=== PATIENT | female | born 1995 | race Caucasian/White ===

== ENCOUNTER 2020-05-29 22:26 | Emergency (ER) | payer MEDICAID, SELFPAY ==
[2020-05-29 22:36] VITALS: PULSE 108; RESP 18; TEMP 36.9; O2SAT 100; BMI 24.8
--- NOTE | 2020-05-29 23:02 | ED_ITS ---
HPI - Female Genitourinary General Chief complaint: Abdominal Pain Stated complaint: pelvic pain Time Seen by Provider: 05/29/20 22:55 Source: patient Mode of arrival: ambulatory Limitations: no limitations History of Present Illness HPI Narrative: Patient is 6.3 weeks 3 para 3 noticed pain left lower quadrant for last 3- 4 days getting worse radiating to the back. No urinary symptoms no vaginal discharge or bleeding has seen OBGYN in the past but no ultrasound has been done. No nausea/vomiting/fever/no urinary symptoms Related Data Allergies Allergy/AdvReac Type Severity Reaction Status Date / Time No Known Allergies Allergy Verified 05/29/20 22:55 Review of Systems Review of Systems: REVIEW OF SYSTEMS: Pertinent positives and negatives are stated above in the history. GEN: no fevers, chills, fatigue HEENT: no nasal congestion, sore throat, ear pain NEURO: no headache, dizziness, focal weakness PULM: no cough, shortness of breath CV: no chest pain, palpitations, LE edema ABD: no nausea, vomiting, diarrhea : no dysuria, urgency, frequency SKIN: no rash ROS otherwise negative x 10 [facility] Past Medical History Medical History No known health problems Social History Social History Alcohol intake: never Smoking Status: Never smoker Smoked in Last 30 Days: No Use of substances other than those prescribed or required for medical reasons: No Advance Directives: No Advance Directives Information Provided: No Physical Exam Vital Signs: Vital Signs: Last Vital Signs Temp 98.5 F 05/29/20 22:36 Pulse 108 H 05/29/20 22:36 Resp 18 05/29/20 22:36 Pulse Ox 100 05/29/20 22:36 Body Mass Index 24.8 Appearance: Alert. Oriented X3. No acute distress. Eyes: Pupils equal, round and reactive to light. ENT: Pharynx normal. Neck: Normal inspection. Neck supple. CVS: Normal heart rate and rhythm. Pulses normal. Respiratory: No respiratory distress. Breath sounds normal. Abdomen: Soft and mild tenderness left lower quadrant no rebound tenderness or guarding no CVA tenderness. Skin: Skin warm and dry. Normal skin color. Normal skin turgor. Extremities: No lower extremity edema. Good range of movement Neuro: Oriented X 3. No motor deficit. No sensory deficit. Course Course Course Narrative: Ultrasound showed IUP no signs of ectopic workup showed she has a UTI will discharge her home on Macrobid MDM - Female Genitourinary MDM Narrative Medical decision making narrative: Patient 6.3 weeks with left lower quadrant pain for last 3 days will do ultrasound to rule out ectopic Differential Diagnosis Differential diagnosis: Likely urinary tract infection and ovarian cyst Lab Data Attestation: I reviewed the patient's lab results. Result diagrams: 05/29/20 23:19 05/29/20 23:19 Labs: Lab Results 05/29/20 05/29/20 05/29/20 Range/Units 23:19 23:19 23:19 WBC 7.8 (4.8-10.8) X10*3/uL RBC 4.39 (4.20-5.50) X10*6/uL Hgb 12.2 (12.0-16.0) g/dl Hct 36.1 L (37-47) % MCV 82.2 (80-98) fL MCH 27.8 (27.0-33.0) pg MCHC 33.8 (31.0-35.0) g/dl RDW 12.6 (11.0-16.0) % Plt Count 211 (160-400) X10*3/uL MPV 10.5 (9.4-12.3) fL Immature Gran % (Auto) 0.3 (0.0-0.4) % Neut % (Auto) 69.5 (45-73) % Lymph % (Auto) 20.1 (20-40) % Crisp % (Auto) 8.1 (2-11) % Eos % (Auto) 1.7 (0-4) % Baso % (Auto) 0.3 (0-2) % Lymph # (Auto) 1.6 (1.2-4.9) X10*3/uL Crisp # (Auto) 0.6 (0.1-1.2) X10*3/uL Eos # (Auto) 0.1 (0.0-0.4) X10*3/uL Baso # (Auto) 0.0 (0.0-0.2) X10*3/uL Abs Immat Gran (auto) 0.02 (0.00-0.03) X10*3/uL Absolute Neuts (auto) 5.4 (2.0-8.3) X10*3/uL Absolute Nucleated RBC 0.000 (0.0-0.012) X10*3/uL Nucleated RBC % (auto) 0.0 (0.0-0.2) /100WBC Sodium 136 (135-145) mmol/L Potassium 3.6 (3.3-5.1) mmol/l Chloride 106 (96-108) mmol/L Carbon Dioxide 21 L (22-29) mmol/L Anion Gap 13 (12-20) BUN 8 L (9-16) mg/dL Creatinine 0.72 (0.5-1.4) mg/dL Estim Creat Clear Calc 105.0 Estimated GFR > 60 Random Glucose 96 (60-115) mg/dL Calcium 8.9 (8.4-10.2) mg/dL Beta HCG, Quant 41302 mIU/mL Urine Color Urine Appearance Urine pH (5.0-8.0) Ur Specific [place] (1.005-1.025) Urine Protein (NEG-TRACE) MG/DL Urine Glucose (UA) (NEG) MG/DL Urine Ketones (NEG) MG/DL Urine Blood (NEG) Urine Nitrite (NEG) Ur Leukocyte Esterase (NEG) Urine RBC (0) /HPF Urine WBC (0-4) /HPF Ur Squamous Epith Cells /LPF Urine Bacteria /LPF 05/29/20 Range/Units 23:19 WBC (4.8-10.8) X10*3/uL RBC (4.20-5.50) X10*6/uL Hgb (12.0-16.0) g/dl Hct (37-47) % MCV (80-98) fL MCH (27.0-33.0) pg MCHC (31.0-35.0) g/dl RDW (11.0-16.0) % Plt Count (160-400) X10*3/uL MPV (9.4-12.3) fL Immature Gran % (Auto) (0.0-0.4) % Neut % (Auto) (45-73) % Lymph % (Auto) (20-40) % Crisp % (Auto) (2-11) % Eos % (Auto) (0-4) % Baso % (Auto) (0-2) % Lymph # (Auto) (1.2-4.9) X10*3/uL Crisp # (Auto) (0.1-1.2) X10*3/uL Eos # (Auto) (0.0-0.4) X10*3/uL Baso # (Auto) (0.0-0.2) X10*3/uL Abs Immat Gran (auto) (0.00-0.03) X10*3/uL Absolute Neuts (auto) (2.0-8.3) X10*3/uL Absolute Nucleated RBC (0.0-0.012) X10*3/uL Nucleated RBC % (auto) (0.0-0.2) /100WBC Sodium (135-145) mmol/L Potassium (3.3-5.1) mmol/l Chloride (96-108) mmol/L Carbon Dioxide (22-29) mmol/L Anion Gap (12-20) BUN (9-16) mg/dL Creatinine (0.5-1.4) mg/dL Estim Creat Clear Calc Estimated GFR Random Glucose (60-115) mg/dL Calcium (8.4-10.2) mg/dL Beta HCG, Quant mIU/mL Urine Color YELLOW Urine Appearance HAZY Urine pH 6.5 (5.0-8.0) Ur Specific [place] 1.025 (1.005-1.025) Urine Protein NEG (NEG-TRACE) MG/DL Urine Glucose (UA) NEG (NEG) MG/DL Urine Ketones NEG (NEG) MG/DL Urine Blood TRACE (NEG) Urine Nitrite NEG (NEG) Ur Leukocyte Esterase 2+ H (NEG) Urine RBC 1-4 (0) /HPF Urine WBC 5-9 H (0-4) /HPF Ur Squamous Epith Cells 2+ /LPF Urine Bacteria 3+ /LPF
[2020-05-29 23:24] LABS: Basophils Percent Auto 0.3 % (0-2); Eosinophils Absolute Auto 0.1 X10*3/uL (0.0-0.4); Eosinophils Percent Auto 1.7 % (0-4); Hematocrit 36.1 % (37-47); Hemoglobin 12.2 g/dl (12.0-16.0); Imm Gran Abs Auto 0.02 X10*3/uL (0.00-0.03); Imm Gran Pct Auto 0.3 % (0.0-0.4); Lymphocytes Absolute Auto 1.6 X10*3/uL (1.2-4.9); Lymphocytes Percent Auto 20.1 % (20-40); MANUAL DIFF FLAG NO; Mean Corpuscular HGB Conc 33.8 g/dl (31.0-35.0); Mean Corpuscular Hemoglobin 27.8 pg (27.0-33.0); Mean Corpuscular Volume 82.2 fL (80-98); Mean Platelet Volume 10.5 fL (9.4-12.3); Monocytes Absolute Auto 0.6 X10*3/uL (0.1-1.2); Monocytes Percent Auto 8.1 % (2-11); Neutrophils Absolute Auto 5.4 X10*3/uL (2.0-8.3); Neutrophils Percent Auto 69.5 % (45-73); Platelet Count 211 X10*3/uL (160-400); Red Blood Count 4.39 X10*6/uL (4.20-5.50); Red Cell Distribution Width 12.6 % (11.0-16.0); White Blood Count 7.8 X10*3/uL (4.8-10.8)
[2020-05-29 23:25] LABS: Glucose Urine UA NEG (NEG); Leukocyte Esterase Urine 2+ (NEG); Nitrite Urine NEG (NEG); PH 6.5 (5.0-8.0); Specific Gravity - Urine 1.025 (1.005-1.025); Urine Blood TRACE (NEG); Urine Ketones NEG (NEG); Urine Protein NEG (NEG-TRACE)
[2020-05-29 23:30] LABS: Appearance Urine HAZY; Color Urine YELLOW
[2020-05-29 23:35] LABS: Bacteria Urine 3+ /LPF; Squamous Epithelial Cell Urine 2+ /LPF
--- NOTE | 2020-05-29 23:44 | PC.NURSE ---
PT A&Ox4 SKIN PWD RESPIRATIONS EVEN UNLABORED, AMB TO BATHROOM STEADY GAIT. AWAITING LAB RESULTS AND US. AWARE OF PLAN OF CARE.
[2020-05-29 23:51] LABS: Anion Gap 13 (12-20); Blood Urea Nitrogen 8 mg/dL (9-16); Calcium 8.9 mg/dL (8.4-10.2); Carbon Dioxide 21 mmol/L (22-29); Chloride 106 mmol/L (96-108); Estimated Glomerular Filt Rate > 60; Glucose Random 96 mg/dL (60-115); Potassium 3.6 mmol/l (3.3-5.1); Sodium 136 mmol/L (135-145)
--- NOTE | 2020-05-30 | US_ITS ---
EXAMINATION: OBSTETRIC ULTRASOUND - FIRST TRIMESTER CLINICAL INFORMATION: Left lower quadrant pain. Evaluate for ectopic . COMPARISON: None TECHNIQUE: Transabdominal and transvaginal imaging of the uterus was performed utilizing rolon scale and color doppler technique, with m-mode imaging. FINDINGS: Well-formed intrauterine gestational sac with pole measuring 0.2 cm corresponding to a gestational age of 5 weeks, 6 days. This coincides with the size of the gestational sac with a mean sac diameter of 1.23 cm corresponding to a gestational age of 6 weeks, 0 days. A normal yolk sac is present. cardiac activity detected at 96 bpm, which is normal this early in the gestation. There is a small subchorionic hemorrhage measuring 0.7 x 0.4 cm near the uterine fundus There is a 2.3 x 1.3 x 2.0 cm corpus luteum within the right ovary. Right ovary measures 4.1 x 2.0 x 2.4 cm. Left ovary measures 3.5 x 1.7 x 2.2 cm. No evidence of ectopic . US/US OB <= 14 weeks fetus IMPRESSION: * Single live intrauterine with estimated gestational age by ultrasound of 5 weeks, 6 days, for an estimated date of delivery 01/23/2021. * Tiny subchorionic hemorrhage at the uterine fundus.
[2020-05-30] MEDS: Nitrofurantoin Monohyd/M-Cryst 100 MG CAPSULE PO (00:56)
--- NOTE | 2020-05-30 01:06 | PC.NURSE ---
PT MEDICATED PER MAR, CONTINUES TO AWAIT US. NO CHANGE IN PHYSICAL ASSESSMENT.
--- NOTE | 2020-05-30 01:35 | US_ITS ---
EXAMINATION: OBSTETRIC ULTRASOUND - FIRST TRIMESTER CLINICAL INFORMATION: Left lower quadrant pain. Evaluate for ectopic . COMPARISON: None TECHNIQUE: Transabdominal and transvaginal imaging of the uterus was performed utilizing rolon scale and color doppler technique, with m-mode imaging. FINDINGS: Well-formed intrauterine gestational sac with pole measuring 0.2 cm corresponding to a gestational age of 5 weeks, 6 days. This coincides with the size of the gestational sac with a mean sac diameter of 1.23 cm corresponding to a gestational age of 6 weeks, 0 days. A normal yolk sac is present. cardiac activity detected at 96 bpm, which is normal this early in the gestation. There is a small subchorionic hemorrhage measuring 0.7 x 0.4 cm near the uterine fundus There is a 2.3 x 1.3 x 2.0 cm corpus luteum within the right ovary. Right ovary measures 4.1 x 2.0 x 2.4 cm. Left ovary measures 3.5 x 1.7 x 2.2 cm. No evidence of ectopic . US/US OB transvaginal IMPRESSION: * Single live intrauterine with estimated gestational age by ultrasound of 5 weeks, 6 days, for an estimated date of delivery 01/23/2021. * Tiny subchorionic hemorrhage at the uterine fundus.
== END 2020-05-30 02:29 | disposition home or self-care (01) ==
PROVIDERS: Emergency Provider Internal Medicine
DX: O23.11 Infections of bladder in pregnancy, first trimester (principal); N39.0 Urinary tract infection, site not specified; Z3A.01 Less than 8 weeks gestation of pregnancy
CPT/HCPCS: 36415; 76801; 76817; 80048; 81001; 84702; 85025; 87086; 87088; 87186; 99284

== ENCOUNTER 2020-06-19 23:22 | Emergency (ER) | payer MEDICAID, SELFPAY ==
[2020-06-19 23:44] VITALS: BP 107/70; PULSE 80; RESP 16; TEMP 37.7; O2SAT 100; BMI 24.7
--- NOTE | 2020-06-20 00:01 | ED.GENADULT ---
HPI - General Adult General Chief complaint: General Medical Stated complaint: INFECTED PIERCING Time Seen by Provider: 06/19/20 23:57 Source: patient Mode of arrival: ambulatory Limitations: no limitations History of Present Illness HPI narrative: 25 yo female with a couple of days of dermal implant infection and loosening of hardware hx of same in past, she is Onset (ago): day(s) (2) Location: face Radiation: non-radiation Severity: mild Quality: aching Pain Consistency: constant Relieving factors: none Exacerbating factors: none Associated symptoms: denies other symptoms Treatments prior to arrival: none Related Data Previous Rx's Medication Instructions Recorded nitrofurantoin monohyd/m-cryst 100 mg PO BID #20 cap 05/30/20 [Macrobid] mupirocin 1 appl TOPICAL BID 7 Days #15 g 06/20/20 Allergies Allergy/AdvReac Type Severity Reaction Status Date / Time No Known Allergies Allergy Verified 05/29/20 22:55 Review of Systems Review of Systems: Constitutional : No Fever, No Chills, Cardiovascular : No Chest Pain, No SOB Respiratory : No Dyspnea Gastrointestinal : No abdominal pain Musculoskeletal : No Joint Swelling Skin : No rash, positive skin lesion Neuro : No Weakness, No Numbness Psych : No SI/HI PMFSH Past Medical History Attestation statement: The following information was validated with the patient. Medical History No known health problems Social History Social History Alcohol intake: never Smoking Status: Never smoker Smoked in Last 30 Days: No Use of substances other than those prescribed or required for medical reasons: No Advance Directives: No Advance Directives Information Provided: No Physical Exam Vital Signs: Vital Signs: Last Vital Signs Temp 99.8 F 06/19/20 23:44 Pulse 80 06/19/20 23:44 Resp 16 06/19/20 23:44 BP 107/70 06/19/20 23:44 Pulse Ox 100 06/19/20 23:44 Body Mass Index 24.7 Appearance: Alert. Oriented X3. No acute distress. Eyes: Pupils equal, round and reactive to light. ENT: Pharynx normal. the patient's left cheek has no overt cellulitis but the first dermal implant on her zygomatic arch (she has 3) is slightly swollen and red, no exudate the outside part of the jewelry is hanging on by a small area and fractured from the underlying base no overt abscess or cellulitis Neck: Normal inspection. Neck supple. CVS: Normal heart rate and rhythm. Pulses normal. Respiratory: No respiratory distress. Breath sounds normal. Abdomen: Soft and nontender. Skin: Skin warm and dry. Normal skin color. Normal skin turgor. Extremities: No lower extremity edema. No calf ttp Neuro: Oriented X 3. No motor deficit. No sensory deficit. Procedures Foreign Body Removal Time Out Performed: yes Site: left Description of foreign body: other (dermal implant) Sedation/Analgesia: none Technique: removal with forceps and irrigation Confirmed by:: direct visualization Complications: none Medical Decision Making Medical Records Medical records narrative: 25 yo female here with isolated inflammation of her L cheek dermal implant will inject lidocaine and attempt to remove pending the removal will irrigate and apply mupirocin dispo per results and findings. Discharge Plan Discharge Clinical Impression: Foreign body (FB) in soft tissue Patient Disposition: Home, Self-Care Instructions: Soft Tissue Foreign Body (ED) Additional Instructions: return to ED for any worsening symptoms or concerns monitor for erythema, purulent exudate, fevers, increased swelling and redness Prescriptions: New mupirocin 2 % ointment 1 appl topical BID 7 Days Qty: 15 RF: 0 No Action nitrofurantoin monohyd/m-cryst [Macrobid] 100 mg capsule 100 mg PO BID Qty: 20 RF: 0
[2020-06-20] MEDS: Lidocaine HCl 2 % MPF 5 ML VIAL SUBCUT (00:11)
--- NOTE | 2020-06-20 01:03 | PC.NURSE ---
DR CARTER REMOVED PIERCING FROM SIDE OF FACE DERM PIERCING.
== END 2020-06-20 01:05 | disposition home or self-care (01) ==
PROVIDERS: Emergency Provider Emergency Medicine
DX: O26.891 Other specified pregnancy related conditions, first trimester (principal); S01.142A Puncture wound with foreign body of left eyelid and periocular area, initial encounter; W45.8XXA Other foreign body or object entering through skin, initial encounter; Z3A.01 Less than 8 weeks gestation of pregnancy; Y93.89 Activity, other specified; Y92.9 Unspecified place or not applicable; Y99.9 Unspecified external cause status
CPT/HCPCS: 99284

== ENCOUNTER 2020-10-28 18:36 | Emergency (ER) | payer OTHER, MEDICAID, SELFPAY ==
[2020-10-28 19:08] VITALS: BP 106/70; PULSE 111; RESP 16; TEMP 36.7; O2SAT 98; BMI 27.4
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
[2020-10-28] MEDS: Acetaminophen 325 MG TABLET 975 MG PO (19:39)
--- NOTE | 2020-10-28 20:24 | PC.NURSE ---
DR STEVEN AWARE OF HEART TONES 155. PT WILL GO HOME AND F/U WITH OBGYN.
== END 2020-10-28 19:42 | disposition home or self-care (01) ==
PROVIDERS: Emergency Provider Emergency Medicine
DX: O9A.213 Injury, poisoning and certain other consequences of external causes complicating pregnancy, third trimester (principal); S16.1XXA Strain of muscle, fascia and tendon at neck level, initial encounter; V43.52XA Car driver injured in collision with other type car in traffic accident, initial encounter; Z3A.28 28 weeks gestation of pregnancy; Y93.89 Activity, other specified; Y92.414 Local residential or business street as the place of occurrence of the external cause; Y99.8 Other external cause status
CPT/HCPCS: 99283; 99284

== ENCOUNTER 2020-11-20 13:36 | Emergency (ER) | payer MEDICAID, SELFPAY ==
[2020-11-20 13:39] VITALS: BP 108/82; PULSE 131; RESP 22; TEMP 36.6; O2SAT 98; BMI 30.2
--- NOTE | 2020-11-20 13:54 | ED.PREGNANCY ---
HPI - General Chief complaint: OB Stated complaint: ?labor Time Seen by Provider: 11/20/20 13:54 History of Present Illness HPI Narrative: Patient is a 25-year-old female distal 3rd . First to the delivered as vaginal . Patient complaining having constant contraction since approximately 11:00. Presented to the emergency department for further evaluation. This has been uneventful. She is approximately 31 weeks . She has been getting care over at [facility]. Patient feels contraction every 5 minutes. There is no fever no chills. Patient denies any vaginal bleeding. Denies any gush of fluid being lied to the vaginal area. Patient is from home. No allergies no medications. Related Data : 3 Para: 2 Allergies Allergy/AdvReac Type Severity Reaction Status Date / Time No Known Allergies Allergy Verified 10/28/20 19:14 [No Known Allergies*] Review of Systems Review of Systems: Constitutional: No Weight loss, No Fever, No Chills, No Night Sweats, No Fatigue, No Malaise ENT/Mouth: No Hearing loss, No Ear Pain, No Nasal Congestion, No Sinus Pain, No Hoarseness, No sore throat, No Rhinorrhea, No Swallowing Difficulty Eyes: No Eye Pain, No Swelling, No Redness, No Foreign Body, No Discharge, No Vision Changes Cardiovascular: No Chest Pain, No SOB, No Dyspnea on Exertion, No Orthopnea, No Edema, No Palpitations Respiratory: No Cough, No Sputum, No Wheezing, No Smoke Exposure, No Dyspnea Gastrointestinal: No Nausea, No Vomiting, No Diarrhea, No Constipation, positive abdominal Pain, No Hematochezia, No Melena Genitourinary: no irregular bleeding, No Dysuria, No Urinary Frequency, No Hematuria, No Urinary Incontinence, No Urgency, No Flank Pain, No Urinary Flow Changes, No Hesitancy Musculoskeletal: No joint pain, No Myalgias, No Joint Swelling Skin: No Skin Lesions, No rash Neuro: No Weakness, No Numbness, No Paresthesias, No Loss of Consciousness, No Dizziness, No Headache Psych: No Anxiety/Panic, No Depression, No SI/HI/AH/VH, No Social Issues, Heme/Lymph: No Bruising, No Bleeding,No Lymphadenopathy Endocrine: No Polyuria, No Polydipsia, No Temperature Intolerance [facility] Past Medical History Attestation statement: The following information was validated with the patient. Medical History No known health problems : 3 Para: 2 Social History Social History Alcohol intake: never Advance Directives: Yes Advance Directives Information Provided: Yes Advance Directives on File: No Patient : Yes Physical Exam Vital Signs: Vital Signs: Last Vital Signs Temp 97.9 F 11/20/20 13:39 Pulse 131 H 11/20/20 13:39 Resp 22 H 11/20/20 13:39 BP 108/82 11/20/20 13:39 Pulse Ox 98 11/20/20 13:39 Body Mass Index 30.2 Appearance: Alert. Oriented X3. No acute distress. Eyes: Pupils equal, round and reactive to light. ENT: Pharynx normal. Neck: Normal inspection. Neck supple. No lymph nodes noted. No crepitus CVS: Normal heart rate and rhythm. Pulses normal. Normal S1 and S2 Respiratory: No respiratory distress. Breath sounds normal. No Wheezing. No rales Abdomen: Gravid uterus above the umbilicus. heart tone 154. good BS x4 Pelvic exam done with nurse Christen and Alvina present. There is no lesion noted in the vulva. The vaginal vault is empty. Patient's cervix is closed. Skin: Skin warm and dry. Normal skin color. Normal skin turgor. Extremities: No lower extremity edema. Neurovascular intact to all extremities. No Lacerations. No Rash Neuro: Oriented X 3. No motor deficit. No sensory deficit. Moving all extermities. No slurred speech MDM - OB/Uterine Contractions MDM Narrative Medical decision making narrative: Patient's case discussed with Dr. Ivan Mcdonough [facility], accepted patient's transfer. Patient normally gets OBGYN care at [facility]. EMS contacted. Will take patient straight to labor and delivery. Critical Care Time Critical Care Time Total Critical Care Time: 40 Attestation: I have personally provided 40 minutes of critical care time exclusive of time spent on separately billable procedures. Time includes review of lab data, radiology results, discussion with consultants, and monitoring for potential decompensation. Interventions were performed as documented above Discharge Plan Discharge Clinical Impression: Premature labor, Abdominal pain Patient Disposition: [facility]
[2020-11-20 14:00] VITALS: BP 115/78; RESP 20
--- NOTE | 2020-11-20 14:02 | PC.NURSE ---
HEART TONES 155
== END 2020-11-20 14:24 | disposition short-term general hospital (02) ==
PROVIDERS: Emergency Provider Emergency Medicine Emergency Medical Services
DX: O60.03 Preterm labor without delivery, third trimester (principal)
CPT/HCPCS: 99285

== ENCOUNTER 2020-12-12 22:39 | Emergency (ER) | payer MEDICAID, SELFPAY ==
[2020-12-12 22:43] VITALS: BP 120/70; PULSE 124; RESP 20; TEMP 36.6; O2SAT 99; BMI 29.2
--- NOTE | 2020-12-12 23:00 | ED.URI ---
HPI - URI/Sore Throat General Chief Complaint: Upper Respiratory Symptoms Stated Complaint: diff breathing Time Seen by Provider: 12/12/20 22:59 History of Present Illness HPI Narrative: 25 years old presented today she is approximately 35 weeks . Complaining of coughing congestion upper respiratory symptoms. No abdominal pain. Having contraction from time to time. no regular contractions. No vaginal bleeding. No discharge. Patient from home. Symptoms been ongoing for approximately 2 days. She wanted a COVID test. No change in smell and taste. Related Data Allergies Allergy/AdvReac Type Severity Reaction Status Date / Time No Known Allergies Allergy Verified 10/28/20 19:14 [No Known Allergies*] Review of Systems Review of Systems: Positive coughing upper respiratory symptom no fever no travel all systems reviewed otherwise negative PMFSH Past Medical History Attestation statement: The following information was validated with the patient. Medical History No known health problems Social History Social History Alcohol intake: never Advance Directives: No Patient : Yes Physical Exam Vital Signs: Vital Signs: Last Vital Signs Temp 97.8 F 12/12/20 22:43 Pulse 124 H 12/12/20 22:43 Resp 20 12/12/20 22:43 BP 120/70 12/12/20 22:43 Pulse Ox 99 12/12/20 22:43 Body Mass Index 29.2 Appearance: Alert. Oriented X3. No acute distress. Eyes: Pupils equal, round and reactive to light. ENT: Pharynx normal. Neck: Normal inspection. Neck supple. No lymph nodes noted. No crepitus CVS: Normal heart rate and rhythm. Pulses normal. Normal S1 and S2 Respiratory: No respiratory distress. Breath sounds normal. No Wheezing. No rales Abdomen: gravid abdomen Skin: Skin warm and dry. Normal skin color. Normal skin turgor. Extremities: No lower extremity edema. Neurovascular intact to all extremities. No Lacerations. No Rash Neuro: Oriented X 3. No motor deficit. No sensory deficit. Moving all extermities. No slurred speech MDM - URI/Sore Throat MDM Narrative Medical decision making narrative: well-appearing no acute distress. Lungs are clear. O2 sats 99% on room air. Will get a coronavirus test. Will have patient follow strict home quarantine. Close follow-up outpatient basis. In stable condition. Will obtain heart tone. Differential Diagnosis Differential diagnosis: Likely upper respiratory infection Discharge Plan Discharge Clinical Impression: Upper respiratory infection Patient Disposition: Home, Self-Care Instructions: Upper Respiratory Infection (ED) Additional Instructions: Please follow strict home quarantine. Risks of Coronavirus 19 still exist. Referrals: Randa Charles MD [Primary Care Provider] - 2 days
[2020-12-12 23:16] LABS: COVID-19 Test Negative (Negative)
== END 2020-12-12 23:20 | disposition home or self-care (01) ==
PROVIDERS: Emergency Provider Emergency Medicine Emergency Medical Services; PCP Internal Medicine
DX: O99.513 Diseases of the respiratory system complicating pregnancy, third trimester (principal); J06.9 Acute upper respiratory infection, unspecified; Z3A.25 25 weeks gestation of pregnancy; Z20.822 Contact with and (suspected) exposure to COVID-19
CPT/HCPCS: 36415; 87635; 99283

== ENCOUNTER 2021-01-16 07:06 | Emergency (ER) | payer MEDICAID, SELFPAY ==
[2021-01-16] VITALS (7 sets, daily range): BP systolic 135–158; BP diastolic 82–103; PULSE 56–77; RESP 20–22; TEMP 36.9–37.1; O2SAT 98–100; BMI 30.3
--- NOTE | 2021-01-16 | ECG_ITS ---
Test Reason : CHEST PAIN Blood Pressure : / mmHG Vent. Rate : 074 BPM Atrial Rate : 074 BPM P-R Int : 196 ms QRS Dur : 072 ms QT Int : 380 ms P-R-T Axes : 058 043 027 degrees QTc Int : 421 ms Normal sinus rhythm with sinus arrhythmia Possible Left atrial enlargement Borderline ECG No previous ECGs available Referred By: Valeriano Brice Electronically Signed By:RENETTA MAYA
--- NOTE | ~2021-01-16 | XR_ITS ---
EXAMINATION: XR CHEST CLINICAL INFORMATION: Chest pain COMPARISON: None TECHNIQUE: 2 views of the chest were obtained. FINDINGS: Lungs are hypoinflated and, as a result, the lower lobes are suboptimally evaluated. The left lateral costophrenic sulcus is slightly blunted. A trace left pleural effusion is suspected. There is a small right pleural effusion. No overt consolidation. No pulmonary edema or pneumothorax. Cardiomediastinal silhouette has normal size and contour. The bones are normal. Cholecystectomy clips in the right upper quadrant. XR/XR chest 2V IMPRESSION: * Lungs are hypoinflated. * Trace left pleural effusion and small right pleural effusion.
--- NOTE | ~2021-01-16 | CT_ITS ---
EXAMINATION: CT ANGIOGRAM OF THE CHEST WITH AND WITHOUT CONTRAST (CT PULMONARY ANGIOGRAM FOR PE) CLINICAL INFORMATION: PE elevated D-dimer. COMPARISON: None. TECHNIQUE: Prior to contrast administration, noncontrast localization images were obtained. Subsequently, multidetector volumetric imaging was performed from the thoracic inlet to below the diaphragms following the administration of 80 mL Omnipaque 350 intravenous contrast. No contrast reaction reported. Sagittal, coronal, and MIP oblique sagittal reformatted images were obtained on the CT workstation, uploaded to PACS, and reviewed. This CT examination was performed using dose optimization techniques as appropriate, variously including the following: *Automated exposure control. *Adjustment of mA and/or kV according to patient size (this includes techniques or standardized protocols for targeted exams where dose is matched to indication/reason for exam; i.e. extremities or head). *Use of iterative reconstruction technique. Total exam dose-length product 246 mGy-cm. FINDINGS: QUALITY OF STUDY/CONTRAST BOLUS: Satisfactory. PULMONARY ARTERIES: No central or segmental pulmonary emboli. THORACIC AORTA: No aneurysm or dissection. LUNG: There is a bibasilar dependent atelectasis or scarring. PLEURA: There are bilateral small pleural effusions, the right minimally larger than the left. MEDIASTINUM: The heart size is normal. The central trachea and the bronchi are widely patent. Thyroid lobes are symmetric and normal. No abnormally sized mediastinal or hilar lymph nodes seen. There is no pericardial effusion. No evidence of septal bowing or right heart strain. CHEST WALL/AXILLA: No axillary or internal mammary lymphadenopathy. OSSEOUS STRUCTURES: No acute or suspicious osseous abnormality. UPPER ABDOMEN: Visualized liver, spleen, pancreas, bilateral adrenal glands and visualized kidneys are unremarkable. The gallbladder has been surgically removed. No reflux of contrast into the hepatic veins to suggest elevated right heart pressures. CT/CT angio chest PE protocol IMPRESSION: No evidence of PE. No evidence of aortic dissection or aneurysm. There is bibasilar dependent atelectasis. VTE: negative.
--- NOTE | 2021-01-16 07:33 | ED_ITS ---
HPI - Chest Pain General Chief Complaint: Chest Pain Stated Complaint: Chest pain Time Seen by Provider: 01/16/21 08:58 Source: patient and family Mode of arrival: ambulatory Limitations: no limitations History of Present Illness HPI narrative: 25-year-old female 4 days presents emergency department complaining of chest pain. Patient states she woke up child is feeding her and made her pain worse to center of her chest. Patient denies fevers cough but states she has associated shortness of breath denies any falls or injuries or lifting. Patient states she has had this problem multiple times in the past. Related Data Home Medications Medication Instructions Recorded Confirmed No Known Home Meds 07/23/20 07/23/20 Allergies Allergy/AdvReac Type Severity Reaction Status Date / Time No Known Allergies Allergy Verified 05/29/20 22:55 Review of Systems Review of Systems: Review of systems: General: Patient denies any fever chills recent illness or falls Musculoskeletal: Denies back pain or body aches or other injuries HEENT: denies headache, runny nose, ear pain Respiratory: denies shortness of breath, cough Cardiovascular: chest pain no palpitations : denies dysuria, frequency Abdomen: no nausea vomiting denies abdominal pain Extremities: no swelling, no pain Skin: no diaphoresis Yes all other systems are reviewed and are negative [facility] Past Medical History Medical History Generalized anxiety disorder with panic attacks History of trauma No known health problems Surgical History History of cholecystectomy Family History Family History Mother No problems noted. Sister No problems noted. Brother No problems noted. Father Unknown family medical history Social History Social History Alcohol intake: never Physical Exam Vital Signs: Vital Signs: Last Vital Signs Temp 98.8 F 01/16/21 08:26 Pulse 70 01/16/21 09:32 Resp 22 H 01/16/21 08:26 BP 158/98 H 01/16/21 10:37 Pulse Ox 99 01/16/21 08:26 Body Mass Index 30.3 Neurological exam: CN II- XII tested. Patient is alert and oriented to person place and time. Patient has no dysphagia or dysarthia, denies good vision in all four vision tanner no nystagmus on exam, good strength to upper and lower extremities with normal reflexes to brachioradialis, wrist, patella and achilles. Negative romberg, good finger to nose and heel to parker. General: Well-appearing well-nourished in no signs of distress HEENT: Normocephalic atraumatic Neck: No signs of JVD, no masses no tenderness or lymphadenopathy Cardiovascular: Regular rate and rhythm Respiratory: Clear to auscultation bilaterally Abdomen: Soft nontender no masses Extremities: Normal pedal pulses no signs of edema Skin: Dry warm no rashes Back: No tenderness full ROM MDM - Chest Pain MDM Narrative Medical decision making narrative: Concern for preeclampsia ID or a PE. She also could have atypical chest pain and anxiety. I gave the patient Ativan and fluids. Labs show a minor elevation in ALT and alk-phos as well as a very elevated D- dimer. Her blood pressure initially was 156/96 I will consult OB. [address] Hernandez who agrees the patient would need to be transferred to [facility]. I will give the patient labetalol and magnesium. 0917 I spoke with [facility] 4 days post with chest pain no cough XR is clear. Concern that the patient needs transfer. They will speak with OB. 1015 I spoke with [facility] resident who agreed with plan to transfer. Accepted by [facility] OB Lab Data Result diagrams: 01/16/21 07:39 01/16/21 07:38 Labs: Lab Results 01/16/21 01/16/21 01/16/21 Range/Units 07:38 07:38 07:38 WBC (4.8-10.8) X10*3/uL RBC (4.20-5.50) X10*6/uL Hgb (12.0-16.0) g/dl Hct (37-47) % MCV (80-98) fL MCH (27.0-33.0) pg MCHC (31.0-35.0) g/dl RDW (11.0-16.0) % Plt Count (160-400) X10*3/uL MPV (9.4-12.3) fL Immature Gran % (Auto) Neut % (Auto) Lymph % (Auto) [place] % (Auto) Eos % (Auto) Baso % (Auto) Lymph # (Auto) [place] # (Auto) Eos # (Auto) Baso # (Auto) Abs Immat Gran (auto) Absolute Neuts (auto) Absolute Nucleated RBC (0.0-0.012) X10*3/uL Nucleated RBC % (auto) (0.0-0.2) /100WBC Neutrophils % (Manual) (45-73) % Band Neutrophils % (3-5) % Lymphocytes % (Manual) (20-40) % Eosinophils % (Manual) (0-4) % Basophils % (Manual) (0-1) % Metamyelocytes % % Abs Neuts (Manual) (2.2-7.9) X10*3/uL Lymphocytes # (Manual) (0.6-4.8) X10*3/uL Eosinophils # (Manual) (0.0-0.8) X10*3/UL Basophils # (Manual) (0.0-0.3) X10*3/uL Metamyelocytes # X10*3/uL Platelet Estimate (NORMAL) Plt Morphology Comment RBC Morphology Hypochromasia /OIF Microcytosis /OIF PT (9.9-13.0) SEC INR (0.9-1.1) D-Dimer 1790 NG/ML Sodium 144 (135-145) mmol/L Potassium 3.9 (3.3-5.1) mmol/L Chloride 108 (96-108) mmol/L Carbon Dioxide 25 (22-29) mmol/L Anion Gap 15 (12-20) BUN 9 (9-16) mg/dL Creatinine 0.65 (0.5-1.4) mg/dL Estim Creat Clear Calc 127.8 Estimated GFR > 60 Random Glucose 78 (60-115) mg/dL Calcium 9.0 (8.4-10.2) mg/dL Total Bilirubin 0.3 (0.0-1.0) mg/dL Direct Bilirubin 0.2 (0.0-0.5) mg/dL AST 26 (5-31) U/L ALT 36 H (0-31) U/L Alkaline Phosphatase 248 H (39-117) U/L Troponin I High Sens < 3.5 (<3.5-17.0) ng/L Total Protein 6.3 L (6.5-8.0) g/dL Albumin 3.4 L (3.5-5.0) g/dL Lipase 24 (8-78) U/L Urine Color Urine Appearance Urine pH (5.0-8.0) Ur Specific [place] (1.005-1.025) Urine Protein (NEG-TRACE) MG/DL Urine Glucose (UA) (NEG) MG/DL Urine Ketones (NEG) MG/DL Urine Blood (NEG) Urine Nitrite (NEG) Ur Leukocyte Esterase (NEG) Urine RBC (0) /HPF Urine WBC (0-4) /HPF Ur Squamous Epith Cells /LPF Urine Bacteria /LPF 01/16/21 01/16/21 01/16/21 Range/Units 07:39 07:39 09:25 WBC 9.0 (4.8-10.8) X10*3/uL RBC 3.85 L (4.20-5.50) X10*6/uL Hgb 9.1 L D (12.0-16.0) g/dl Hct 29.2 L (37-47) % MCV 75.8 L (80-98) fL MCH 23.6 L (27.0-33.0) pg MCHC 31.2 (31.0-35.0) g/dl RDW 15.6 (11.0-16.0) % Plt Count 360 D (160-400) X10*3/uL MPV 11.2 (9.4-12.3) fL Immature Gran % (Auto) Cancelled Neut % (Auto) Cancelled Lymph % (Auto) Cancelled [place] % (Auto) Cancelled Eos % (Auto) Cancelled Baso % (Auto) Cancelled Lymph # (Auto) Cancelled [place] # (Auto) Cancelled Eos # (Auto) Cancelled Baso # (Auto) Cancelled Abs Immat Gran (auto) Cancelled Absolute Neuts (auto) Cancelled Absolute Nucleated RBC 0.000 (0.0-0.012) X10*3/uL Nucleated RBC % (auto) 0.0 (0.0-0.2) /100WBC Neutrophils % (Manual) 68 (45-73) % Band Neutrophils % 10 H (3-5) % Lymphocytes % (Manual) 18 L (20-40) % Eosinophils % (Manual) 2 (0-4) % Basophils % (Manual) 1 (0-1) % Metamyelocytes % 1 % Abs Neuts (Manual) 7.0 (2.2-7.9) X10*3/uL Lymphocytes # (Manual) 1.6 (0.6-4.8) X10*3/uL Eosinophils # (Manual) 0.2 (0.0-0.8) X10*3/UL Basophils # (Manual) 0.1 (0.0-0.3) X10*3/uL Metamyelocytes # 0.1 X10*3/uL Platelet Estimate NORMAL (NORMAL) Plt Morphology Comment NORMAL RBC Morphology NOTED Hypochromasia 1+ (5-14) /OIF Microcytosis 2+ (15-30) /OIF PT 11.4 (9.9-13.0) SEC INR 1.0 (0.9-1.1) D-Dimer NG/ML Sodium (135-145) mmol/L Potassium (3.3-5.1) mmol/L Chloride (96-108) mmol/L Carbon Dioxide (22-29) mmol/L Anion Gap (12-20) BUN (9-16) mg/dL Creatinine (0.5-1.4) mg/dL Estim Creat Clear Calc Estimated GFR Random Glucose (60-115) mg/dL Calcium (8.4-10.2) mg/dL Total Bilirubin (0.0-1.0) mg/dL Direct Bilirubin (0.0-0.5) mg/dL AST (5-31) U/L ALT (0-31) U/L Alkaline Phosphatase (39-117) U/L Troponin I High Sens (<3.5-17.0) ng/L Total Protein (6.5-8.0) g/dL Albumin (3.5-5.0) g/dL Lipase (8-78) U/L Urine Color COLORLESS Urine Appearance CLEAR Urine pH 6.5 (5.0-8.0) Ur Specific [place] <= 1.005 (1.005-1.025) Urine Protein NEG (NEG-TRACE) MG/DL Urine Glucose (UA) NEG (NEG) MG/DL Urine Ketones NEG (NEG) MG/DL Urine Blood 3+ H (NEG) Urine Nitrite NEG (NEG) Ur Leukocyte Esterase NEG (NEG) Urine RBC 0-2 (0) /HPF Urine WBC 0 (0-4) /HPF Ur Squamous Epith Cells NONE /LPF Urine Bacteria NONE /LPF ECG Data Rte 74 nsr normal intervals no signs of ischemia: Attestation: I personally reviewed and interpreted this ECG as follows: Critical Care Time Critical Care Time Critical Care Time: Yes Total Critical Care Time: 45 Attestation: Patient with preeclampsia I did speak with the protection consultant Dr. Mary Ndiaye as well as the patient and re-evaluated the patient I also consulted with [facility] about transfer. Discharge Plan Discharge Clinical Impression: Generalized anxiety disorder with panic attacks, Preeclampsia in period, Chest pain Patient Disposition: Xfer Acute Care Hospital Transfer Details: Ambulance xfer to [facility] Prescriptions: No Action No Known Home Meds RF: 0 Interventions: Acute Care Transfer Worksheet (ED) Last Done: 01/16/21 11:30 Discharge Date/Time: 01/16/21 11:32
[2021-01-16 07:45] LABS: Mean Corpuscular HGB Conc 31.2 g/dl (31.0-35.0); Red Blood Count 3.85 X10*6/uL (4.20-5.50)
[2021-01-16] MEDS: 0.9 % Sodium Chloride 500 ML 999 ML IV (07:46)
[2021-01-16] MEDS: LORazepam 2 MG/ML VIAL 0.5 MG IVPUSH (07:46)
[2021-01-16 07:50] LABS: Hematocrit 29.2 % (37-47); Hemoglobin 9.1 g/dl (12.0-16.0); Mean Corpuscular Hemoglobin 23.6 pg (27.0-33.0); Mean Corpuscular Volume 75.8 fL (80-98); Mean Platelet Volume 11.2 fL (9.4-12.3); Platelet Count 360 X10*3/uL (160-400); Red Cell Distribution Width 15.6 % (11.0-16.0)
--- NOTE | 2021-01-16 07:56 | PC.NURSE ---
Pt placed on tele, NSR. Skin wd, surgical wound to lower abd. Pt denies complications with surgery or . Pt tearful at this time. Iv placed to left ac, labs drawn and sent results pending. EKG obtained. VSS. FLuids hung and running wo, ativan admin per aug.
[2021-01-16 07:58] LABS: Prothrombin Time 11.4 SEC (9.9-13.0)
[2021-01-16 08:02] LABS: WBC ABN SCTR FOR CBC 1
[2021-01-16 08:10] LABS: Alanine Aminotransferase 36 U/L (0-31); Albumin Level 3.4 g/dL (3.5-5.0); Alkaline Phosphatase 248 U/L (39-117); Anion Gap 15 (12-20); Aspartate Amino Transferase 26 U/L (5-31); Bilirubin Direct 0.2 mg/dL (0.0-0.5); Bilirubin Total 0.3 mg/dL (0.0-1.0); Blood Urea Nitrogen 9 mg/dL (9-16); Carbon Dioxide 25 mmol/L (22-29); Chloride 108 mmol/L (96-108); Creatinine Clr Calc Pharmacy 127.8; Estimated Glomerular Filt Rate > 60; Glucose Random 78 mg/dL (60-115); Potassium 3.9 mmol/L (3.3-5.1); Sodium 144 mmol/L (135-145); Total Protein 6.3 g/dL (6.5-8.0)
[2021-01-16 08:13] LABS: Troponin-I High Sensitivity < 3.5 ng/L (<3.5-17.0)
[2021-01-16 08:14] LABS: D Dimer 1790 NG/ML
[2021-01-16 08:21] LABS: Band Neutrophils Percent 10 % (3-5); Basophils Abs Manual 0.1 X10*3/uL (0.0-0.3); Basophils Percent Manual 1 % (0-1); Eosinophils Absolute Manual 0.2 X10*3/UL (0.0-0.8); Eosinophils Percent Manual 2 % (0-4); Lymphocytes Absolute Manual 1.6 X10*3/uL (0.6-4.8); Lymphocytes Percent Manual 18 % (20-40); Metamyelocytes Absolute 0.1 X10*3/uL; Metamyelocytes Percent 1 %; Neutrophils Percent Manual 68 % (45-73)
[2021-01-16 08:25] LABS: Hypochromasia 1+ (5-14) /OIF; Microcytosis 2+ (15-30) /OIF; Platelet Estimate NORMAL (NORMAL); Platelet Morphology Comment NORMAL; RBC Morphology NOTED
[2021-01-16] MEDS: Ketorolac Tromethamine 15 MG/ML VIAL IV (08:29)
--- NOTE | 2021-01-16 08:55 | PC.NURSE ---
Pt sleeping at this time post admin of toradol for pain. Resp reg and even, NSR on monitor.
--- NOTE | 2021-01-16 09:07 | P.CONOB_ITS ---
REFRESH TECHNICIAN - CN: HPI Data of Consult Consult date: 01/16/21 Primary Care Provider: Randa Charles MD Consult Narrative Narrative: I was consulted by Dr. Valdes regarding Denilson Crisostomo who is a 25 year old female 3 days presenting with chest pain, elevated blood pressure the 150s over 90s, with elevated AST at 36, normal platelet cc:: CC: CAREER TECHNOLOGY TEACHER - Review of Systems Review of Systems ROS Unobtainable: All systems reviewed & are unremarkable except as noted in HPI and below Cardiovascular: Denies Palpatations, Loss of consciousness or Chest pain Respiratory: Denies Cough, Wheezing or Shortness of breath Musculoskeletal: Denies Low back pain Gastrointestinal: Denies Heartburn, Constipation, Diarrhea, Nausea or Vomiting Genitourinary: Denies Pain with urination, Burning with urination or Urinary frequency Neurological: Denies Migranes Psychological: Denies Depression OB PMFSH Past Medical History Medical History Generalized anxiety disorder with panic attacks History of trauma No known health problems Family History Family History Mother No problems noted. Sister No problems noted. Brother No problems noted. Father Unknown family medical history Surgical History Surgical History History of cholecystectomy Social History Social History Alcohol intake: never Advance Directives: No Advance Directives Information Provided: No Patient : No Meds Allergies Allergy/AdvReac Type Severity Reaction Status Date / Time No Known Allergies Allergy Verified 05/29/20 22:55 Active Medications: Current Medications Generic Name Dose Route Start Last Admin Trade Name Freq PRN Reason Stop Dose Admin Ketorolac Tromethamine 15 mg 01/16/21 08:00 01/16/21 08:29 Ketorolac Tromethamine 15 Mg/Ml Vial IV 15 mg Q6H JAKI Administration Home Medications Medication Instructions Recorded Confirmed Last Taken Type No Known Home Meds 07/23/20 07/23/20 Unknown History REFRESH TECHNICIAN Physical Exam Vitals Vital signs: Temp Pulse Resp BP Pulse Ox 98.8 F 56 22 H 151/94 H 99 01/16/21 08:26 01/16/21 08:26 08/01/21 08:26 01/16/21 08:47 01/16/21 08:26 Body Mass Index 30.3 Constitutional General Appearance: Healthy appearing, Well-nourished and Well-developed Psychiatric Mood and Affect: active and alert, normal mood and normal affect Skin Appearance: No rashes and No lesions Lungs Respiratory Effort: No intercostal retractions Auscultation: Clear to auscultation Cardiovascular Auscultation: RRR Abdomen Auscultation/Inspection/Palpation: Normal bowel sounds, Soft, Non-distended and No tenderness Female Genitalia (Pelvic) Exam: Deferred REFRESH TECHNICIAN - Results Labs CBC & Chem 7: 01/16/21 07:39 01/16/21 07:38 Labs: Short CBC 01/16/21 Range/Units 07:39 WBC 9.0 (4.8-10.8) X10*3/uL Hgb 9.1 L D (12.0-16.0) g/dl Hct 29.2 L (37-47) % Plt Count 360 D (160-400) X10*3/uL BMP 01/16/21 07:38 Sodium 144 Potassium 3.9 Chloride 108 Carbon Dioxide 25 BUN 9 Creatinine 0.65 Calcium 9.0 Liver Function 01/16/21 Range/Units 07:38 Total Bilirubin 0.3 (0.0-1.0) mg/dL Direct Bilirubin 0.2 (0.0-0.5) mg/dL AST 26 (5-31) U/L ALT 36 H (0-31) U/L Alkaline Phosphatase 248 H (39-117) U/L Albumin 3.4 L (3.5-5.0) g/dL Assessment and Plan (1) Preeclampsia in period: Status: Acute Although AST is not double the normal range but given her elevated blood pressure, clinical picture is consistent with preeclampsia with severe features. Recommended to start the patient on magnesium sulfate 4 g loading dose with 2 g an hour and transfer patient to [place]. If the blood pressure is in the severe range equal above 160 and/or above 110, initiate emergent hypertension treatment protocol Regarding chest pain, recommended CT to rule out PE. Discussed the case with Dr. Valdes on the phone. I did not see or exam the patient
[2021-01-16] MEDS: Labetalol HCL 100 MG/20 ML VIAL 10 MG IVPUSH (09:13)
--- NOTE | 2021-01-16 09:13 | PC.NURSE ---
@0912 DR LUU REQUEST CALL OUT TO [facility] PT TX LINE REGAN ANSWERS, TAKES PT INFO AND ASKS TO SPEAK WITH DR JUS LUU TAKES OVER CALL RIGHT AWAY AND IS SPEAKING WITH REGAN @ THIS TIME
--- NOTE | 2021-01-16 10:06 | PC.NURSE ---
@ 10:06 CALL PLACED TO [facility] ABOUT A CALL BACK FOR DR LUU. REGAN ANSWERS AND STATES SHE WILL PUT ANOTHER CALL OUT WE HAVE NOT HEARD FROM ANY ONE YET
[2021-01-16] MEDS: iohexoL 350 MG/ML 100 ML INFUS..BTL IV (10:10)
--- NOTE | 2021-01-16 10:26 | PC.NURSE ---
CALL RECEIVED FROM ELVIA OF [facility] PT TX LINE @ THIS TIME, DR LUU TAKES OVER CALL AND SPEAKS WITH [facility] @ THIS TIME
--- NOTE | 2021-01-16 10:40 | PC.NURSE ---
@10:39AM RETURN CALL FROM CHARLY OF [facility] PT PLACEMENT WITH TRANSFER INFO ACCEPTING MD IS DR MELGAR ROOM ASSIGNMENT IS [place] [address], ROOM 1735 RN TO RN SHOULD BE CALL ED TO [phone] WITH A REQUEST TO FAX DEMOGRAPHICS TO [phone]
[2021-01-16 10:46] LABS: Glucose Urine UA NEG (NEG); Leukocyte Esterase Urine NEG (NEG); Nitrite Urine NEG (NEG); PH 6.5 (5.0-8.0); Specific Gravity - Urine <= 1.005 (1.005-1.025); UACC Culture Trigger NO; Urine Blood 3+ (NEG); Urine Ketones NEG (NEG); Urine Protein NEG (NEG-TRACE)
--- NOTE | 2021-01-16 10:55 | PC.NURSE ---
Report to Catherine HEARN at [facility].
[2021-01-16 10:56] LABS: Lipase 24 U/L (8-78)
--- NOTE | 2021-01-16 11:05 | PC.NURSE ---
@10:52AM [facility] CALLED FOR ALS TRANSPORT FOR THIS PT TO [facility] [address]
[2021-01-16 11:09] LABS: Appearance Urine CLEAR; Color Urine COLORLESS; RBC Urine 0-2 /HPF (0); WBC Urine 0 /HPF (0-4)
== END 2021-01-16 11:32 | disposition short-term general hospital (02) ==
PROVIDERS: Emergency Provider Student in an Organized Health Care Education/Training Program; PCP Internal Medicine
DX: O14.95 Unspecified pre-eclampsia, complicating the puerperium (principal); F41.1 Generalized anxiety disorder; F43.0 Acute stress reaction; F41.0 Panic disorder [episodic paroxysmal anxiety]; R07.9 Chest pain, unspecified
CPT/HCPCS: 36415; 71046; 71275; 80048; 80076; 81001; 81003; 83690; 84484; 85007; 85025; 85027; 85379; 85610; 93005; 96361; 96365; 96375; 99285; 99291; J1885; J2060; J3475; Q9967

== ENCOUNTER 2021-04-04 08:35 | Emergency (ER) | payer MEDICAID, SELFPAY ==
[2021-04-04 09:04] VITALS: BP 120/74; PULSE 100; RESP 16; TEMP 37.3; O2SAT 99; BMI 24.5
[2021-04-04] MEDS: Acetaminophen 325 MG TABLET 650 MG PO (09:09)
--- NOTE | 2021-04-04 10:33 | ED.GENADULT ---
HPI - General Adult General Chief complaint: General Medical Stated complaint: sore throat, cough, ?fever Time Seen by Provider: 04/04/21 10:22 Source: patient Mode of arrival: ambulatory Limitations: no limitations History of Present Illness HPI narrative: 25-year-old female with a past medical history of anxiety here with complaints of sore throat, nasal congestion, subjective fevers, cough for 2-3 days. Patient tells me she had a COVID test yesterday which was negative. Her daughter is home at sick with the same symptoms. She is currently . No shortness of breath, chest pain, leg swelling, leg pain. She did have 2 episodes of vomiting this morning. No abdominal pain or diarrhea Related Data Previous Rx's Medication Instructions Recorded ondansetron 4 mg disintegrating 4 mg PO Q6H PRN #10 tab 04/04/21 tablet Allergies Allergy/AdvReac Type Severity Reaction Status Date / Time No Known Allergies Allergy Verified 05/29/20 22:55 Review of Systems Review of Systems: Yes all other systems are reviewed and are negative Constitutional: Constitutional: Reports no additional constitutional complaints, Denies body ache(s), Denies chills, Reports fever(s) (Subjective), Denies headache(s) and Denies weakness Eyes: Eyes: Reports no additional eye complaints and Denies change in vision ENT: Reports system reviewed and no additional complaints, except as documented, Denies dizziness, Denies headache(s), Reports nasal congestion, Denies nasal discharge, Denies neck pain and Reports sore throat Cardiovascular: Cardiovascular: Reports no additional cardiovascular complaints, Denies chest pain, Denies leg edema and Denies dyspnea Respiratory: Respiratory: Reports no additional respiratory complaints, Reports cough and Denies dyspnea Gastrointestinal: Gastrointestinal: Reports no additional gastrointestinal complaints, Denies abdominal pain, Denies diarrhea, Reports nausea and Reports vomiting Genitourinary: Genitourinary: Reports no additional female genitourinary complaints and Denies urinary incontinence Musculoskeletal: Musculoskeletal: Reports no additional musculoskeletal complaints, Denies back pain, Denies arthralgias, Denies joint swelling, Denies neck pain, Denies numbness and Denies tingling Integumentary/Breasts: Skin/Breast: Reports system reviewed and no additional complaints, except as docu and Denies rash Neurologic: Reports system reviewed and no additional complaints, except as documented, Denies Abnormal speech present, Denies dizziness, Denies headache(s), Denies numbness, Denies tingling and Denies weakness PMFSH Past Medical History Attestation statement: The following information was validated with the patient. Source: old records reviewed and nursing notes reviewed Medical History Generalized anxiety disorder with panic attacks History of trauma No known health problems Surgical History History of cholecystectomy Family History Family History Mother No problems noted. Sister No problems noted. Brother No problems noted. Father Unknown family medical history Social History Social History Alcohol intake: never Advance Directives: No Patient : No Physical Exam Vital Signs: Vital Signs: Last Vital Signs Temp 99.2 F 04/04/21 09:04 Pulse 100 04/04/21 09:04 Resp 16 04/04/21 09:04 BP 120/74 04/04/21 09:04 Pulse Ox 99 04/04/21 09:04 Body Mass Index 24.5 Const: General: cooperative, healthy appearing, comfortable and no acute distress Orientation/consciousness: patient oriented x3 Limitations: no limitations HENMT: Head: Yes normal to inspection Ears: hearing grossly normal bilaterally and TM's normal bilaterally General nose exam: Normal external nose present Face and sinus: Yes normal facial exam Mouth: Normal oral and palatal mucosa present Throat: Yes posterior oropharynx normal, Yes tonsils normal and Yes uvula midline Eyes: General: appearance normal, both eyes and all related structures Pupils: Equal, round and reactive pupils present Neck: Neck: Yes normal visual inspection, Yes full ROM, Yes no lymphadenopathy and Yes no meningeal signs Chest: Chest palpation & inspection: normal inspection of the chest Resp: Effort & Inspection: normal respiratory effort Auscultation: clear to auscultation bilaterally Cardio: Rate: regular rate Rhythm: regular rhythm Peripheral pulses: Peripheral pulses 2+ throughout GI: Inspection: Yes normal to inspection Palpation (GI): Soft to palpation and nontender Auscultation: normal bowel sounds Back/Spine/Pelvis: Thoracic/Lumbar Spine: thoracic and lumbar spine normal to inspection Skin: General skin exam: no rashes or lesions noted Neuro: General: patient oriented x3, no meningeal signs, no focal motor deficits and normal sensation to monofilament Cranial nerves: Yes Equal, round and reactive pupils present Cognition (Neuro): normal cognition Speech: No Abnormal speech present Gait exam (Neuro): Normal gait present Motor exam (neuro): 5/5 motor strength present throughout Extrem: General: Yes normal to inspection, Yes no pedal edema and Yes no calf tenderness Course Course Course Narrative: 25-year-old female here with viral symptoms for 2-3 days. Tested negative for COVID yesterday. Exam is benign. She did vomit twice this morning but has no focal abdominal pain. Will give sublingual Zofran. Check rapid strep and RSV/COVID/flu swab. 1215-COVID/FLU/RSV swab negative. Rapid strep negative. Exam not c/w with strep pharyngitis. Patient tolerating PO. Likely viral syndrome . Reviewed worrisome signs/symptoms with patient and when to return to ED. Comfortable with discharge home. Medical Decision Making Medical Records Medical records reviewed: Yes I reviewed the patient's medical records. Lab Data Lab results reviewed: Yes I reviewed the patient's lab results. Labs: Lab Results 04/04/21 04/04/21 Range/Units 10:47 10:47 Coronavirus (PCR) NEGATIVE (Negative) Influenza Type A (PCR) NEGATIVE (Negative) Influenza Type B (PCR) NEGATIVE (Negative) RSV RNA Qual (PCR) NEGATIVE (Negative) S. pyogenes GrpA PATO Negative (Negative) Discharge Plan Discharge Clinical Impression: Acute viral syndrome Patient Disposition: Home, Self-Care Instructions: Viral Syndrome (ED) Additional Instructions: COVID and strep tests are negative Alternate Motrin and Tylenol Increase fluids, rest Prescriptions: New ondansetron 4 mg tablet,disintegrating 4 mg PO Q6H PRN (Reason: nausea and vomiting) Qty: 10 RF: 0 Referrals: Randa Charles MD [Primary Care Provider] - 2 days Stand Alone Forms: Work/School Release
[2021-04-04 11:01] LABS: IDNOW Serial# 08D9AD1C; Strep A Nucleic Acid Negative (Negative)
[2021-04-04] MEDS: Ondansetron ODT 4 MG TAB.RAPDIS TRANSLINGU (11:10)
[2021-04-04 11:57] LABS: Influenza A PCR NEGATIVE (Negative); Influenza B PCR NEGATIVE (Negative); Resp Syncy Virus RNA Qual PCR NEGATIVE (Negative); SARS COV2 PCR INHOUSE NEGATIVE (Negative)
== END 2021-04-04 12:20 | disposition home or self-care (01) ==
PROVIDERS: Nurse Practitioner Family; Emergency Provider Student in an Organized Health Care Education/Training Program; PCP Internal Medicine
DX: B34.9 Viral infection, unspecified (principal); R05.9 Cough, unspecified; R50.9 Fever, unspecified; Z20.822 Contact with and (suspected) exposure to COVID-19; Z79.899 Other long term (current) drug therapy
CPT/HCPCS: 0241U; 36415; 87651; 99283; 99284

== ENCOUNTER 2021-04-17 06:09 | Emergency (ER) | payer MEDICAID, SELFPAY ==
[2021-04-17 06:27] VITALS: BP 118/90; PULSE 102; RESP 18; TEMP 36.4; O2SAT 98; BMI 21.9
--- NOTE | 2021-04-17 06:47 | ED.FEMALEGU ---
HPI - Female Genitourinary General Chief complaint: Urogenital-Female Stated complaint: Uro-genital female Time Seen by Provider: 04/17/21 06:47 Source: patient Mode of arrival: ambulatory Limitations: no limitations History of Present Illness HPI Narrative: Vaginal pain, dysuria. Patient denies current . No vaginal discharge. Patient has a history of herpes. No current outbreak. No other STIs MD elicited complaint: dysuria Pertinent past history: other (herpes) Onset (ago): day(s) (2) Location of symptoms: vaginal Severity: mild Quality of pain: burning Consistency: constant Urinary symptoms: Dysuria Related Data Previous Rx's Medication Instructions Recorded ondansetron 4 mg disintegrating 4 mg PO Q6H PRN #10 tab 04/04/21 tablet nitrofurantoin 100 mg PO BID #10 cap 04/17/21 monohydrate/macrocrystals 100 mg capsule (Macrobid) phenazopyridine 100 mg tablet 100 mg PO TID PRN #6 tab 04/17/21 (Pyridium) Allergies Allergy/AdvReac Type Severity Reaction Status Date / Time No Known Allergies Allergy Verified 05/29/20 22:55 Review of Systems Neurologic: Denies Sensory deficit (Neuro) [facility] Past Medical History Medical History Generalized anxiety disorder with panic attacks History of trauma No known health problems Surgical History History of cholecystectomy Family History Family History Mother No problems noted. Sister No problems noted. Brother No problems noted. Father Unknown family medical history Social History Social History Alcohol intake: never Patient Tobacco Use Status: Tobacco use Unknown Use of substances other than those prescribed or required for medical reasons: No Advance Directives: No Advance Directives Information Provided: Yes Patient : No Physical Exam Vital Signs: Vital Signs: Last Vital Signs Temp 97.6 F 04/17/21 06:27 Pulse 102 H 04/17/21 06:27 Resp 18 04/17/21 06:27 BP 118/90 H 04/17/21 06:27 Pulse Ox 98 10/31/21 06:27 Body Mass Index 21.9 Const: General: healthy appearing Nutritional Appearance: average body habitus Orientation/consciousness: oriented to person and patient oriented x3 Limitations: no limitations HENMT: Head: Yes normal to inspection Ears: external ears normal General nose exam: Normal external nose present Mouth: Normal oral and palatal mucosa present and oropharynx normal Throat: Yes posterior oropharynx normal Eyes: General: appearance normal, both eyes and all related structures Neck: Other: supple Neck: Yes normal visual inspection Chest: Chest palpation & inspection: normal inspection of the chest Resp: Auscultation: clear to auscultation bilaterally Cardio: Jugular venous distension: no JVD Rate: regular rate Rhythm: regular rhythm Heart sounds: S1 normal heart sound present and S2 normal heart sound present GI: Inspection: Yes normal to inspection Palpation (GI): Soft to palpation, nontender and No hepatosplenomegaly present Auscultation: normal bowel sounds : General: Yes no CVA tenderness Back/Spine/Pelvis: Back: no CVA tenderness Skin: General skin exam: no rashes or lesions noted Neuro: General: oriented to person and patient oriented x3 Cranial nerves: Yes CN's II-XII intact bilaterally Motor exam (neuro): 5/5 motor strength present throughout Sensory Exam: No Sensory deficit (Neuro) Extrem: General: Yes normal to inspection Psych: Appearance: grossly normal Course Reevaluation(s) Reevaluation #1: patient with soft abdomen, no CVAT, will dc on macrobid Time: 08:12 MDM - Female Genitourinary Lab Data Labs: Lab Results 04/17/21 04/17/21 Range/Units 07:02 07:02 Urine Color YELLOW Urine Appearance HAZY Urine pH 6.0 (5.0-8.0) Ur Specific [place] 1.025 (1.005-1.025) Urine Protein 2+ H (NEG-TRACE) MG/DL Urine Glucose (UA) NEG (NEG) MG/DL Urine Ketones NEG (NEG) MG/DL Urine Blood 1+ H (NEG) Urine Nitrite NEG (NEG) Ur Leukocyte Esterase 1+ H (NEG) Urine RBC 0-2 (0) /HPF Urine WBC 76-150 H (0-4) /HPF Ur Squamous Epith Cells 2+ /LPF Amorphous Sediment TRACE /LPF Urine Bacteria 1+ /LPF Urine Mucus 1+ /LPF Urine Test NEGATIVE (NEGATIVE) Discharge Plan Discharge Clinical Impression: Urinary tract infection Qualifiers: Urinary tract infection type: acute cystitis Hematuria presence: without hematuria Qualified Code(s): N30.00 - Acute cystitis without hematuria Patient Disposition: Home, Self-Care Instructions: Urinary Tract Infection in Women (ED) Prescriptions: New nitrofurantoin monohyd/m-cryst [Macrobid] 100 mg capsule 100 mg PO BID Qty: 10 RF: 0 phenazopyridine [Pyridium] 100 mg tablet 100 mg PO TID PRN (Reason: dysuria) Qty: 6 RF: 0 No Action ondansetron 4 mg tablet,disintegrating 4 mg PO Q6H PRN (Reason: nausea and vomiting) Qty: 10 RF: 0 Referrals: [facility] [Primary Care Provider] - 1 week
[2021-04-17] MEDS: Ketorolac Tromethamine 60 MG/2 ML VIAL IM (07:06)
[2021-04-17 07:10] LABS: Appearance Urine HAZY; Color Urine YELLOW; Glucose Urine UA NEG (NEG); Leukocyte Esterase Urine 1+ (NEG); Nitrite Urine NEG (NEG); Specific Gravity - Urine 1.025 (1.005-1.025); UACC Culture Trigger YES; Urine Blood 1+ (NEG); Urine Ketones NEG (NEG); Urine Protein 2+ MG/DL (NEG-TRACE)
[2021-04-17 07:19] LABS: UPreg QC Valid YES; Urine Pregnancy NEGATIVE (NEGATIVE)
[2021-04-17 07:27] LABS: Amorphous Sediment Urine TRACE /LPF; Bacteria Urine 1+ /LPF; Mucus Urine 1+ /LPF; RBC Urine 0-2 /HPF (0); Squamous Epithelial Cell Urine 2+ /LPF
[2021-04-17 08:30] VITALS: BP 101/63; PULSE 77; RESP 13; TEMP 36.6; O2SAT 98
[2021-04-17] MEDS: Phenazopyridine HCL 100 MG TABLET PO (08:55)
[2021-04-17] MEDS: Nitrofurantoin Monohyd/M-Cryst 100 MG CAPSULE PO (08:56)
[2021-04-17 16:54] LABS: CT PCR NOT DETECTED (Not Detect.); NG PCR NOT DETECTED (Not Detect.)
== END 2021-04-17 08:59 | disposition home or self-care (01) ==
PROVIDERS: Emergency Provider Emergency Medicine
DX: N30.00 Acute cystitis without hematuria (principal)
CPT/HCPCS: 81001; 81025; 87086; 87088; 87186; 87491; 87591; 96372; 99284; J1885

== ENCOUNTER 2021-11-27 18:47 | Emergency (ER) | payer MEDICAID, SELFPAY ==
[2021-11-27 19:21] VITALS: BP 131/73; PULSE 75; RESP 22; TEMP 36.8; O2SAT 100; BMI 22.6
[2021-11-27 19:33] LABS: MANUAL DIFF FLAG NO
[2021-11-27 19:37] LABS: Basophils Percent Auto 0.4 % (0-2); Eosinophils Absolute Auto 0.3 X10*3/uL (0.0-0.4); Eosinophils Percent Auto 4.5 % (0-4); Hematocrit 38.1 % (37.0-47.0); Hemoglobin 12.5 g/dl (12.0-16.0); Imm Gran Abs Auto 0.01 X10*3/uL (0.00-0.03); Imm Gran Pct Auto 0.1 % (0.0-0.4); Lymphocytes Absolute Auto 1.7 X10*3/uL (1.2-4.9); Lymphocytes Percent Auto 22.7 % (20-40); Mean Corpuscular HGB Conc 32.8 g/dl (31.0-35.0); Mean Corpuscular Volume 82.3 fL (80.0-98.0); Mean Platelet Volume 11.3 fL (9.4-12.3); Monocytes Absolute Auto 0.7 X10*3/uL (0.1-1.2); Monocytes Percent Auto 9.3 % (2-11); Neutrophils Absolute Auto 4.7 x10*3/uL (2.0-8.3); Platelet Count 219 X10*3/uL (160-400); Red Blood Count 4.63 X10*6/uL (4.20-5.50); Red Cell Distribution Width 13.9 % (11.0-16.0); White Blood Count 7.4 X10*3/uL (4.8-10.8)
[2021-11-27 19:51] LABS: Alanine Aminotransferase 31 U/L (0-31); Albumin Level 4.7 g/dL (3.5-5.0); Alkaline Phosphatase 59 U/L (39-117); Anion Gap 12 (12-20); Aspartate Amino Transferase 23 U/L (5-31); Bilirubin Total 0.5 mg/dL (0.0-1.0); Blood Urea Nitrogen 14 mg/dL (9-16); Carbon Dioxide 27 mmol/L (22-29); Chloride 105 mmol/L (96-108); Creatinine Clr Calc Pharmacy 85.7; Estimated Glomerular Filt Rate > 60; Glucose Random 74 mg/dL (60-115); Potassium 4.1 mmol/L (3.3-5.1); Sodium 140 mmol/L (135-145)
--- NOTE | 2021-11-27 22:07 | ED.FEMALEGU ---
HPI - Female Genitourinary General Chief complaint: Urogenital-Female Stated complaint: lower back pain Time Seen by Provider: 11/27/21 21:58 Source: patient Limitations: no limitations History of Present Illness HPI Narrative: This is a 26-year-old female who complains of pain in her mid lower back came on suddenly today when she was braiding her daughter's hair. Patient notes a history of kidney problems, notably lesions on her kidneys. She denies kidney stones per se, told that she had some imaging which showed some spots on her kidneys which her doctor had told her were due to prior bacterial infection. Patient denies any dysuria or urinary frequency. Pain is in the midline. She denies any hematuria. Pain is worse with walking or movement. She does have history of scoliosis. She denies any abdominal pain, nausea vomiting, sweats, fever Related Data Previous Rx's Medication Instructions Recorded ondansetron 4 mg disintegrating 4 mg PO Q6H PRN nausea and 04/04/21 tablet vomiting #10 tabs nitrofurantoin 100 mg PO BID #10 caps 04/17/21 monohydrate/macrocrystals 100 mg capsule (Macrobid) phenazopyridine 100 mg tablet 100 mg PO TID PRN dysuria 6 doses 04/17/21 (Pyridium) #6 tabs cyclobenzaprine 10 mg tablet 10 mg PO TID PRN muscle spasm #20 11/27/21 tabs ibuprofen 600 mg tablet 600 mg PO Q6H PRN pain #30 tabs 11/27/21 Allergies Allergy/AdvReac Type Severity Reaction Status Date / Time No Known Allergies Allergy Verified 05/29/20 22:55 Review of Systems Review of Systems: Yes all other systems are reviewed and are negative Constitutional: Constitutional: Reports as per HPI and Denies fever(s) Eyes: Eyes: Reports as per HPI and Reports no additional eye complaints ENT: Reports system reviewed and no additional complaints, except as documented, Reports as per HPI, Denies nasal congestion, Denies nasal discharge and Denies sore throat Cardiovascular: Cardiovascular: Reports as per HPI, Denies chest pain and Denies dyspnea Respiratory: Respiratory: Reports as per HPI, Denies cough and Denies dyspnea Gastrointestinal: Gastrointestinal: Reports as per HPI, Denies abdominal pain, Denies diarrhea and Denies vomiting Genitourinary: Genitourinary: Reports as per HPI, Denies hematuria, Denies urinary frequency and Denies dysuria Musculoskeletal: Musculoskeletal: Reports no additional musculoskeletal complaints, Reports back pain and Denies numbness Integumentary/Breasts: Skin/Breast: Reports as per HPI and Denies rash Neurologic: Reports as per HPI, Denies focal weakness and Denies numbness Psychiatric: Psychiatric: Reports no additional psychiatric complaints and Reports as per HPI Endocrine: Endocrine: Reports no additional endocrine complaints and Reports as per HPI Hematologic/Lymphatic: Hematologic/Lymphatic: Reports no additional hematologic/lymphatic complaints, Reports as per HPI and Reports other (No peripheral edema) [facility] Past Medical History Medical History Generalized anxiety disorder with panic attacks History of trauma No known health problems Surgical History History of cholecystectomy Family History Family History Mother No problems noted. Sister No problems noted. Brother No problems noted. Father Unknown family medical history Social History Social History Alcohol intake: never Patient Tobacco Use Status: Tobacco use Unknown Advance Directives: No Advance Directives Information Provided: No Physical Exam Vital Signs: Vital Signs: Last Vital Signs Temp 98.1 F 11/27/21 23:19 Pulse 70 11/27/21 23:19 Resp 16 11/27/21 23:19 BP 129/87 11/27/21 23:19 Pulse Ox 100 11/27/21 23:19 O2 Del Method 11/27/21 23:19 BMI result Body Mass Index 22.6 Const: Other: PERRLA Conj [place] Mucous membranes moist Throat clear Neck supple Lungs CTA Heart RRR no murmurs rubs or gallops Lumbar spine tender midline, no CVA tenderness. Straight leg test elicits minor back pain, neurovascular exam of legs normal Abd soft, non tender, non distended Extremities no pitting edema Neuro alert and oriented x 3, non focal MDM - Female Genitourinary MDM Narrative Medical decision making narrative: Patient with acute onset low back pain, does have a history of scoliosis. Patient had some tenderness over her spine. No UTI symptoms and urinalysis is negative. Pain pattern more consistent with musculoskeletal pain than renal colic. Patient improvement with Toradol and Valium. Lab Data Result diagrams: 11/27/21 19:27 11/27/21 19:27 Labs: Lab Results 11/27/21 11/27/21 11/27/21 Range/Units 19:27 19:27 23:23 WBC 7.4 (4.8-10.8) X10*3/uL RBC 4.63 (4.20-5.50) X10*6/uL Hgb 12.5 (12.0-16.0) g/dl Hct 38.1 (37.0-47.0) % MCV 82.3 (80.0-98.0) fL MCH 27.0 (27.0-33.0) pg MCHC 32.8 (31.0-35.0) g/dl RDW 13.9 (11.0-16.0) % Plt Count 219 (160-400) X10*3/uL MPV 11.3 (9.4-12.3) fL Immature Gran % (Auto) 0.1 (0.0-0.4) % Neut % (Auto) 63.0 (45-73) % Lymph % (Auto) 22.7 (20-40) % [place] % (Auto) 9.3 (2-11) % Eos % (Auto) 4.5 H (0-4) % Baso % (Auto) 0.4 (0-2) % Lymph # (Auto) 1.7 (1.2-4.9) X10*3/uL [place] # (Auto) 0.7 (0.1-1.2) X10*3/uL Eos # (Auto) 0.3 (0.0-0.4) X10*3/uL Baso # (Auto) 0.0 (0.0-0.2) X10*3/uL Abs Immat Gran (auto) 0.01 (0.00-0.03) X10*3/uL Absolute Neuts (auto) 4.7 (2.0-8.3) x10*3/uL Absolute Nucleated RBC 0.000 (0.0-0.012) X10*3/uL Nucleated RBC % (auto) 0.0 (0.0-0.2) /100WBC Sodium 140 (135-145) mmol/L Potassium 4.1 (3.3-5.1) mmol/L Chloride 105 (96-108) mmol/L Carbon Dioxide 27 (22-29) mmol/L Anion Gap 12 (12-20) BUN 14 (9-16) mg/dL Creatinine 0.80 (0.5-1.4) mg/dL Estim Creat Clear Calc 85.7 Estimated GFR > 60 Random Glucose 74 (60-115) mg/dL Calcium 10.0 D (8.4-10.2) mg/dL Total Bilirubin 0.5 (0.0-1.0) mg/dL AST 23 (5-31) U/L ALT 31 (0-31) U/L Alkaline Phosphatase 59 D (39-117) U/L Total Protein 8.0 D (6.5-8.0) g/dL Albumin 4.7 D (3.5-5.0) g/dL Urine Color YELLOW Urine Appearance CLEAR Urine pH 6.0 (5.0-8.0) Ur Specific [place] 1.025 (1.005-1.025) Urine Protein NEG (NEG-TRACE) MG/DL Urine Glucose (UA) NEG (NEG) MG/DL Urine Ketones NEG (NEG) MG/DL Urine Blood NEG (NEG) Urine Nitrite NEG (NEG) Ur Leukocyte Esterase NEG (NEG) Urine Test (NEGATIVE) 11/27/21 Range/Units 23:23 WBC (4.8-10.8) X10*3/uL RBC (4.20-5.50) X10*6/uL Hgb (12.0-16.0) g/dl Hct (37.0-47.0) % MCV (80.0-98.0) fL MCH (27.0-33.0) pg MCHC (31.0-35.0) g/dl RDW (11.0-16.0) % Plt Count (160-400) X10*3/uL MPV (9.4-12.3) fL Immature Gran % (Auto) (0.0-0.4) % Neut % (Auto) (45-73) % Lymph % (Auto) (20-40) % [place] % (Auto) (2-11) % Eos % (Auto) (0-4) % Baso % (Auto) (0-2) % Lymph # (Auto) (1.2-4.9) X10*3/uL [place] # (Auto) (0.1-1.2) X10*3/uL Eos # (Auto) (0.0-0.4) X10*3/uL Baso # (Auto) (0.0-0.2) X10*3/uL Abs Immat Gran (auto) (0.00-0.03) X10*3/uL Absolute Neuts (auto) (2.0-8.3) x10*3/uL Absolute Nucleated RBC (0.0-0.012) X10*3/uL Nucleated RBC % (auto) (0.0-0.2) /100WBC Sodium (135-145) mmol/L Potassium (3.3-5.1) mmol/L Chloride (96-108) mmol/L Carbon Dioxide (22-29) mmol/L Anion Gap (12-20) BUN (9-16) mg/dL Creatinine (0.5-1.4) mg/dL Estim Creat Clear Calc Estimated GFR Random Glucose (60-115) mg/dL Calcium (8.4-10.2) mg/dL Total Bilirubin (0.0-1.0) mg/dL AST (5-31) U/L ALT (0-31) U/L Alkaline Phosphatase (39-117) U/L Total Protein (6.5-8.0) g/dL Albumin (3.5-5.0) g/dL Urine Color Urine Appearance Urine pH (5.0-8.0) Ur Specific [place] (1.005-1.025) Urine Protein (NEG-TRACE) MG/DL Urine Glucose (UA) (NEG) MG/DL Urine Ketones (NEG) MG/DL Urine Blood (NEG) Urine Nitrite (NEG) Ur Leukocyte Esterase (NEG) Urine Test NEGATIVE (NEGATIVE) Discharge Plan Discharge Clinical Impression: Low back pain Patient Disposition: Home, Self-Care Instructions: Acute Low Back Pain (ED) Additional Instructions: Take the medicines as prescribed. You may also benefit from lidocaine patches, available at the pharmacy. Follow up with primary care physician-if you have ongoing back pain you may need referral for physical therapy. Prescriptions: New ibuprofen 600 mg tablet 600 mg PO Q6H PRN (Reason: pain) Qty: 30 0RF cyclobenzaprine 10 mg tablet 10 mg PO TID PRN (Reason: muscle spasm) Qty: 20 0RF No Action nitrofurantoin monohyd/m-cryst [Macrobid] 100 mg capsule 100 mg PO BID Qty: 10 0RF Rx Instructions: must administer with a meal/food phenazopyridine [Pyridium] 100 mg tablet 100 mg PO TID PRN (Reason: dysuria) Qty: 6 0RF ondansetron 4 mg tablet,disintegrating 4 mg PO Q6H PRN (Reason: nausea and vomiting) Qty: 10 0RF Interventions: ED Discharge Assessment Last Done: 11/28/21 00:15 Discharge Date/Time: 11/28/21 00:16
[2021-11-27] MEDS: diazePAM 2 MG TABLET 4 MG PO (23:03)
[2021-11-27] MEDS: Ketorolac Tromethamine 30 MG/ML VIAL IM (23:03)
[2021-11-27 23:19] VITALS: BP 129/87; PULSE 70; RESP 16; TEMP 36.7; O2SAT 100
--- NOTE | 2021-11-27 23:20 | PC.NURSE ---
report received from NADIYA Ghotra. pt is alert and oriented. resting in bed. report that the pain is much better
[2021-11-27 23:37] LABS: Appearance Urine CLEAR; Color Urine YELLOW; Glucose Urine UA NEG (NEG); Leukocyte Esterase Urine NEG (NEG); Nitrite Urine NEG (NEG); Specific Gravity - Urine 1.025 (1.005-1.025); Urine Blood NEG (NEG); Urine Ketones NEG (NEG); Urine Protein NEG (NEG-TRACE)
[2021-11-27 23:40] LABS: UPreg QC Valid YES; Urine Pregnancy NEGATIVE (NEGATIVE)
== END 2021-11-28 00:16 | disposition home or self-care (01) ==
PROVIDERS: Emergency Provider Emergency Medicine
DX: M54.50 Low back pain, unspecified (principal); M41.9 Scoliosis, unspecified
CPT/HCPCS: 36415; 80053; 81003; 81025; 85025; 96372; 99284; J1885

== ENCOUNTER 2023-01-25 14:28 | Outpatient (REF) | payer MEDICAID, SELFPAY ==
[2023-01-28 04:49] LABS: TS Negative Control Passed; TS Panel A 0; TS Panel B 1; TS Positive Control Passed; TSpotTB Negative (Negative)
== END 2023-01-25 14:29 | disposition home or self-care (01) ==
LOC: HO.HHCL 14:28
PROVIDERS: Visit Provider Registered Nurse
DX: Z11.1 Encounter for screening for respiratory tuberculosis (principal)
CPT/HCPCS: 36415; 86481

== ENCOUNTER 2023-02-02 19:52 | Outpatient (REF) | payer MEDICAID, SELFPAY ==
[2023-02-03 04:03] LABS: CT PCR NOT DETECTED (Not Detect.); NG PCR NOT DETECTED (Not Detect.)
[2023-02-03 11:48] LABS: BV Int Neg Control Negative (Negative); BV Int Pos Control Positive (Positive)
== END 2023-02-02 19:53 | disposition home or self-care (01) ==
LOC: HO.HHCLNP 19:52
PROVIDERS: Visit Provider Student in an Organized Health Care Education/Training Program
DX: N89.8 Other specified noninflammatory disorders of vagina (principal)
CPT/HCPCS: 0353U; 87480; 87510; 87660

== ENCOUNTER 2023-02-09 14:36 | Emergency (ER) | payer MEDICAID, SELFPAY ==
--- NOTE | ~2023-02-09 | CT_ITS ---
EXAMINATION: CT ABDOMEN AND PELVIS WITH CONTRAST CLINICAL INFORMATION: Back pain. Fever. COMPARISON: MR abdomen 11/01/2015 right upper quadrant ultrasound abdomen 10/30/2015 TECHNIQUE: Multidetector volumetric images were obtained from the superior aspect of the liver through the pubic symphysis following administration 85 mL of Omnipaque 350 intravenous contrast. Sagittal and coronal reformatted images were obtained on the technologist's workstation. Oral contrast: No This CT examination was performed using dose optimization techniques as appropriate, variously including the following: *Automated exposure control *Adjustment of mA and/or kV according to patient size (this includes techniques or standardized protocols for targeted exams where dose is matched to indication/reason for exam; i.e. extremities or head) *Use of iterative reconstruction technique DLP: 447 mGy-cm FINDINGS: LUNG BASES: The visualized lung bases are unremarkable. LIVER, GALLBLADDER, AND BILIARY TREE: The liver is normal in size, shape, and attenuation. No focal hepatic lesion or biliary ductal dilatation is present. Status post cholecystectomy PANCREAS: Unremarkable. SPLEEN: Unremarkable. ADRENAL GLANDS: Unremarkable. KIDNEYS AND URETERS: The kidneys are normal in size, shape, and attenuation. No hydronephrosis, hydroureter, or calculi seen. No perinephric stranding. BLADDER: Unremarkable. GASTROINTESTINAL TRACT: The small and large bowel are unremarkable. The appendix is unremarkable. ABDOMINAL WALL: No significant hernia is appreciated. LYMPH NODES: Normal. VASCULAR: Unremarkable. PELVIC VISCERA: Uterus is anteverted. No adnexal abnormality. OSSEOUS STRUCTURES: Unremarkable. CT/CT abdomen pelvis w IV con IMPRESSION: No significant abnormality. Fleischner guidelines were followed.
--- NOTE | ~2023-02-09 | US_ITS ---
EXAMINATION: US PELVIS CLINICAL INFORMATION: Pelvic and back pain, fever. Currently on menstrual period. COMPARISON: CT abdomen/pelvis performed earlier today. TECHNIQUE: Ultrasound of the pelvis is performed using both transabdominal and transvaginal transducers along with Doppler. Transvaginal imaging is performed due to inadequate visualization transabdominally. FINDINGS: The uterus is anteverted measuring 9.9 x 2.9 x 3.9 cm. No uterine lesion. The endometrium measures 0.5 cm without discrete focal abnormality. Ovaries are normal in size and morphology with preserved flow on color and spectral Doppler at the moment of this examination. The right ovary measures 3.6 x 1.6 x 2.2 cm, 6.6 mL. The left ovary measures 3 x 1.6 x 2.4 cm, 6 mL. No adnexal mass. No free fluid. US/US pelvic and transvaginal IMPRESSION: No acute sonographic abnormalities to explain the patient's symptoms.
[2023-02-09 14:53] VITALS: BP 125/84; PULSE 125; RESP 18; TEMP 38.4; O2SAT 100; BMI 26.7
--- NOTE | 2023-02-09 14:57 | ED_ITS ---
HPI - General Adult General Chief complaint: Abdominal Pain Stated complaint: Kidney Pain Time Seen by Provider: 02/09/23 16:10 Source: patient Mode of arrival: ambulatory Limitations: no limitations History of Present Illness HPI narrative: This is a 27-year-old female with a history of kidney infections who presents to the ER with 3 days home bilateral flank pain with radiation to the lower pelvic area with nausea and vomiting and chills. Patient denies any urinary symptoms, constipation, diarrhea, vaginal discharge. She is currently on her menstrual cycle She is not sexually active She has low concern for STI No history of IV drug abuse. No reports of back pain, incontinence of urine or stool, saddle anesthesia. Related Data Previous Rx's Medication Instructions Recorded ondansetron 4 mg disintegrating 4 mg PO Q6H PRN nausea and 04/04/21 tablet vomiting #10 tabs nitrofurantoin 100 mg PO BID #10 caps 04/17/21 monohydrate/macrocrystals 100 mg capsule (Macrobid) phenazopyridine 100 mg tablet 100 mg PO TID PRN dysuria 6 doses 04/17/21 (Pyridium) #6 tabs cyclobenzaprine 10 mg tablet 10 mg PO TID PRN muscle spasm #20 11/27/21 tabs ibuprofen 600 mg tablet 600 mg PO Q6H PRN pain #30 tabs 11/27/21 cyclobenzaprine 10 mg tablet 10 mg PO TID PRN muscle spasm #10 02/09/23 tabs ibuprofen 600 mg tablet 600 mg PO Q8H PRN fever or pain 02/09/23 #30 tabs ondansetron 4 mg disintegrating 4 mg PO Q6H PRN nausea and 02/09/23 tablet vomiting #10 tabs Allergies Allergy/AdvReac Type Severity Reaction Status Date / Time No Known Allergies Allergy Verified 12/05/21 12:44 [No Known Allergies*] Review of Systems Review of Systems: Yes all other systems are reviewed and are negative Constitutional: Constitutional: Reports no additional constitutional complaints, Denies body ache(s), Reports chills, Denies fever(s), Denies headache(s) and Denies weakness Eyes: Eyes: Reports no additional eye complaints and Denies change in vision ENT: Reports system reviewed and no additional complaints, except as documented, Denies dizziness, Denies headache(s), Denies nasal congestion, Denies nasal discharge and Denies neck pain Cardiovascular: Cardiovascular: Reports no additional cardiovascular complaint s, Denies chest pain, Denies leg edema and Denies dyspnea Respiratory: Respiratory: Reports no additional respiratory complaints, Denies cough and Denies dyspnea Gastrointestinal: Gastrointestinal: Reports no additional gastrointestinal complaints, Denies abdominal pain, Denies diarrhea, Reports nausea and Reports vomiting Genitourinary: Genitourinary: Reports no additional female genitourinary complaints and Denies urinary incontinence Musculoskeletal: Musculoskeletal: Reports no additional musculoskeletal complaints, Reports back pain, Denies arthralgias, Denies joint swelling, Denies neck pain, Denies numbness and Denies tingling Integumentary/Breasts: Skin/Breast: Reports system reviewed and no additional complaints, except as docu and Denies rash Neurologic: Reports system reviewed and no additional complaints, except as documented, Denies dizziness, Denies headache(s), Denies numbness, Denies tingling and Denies weakness PMFSH Past Medical History Attestation statement: The following information was validated with the patient. Source: old records reviewed and nursing notes reviewed Medical History Generalized anxiety disorder with panic attacks History of trauma No known health problems No known health problems Surgical History History of cholecystectomy Family History Family History Mother No problems noted. Sister No problems noted. Brother No problems noted. Father Unknown family medical history Social History Social History Alcohol intake: never Patient Tobacco Use Status: Tobacco use Unknown Advance Directives: No Advance Directives Information Provided: No Physical Exam ED Vital Signs: Vital Signs - 24 hr 02/09/23 14:53 02/09/23 16:53 02/09/23 17:11 Temperature 101.2 F H 98.7 F 98.5 F Pulse Rate 125 H 96 83 Respiratory Rate 18 16 18 Blood Pressure 125/84 123/77 110/65 Pulse Oximetry 100 98 100 Oxygen Delivery Method Room Air Room Air Room Air 02/09/23 19:13 Temperature 97.9 F Pulse Rate 97 Respiratory Rate 16 Blood Pressure 104/71 Pulse Oximetry 99 Oxygen Delivery Method Room Air BMI result Body Mass Index 26.7 Const General: cooperative, healthy appearing, comfortable and no acute distress Orientation/consciousness: patient oriented x3 Limitations: no limitations HENMT Head: Yes normal to inspection Ears: hearing grossly normal bilaterally Eyes General: appearance normal, both eyes and all related structures Pupils: Equal, round and reactive pupils present Neck Neck: Yes normal visual inspection, Yes full ROM, Yes no lymphadenopathy and Yes no meningeal signs Chest Chest palpation & inspection: normal inspection of the chest Resp Effort & Inspection: normal respiratory effort Auscultation: clear to auscultation bilaterally Cardio Rate: regular rate Rhythm: regular rhythm Peripheral pulses: Peripheral pulses 2+ throughout GI Inspection: Yes normal to inspection Palpation (GI): Soft to palpation and nontender 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: 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 CVA tenderness bilateral Speculum Exam - Vagina: normal appearance of the vagina Speculum Exam - Cervix: normal appearance of the cervix Bimanual exam- vagina & uterus: no cervical motion tenderness Bimanual Exam- Adnexa, other: normal adnexae and no tenderness Back/Spine/Pelvis Back: CVA tenderness Thoracic/Lumbar Spine: thoracic and lumbar spine normal to inspection Skin General skin exam: no rashes or lesions noted Neuro General: patient oriented x3, moves all extremities and no meningeal signs Cranial nerves: Yes Equal, round and reactive pupils present Cognition (Neuro): normal cognition Gait exam (Neuro): Normal gait present Motor exam (neuro): 5/5 motor strength present throughout Sensory Exam: Normal double simultaneous stimulation for sensation Course Course Course Narrative: This is a rapid medical exam: Additional HPI, ROS, PE not included below will be deferred to primary provider. Patient is a 27-year-old female presenting to the emergency department with complaint of back pain radiating around to abdomen bilaterally for 2 days as well as dysuria. Reports nausea and vomiting since yesterday. Plan: labs, UA Reevaluation(s) Reevaluation #1: 1820-CT A/P unremarkable. UA negative for infection. Labs unremarkable. WIll perform pelvic exam, send testing for BV panel, CT NG and obtain pelvic US Reevaluation #2: 1940-pelvic exam normal. Swabs were sent but patient has low concern as she is not sexually active. She is currently being treated for BV with Metrogel. Patient has exam is not concerning for PID. She does have a sore throat and congestion now. She may have a viral URI. 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 Comfortable plan for discharge home. Medications Administered Discontinued Medications Generic Name Dose Route Start Last Admin Trade Name Brentq PRN Reason Stop Dose Admin Acetaminophen 975 mg 02/09/23 14:59 02/09/23 15:02 Acetaminophen 325 Mg Tablet PO 02/09/23 15:00 975 mg ONCE ONE Administration Sodium Chloride 1,000 mls @ 999 mls/hr 02/09/23 16:18 02/09/23 20:42 Ns IV 02/09/23 17:18 Infused .Q1H1M STA Infusion Iohexol 85 ml 02/09/23 17:29 02/09/23 17:30 Iohexol 350 Mg/Ml 100 Ml Infus..Btl IV 02/09/23 17:30 85 ml ONCE ONE Administration Ketorolac Tromethamine 15 mg 02/09/23 16:18 02/09/23 16:34 Ketorolac Tromethamine 15 Mg/Ml Vial IVPUSH 02/09/23 16:19 15 mg ONCE ONE Administration Ondansetron HCl 4 mg 02/09/23 14:59 02/09/23 15:03 Ondansetron Odt 4 Mg Tab.Rapdis TRANSLINGU 02/09/23 15:00 4 mg ONCE ONE Administration Medical Decision Making Medical Decision Making MDM Narrative: 27-year-old female with a history of kidney infections presents the ER with several days of bilateral flank pain, vomiting, chills. On exam patient bilateral CVA tenderness. No focal abdominal pain. No lymphadenopathy or meningeal signs. No complaints. On my assessment patient is febrile, tachycardic WIll obtain labs, UA, ur preg, COVID screen, CT abdomen and pelvis Patient will have IV fluids, antiemetic and analgesia Differential Diagnosis Differential Diagnoses: The differential diagnosis associated with the presentation includes Pyelonephritis, renal colic, UTI PID, TOA, ovarian torsion, appendicitis Viral syndrome Low concern for epidural abscess with no history of IV drug abuse, immunocompromised state, neurological findings, red flag symptoms. Admission/Observation Consideration of admission/observation: Escalation of care including admission/observation considered see course of care Lab Data MDM Lab Attestation statement: I reviewed the patient's lab results. see course of care 02/09/23 16:27 02/09/23 16:27 Labs: Lab Results 02/09/23 02/09/23 02/09/23 Range/Units 16:22 16:27 16:27 WBC 9.1 (4.8-10.8) X10*3/uL RBC 4.57 (4.20-5.50) X10*6/uL Hgb 12.6 (12.0-16.0) g/dl Hct 37.4 (37.0-47.0) % MCV 81.8 (80.0-98.0) fL MCH 27.6 (27.0-33.0) pg MCHC 33.7 (31.0-35.0) g/dl RDW 12.5 (11.0-16.0) % Plt Count 198 (160-400) X10*3/uL MPV 10.2 (9.4-12.3) fL Immature Gran % (Auto) 0.2 (0.0-0.4) % Neut % (Auto) 85.1 H (45-73) % Lymph % (Auto) 6.0 L (20-40) % Vance % (Auto) 6.4 (2-11) % Eos % (Auto) 2.1 (0-4) % Baso % (Auto) 0.2 (0-2) % Lymph # (Auto) 0.6 L (1.2-4.9) X10*3/uL Vance # (Auto) 0.6 (0.1-1.2) X10*3/uL Eos # (Auto) 0.2 (0.0-0.4) X10*3/uL Baso # (Auto) 0.0 (0.0-0.2) X10*3/uL Abs Immat Gran (auto) 0.02 (0.00-0.03) X10*3/uL Absolute Neuts (auto) 7.7 (2.0-8.3) x10*3/uL Absolute Nucleated RBC 0.000 (0.0-0.012) X10*3/uL Nucleated RBC % (auto) 0.0 (0.0-0.2) /100WBC Sodium 136 (135-145) mmol/L Potassium 3.7 (3.3-5.1) mmol/L Chloride 104 (96-108) mmol/L Carbon Dioxide 25 (22-29) mmol/L Anion Gap 11 L (12-20) BUN 8 L (9-16) mg/dL Creatinine 0.69 (0.5-1.4) mg/dL Estim Creat Clear Calc 106.9 Estimated GFR > 60 Random Glucose 87 (60-115) mg/dL Lactic Acid (0.5-2.0) mmol/L Calcium 9.5 (8.4-10.2) mg/dL Total Bilirubin 0.5 (0.0-1.0) mg/dL AST 25 (5-31) U/L ALT 29 (0-31) U/L Alkaline Phosphatase 58 (39-117) U/L Total Protein 7.9 (6.5-8.0) g/dL Albumin 4.4 (3.5-5.0) g/dL Lipase 15 (8-78) U/L Beta HCG, Quant mIU/mL Urine Color Yellow Urine Appearance Clear Urine pH 5.5 (5.0-9.0) Ur Specific [place] >= 1.030 H (1.005-1.025) Urine Protein 30 (1+) H (Neg-Trace) mg/dL Urine Glucose (UA) Negative (Negative) mg/dL Urine Ketones 15 (Negative) mg/dL Urine Blood Small (1+) H (Negative) Urine Nitrite Negative (Negative) Ur Leukocyte Esterase Negative (Negative) Urine RBC 11-20 H (0-2) /HPF Urine WBC 0-5 (0-5) /HPF Ur Squamous Epith Cells 11-20 (0-2) /HPF Urine Bacteria None Seen (None Seen) Hyaline Casts 0-2 (0-2) /LPF COVID-19 (TRUDI) (Negative) COVID-19 Clin Com S. pyogenes GrpA PATO (Negative) 02/09/23 02/09/23 02/09/23 Range/Units 16:27 16:29 17:04 WBC (4.8-10.8) X10*3/uL RBC (4.20-5.50) X10*6/uL Hgb (12.0-16.0) g/dl Hct (37.0-47.0) % MCV (80.0-98.0) fL MCH (27.0-33.0) pg MCHC (31.0-35.0) g/dl RDW (11.0-16.0) % Plt Count (160-400) X10*3/uL MPV (9.4-12.3) fL Immature Gran % (Auto) (0.0-0.4) % Neut % (Auto) (45-73) % Lymph % (Auto) (20-40) % Vance % (Auto) (2-11) % Eos % (Auto) (0-4) % Baso % (Auto) (0-2) % Lymph # (Auto) (1.2-4.9) X10*3/uL Vance # (Auto) (0.1-1.2) X10*3/uL Eos # (Auto) (0.0-0.4) X10*3/uL Baso # (Auto) (0.0-0.2) X10*3/uL Abs Immat Gran (auto) (0.00-0.03) X10*3/uL Absolute Neuts (auto) (2.0-8.3) x10*3/uL Absolute Nucleated RBC (0.0-0.012) X10*3/uL Nucleated RBC % (auto) (0.0-0.2) /100WBC Sodium (135-145) mmol/L Potassium (3.3-5.1) mmol/L Chloride (96-108) mmol/L Carbon Dioxide (22-29) mmol/L Anion Gap (12-20) BUN (9-16) mg/dL Creatinine (0.5-1.4) mg/dL Estim Creat Clear Calc Estimated GFR Random Glucose (60-115) mg/dL Lactic Acid 0.6 (0.5-2.0) mmol/L Calcium (8.4-10.2) mg/dL Total Bilirubin (0.0-1.0) mg/dL AST (5-31) U/L ALT (0-31) U/L Alkaline Phosphatase (39-117) U/L Total Protein (6.5-8.0) g/dL Albumin (3.5-5.0) g/dL Lipase (8-78) U/L Beta HCG, Quant < 2 mIU/mL Urine Color Urine Appearance Urine pH (5.0-9.0) Ur Specific [place] (1.005-1.025) Urine Protein (Neg-Trace) mg/dL Urine Glucose (UA) (Negative) mg/dL Urine Ketones (Negative) mg/dL Urine Blood (Negative) Urine Nitrite (Negative) Ur Leukocyte Esterase (Negative) Urine RBC (0-2) /HPF Urine WBC (0-5) /HPF Ur Squamous Epith Cells (0-2) /HPF Urine Bacteria (None Seen) Hyaline Casts (0-2) /LPF COVID-19 (TRUDI) Negative (Negative) COVID-19 Clin Com See Note S. pyogenes GrpA PATO (Negative) 02/09/23 Range/Units 19:45 WBC (4.8-10.8) X10*3/uL RBC (4.20-5.50) X10*6/uL Hgb (12.0-16.0) g/dl Hct (37.0-47.0) % MCV (80.0-98.0) fL MCH (27.0-33.0) pg MCHC (31.0-35.0) g/dl RDW (11.0-16.0) % Plt Count (160-400) X10*3/uL MPV (9.4-12.3) fL Immature Gran % (Auto) (0.0-0.4) % Neut % (Auto) (45-73) % Lymph % (Auto) (20-40) % Vance % (Auto) (2-11) % Eos % (Auto) (0-4) % Baso % (Auto) (0-2) % Lymph # (Auto) (1.2-4.9) X10*3/uL Vance # (Auto) (0.1-1.2) X10*3/uL Eos # (Auto) (0.0-0.4) X10*3/uL Baso # (Auto) (0.0-0.2) X10*3/uL Abs Immat Gran (auto) (0.00-0.03) X10*3/uL Absolute Neuts (auto) (2.0-8.3) x10*3/uL Absolute Nucleated RBC (0.0-0.012) X10*3/uL Nucleated RBC % (auto) (0.0-0.2) /100WBC Sodium (135-145) mmol/L Potassium (3.3-5.1) mmol/L Chloride (96-108) mmol/L Carbon Dioxide (22-29) mmol/L Anion Gap (12-20) BUN (9-16) mg/dL Creatinine (0.5-1.4) mg/dL Estim Creat Clear Calc Estimated GFR Random Glucose (60-115) mg/dL Lactic Acid (0.5-2.0) mmol/L Calcium (8.4-10.2) mg/dL Total Bilirubin (0.0-1.0) mg/dL AST (5-31) U/L ALT (0-31) U/L Alkaline Phosphatase (39-117) U/L Total Protein (6.5-8.0) g/dL Albumin (3.5-5.0) g/dL Lipase (8-78) U/L Beta HCG, Quant mIU/mL Urine Color Urine Appearance Urine pH (5.0-9.0) Ur Specific [place] (1.005-1.025) Urine Protein (Neg-Trace) mg/dL Urine Glucose (UA) (Negative) mg/dL Urine Ketones (Negative) mg/dL Urine Blood (Negative) Urine Nitrite (Negative) Ur Leukocyte Esterase (Negative) Urine RBC (0-2) /HPF Urine WBC (0-5) /HPF Ur Squamous Epith Cells (0-2) /HPF Urine Bacteria (None Seen) Hyaline Casts (0-2) /LPF COVID-19 (TRUDI) (Negative) COVID-19 Clin Com S. pyogenes GrpA PATO Negative (Negative) Independent Interpretation I performed an independent interpretation of an: Ultrasound and CT Scan Interpretation: I independently reviewed the CT scan and the ultrasound agree with the radiology report Radiology Impression Discussion of test interpretation with radiology: I have reviewed the radiologist's reading. Radiologist Impression: [address] [address] [address] Scan Report Signed Patient: Sylvester Bates MR#: [id number] : 1995 Acct:[id number] Age/Sex: 27 / F ADM Date: 02/09/23 Loc: HO.ED Attending Dr: Ordering Physician: Ainsley Marie NP Date of Service: 02/09/23 Procedure(s): CT abdomen pelvis w IV con Accession Number(s): [id number] cc: Ainsley Marie NP~ EXAMINATION: CT ABDOMEN AND PELVIS WITH CONTRAST? CLINICAL INFORMATION: Back pain. Fever.? COMPARISON: MR abdomen 11/01/2015 right upper quadrant ultrasound abdomen 10/30/2015 TECHNIQUE: Multidetector volumetric images were obtained from the superior aspect of the liver through the pubic symphysis following administration 85 mL of Omnipaque 350 intravenous contrast. Sagittal and coronal reformatted images were obtained on the technologist's workstation.? Oral contrast: No This CT examination was performed using dose optimization techniques as appropriate, variously including the following: *Automated exposure control *Adjustment of mA and/or kV according to patient size (this includes techniques or standardized protocols for targeted exams where dose is matched to indication/reason for exam; i.e. extremities or head) *Use of iterative reconstruction technique DLP: 447 mGy-cm FINDINGS: LUNG BASES: The visualized lung bases are unremarkable.? LIVER, GALLBLADDER, AND BILIARY TREE: The liver is normal in size, shape, and attenuation. No focal hepatic lesion or biliary ductal dilatation is present. Status post cholecystectomy? PANCREAS: Unremarkable.? SPLEEN: Unremarkable.? ADRENAL GLANDS: Unremarkable.? KIDNEYS AND URETERS: The kidneys are normal in size, shape, and attenuation. No hydronephrosis, hydroureter, or calculi seen. No perinephric stranding. ? BLADDER: Unremarkable.? GASTROINTESTINAL TRACT: The small and large bowel are unremarkable. The appendix is unremarkable.? ABDOMINAL WALL: No significant hernia is appreciated.? LYMPH NODES: Normal. VASCULAR: Unremarkable. PELVIC VISCERA: Uterus is anteverted. No adnexal abnormality.? OSSEOUS STRUCTURES: Unremarkable.? CT/CT abdomen pelvis w IV con IMPRESSION: No significant abnormality.? ? Fleischner guidelines were followed. [address] [address] Ultrasound Report Signed Patient: Sylvester Bates MR#: [id number] : 1995 Acct:[id number] Age/Sex: 27 / F ADM Date: 02/09/23 Loc: HO.ED Attending Dr: Ordering Physician: Ainsley Marie NP Date of Service: 02/09/23 Procedure(s): US pelvic and transvaginal Accession Number(s): [id number] cc: Ainsley Marie NP~ EXAMINATION:? US PELVIS CLINICAL INFORMATION:? Pelvic and back pain, fever. Currently on menstrual period. COMPARISON: CT abdomen/pelvis performed earlier today. TECHNIQUE: Ultrasound of the pelvis is performed using both transabdominal and transvaginal transducers along with Doppler. Transvaginal imaging is performed due to inadequate visualization transabdominally. FINDINGS: The uterus is anteverted measuring 9.9 x 2.9 x 3.9 cm. No uterine lesion. The endometrium measures 0.5 cm without discrete focal abnormality. Ovaries are normal in size and morphology with preserved flow on color and spectral Doppler at the moment of this examination. The right ovary measures 3.6 x 1.6 x 2.2 cm, 6.6 mL. The left ovary measures 3 x 1.6 x 2.4 cm, 6 mL. No adnexal mass. No free fluid. US/US pelvic and transvaginal IMPRESSION: No acute sonographic abnormalities to explain the patient's symptoms. ? Prescription Management I considered prescription management with: Antibiotic Likely viral syndrome no need for antibiotic Discharge Plan Discharge Clinical Impression: Acute viral syndrome, Lumbar strain Patient Disposition: Home, Self-Care Instructions: Viral Syndrome (ED), Back Pain (ED) Additional Instructions: Your testing for COVID and strep are negative. Labs are unremarkable. Urine testing is negative. Ultrasound and CT scan are reassuring. You may have stranger back at work. Please apply heat or ice to the affected area. Up do gentle stretching. Take the medications as prescribed. You likely also have a viral upper respiratory infection. Take Motrin or Tylenol as needed for pain or fever Prescriptions: New ibuprofen 600 mg tablet 600 mg PO Q8H PRN (Reason: fever or pain) Qty: 30 0RF cyclobenzaprine 10 mg tablet 10 mg PO TID PRN (Reason: muscle spasm) Qty: 10 0RF ondansetron 4 mg tablet,disintegrating 4 mg PO Q6H PRN (Reason: nausea and vomiting) Qty: 10 0RF No Action nitrofurantoin monohyd/m-cryst [Macrobid] 100 mg capsule 100 mg PO BID Qty: 10 0RF Rx Instructions: must administer with a meal/food phenazopyridine [Pyridium] 100 mg tablet 100 mg PO TID PRN (Reason: dysuria) Qty: 6 0RF ibuprofen 600 mg tablet 600 mg PO Q6H PRN (Reason: pain) Qty: 30 0RF cyclobenzaprine 10 mg tablet 10 mg PO TID PRN (Reason: muscle spasm) Qty: 20 0RF ondansetron 4 mg tablet,disintegrating 4 mg PO Q6H PRN (Reason: nausea and vomiting) Qty: 10 0RF Referrals: [facility] [Primary Care Provider] - 10 days Stand Alone Forms: Work/School Release Interventions: ED Discharge Assessment Last Done: 02/09/23 20:42
[2023-02-09] MEDS: Acetaminophen 325 MG TABLET 975 MG PO (15:02)
[2023-02-09] MEDS: Ondansetron ODT 4 MG TAB.RAPDIS TRANSLINGU (15:03)
[2023-02-09] MEDS: Ketorolac Tromethamine 15 MG/ML VIAL IVPUSH (16:34)
[2023-02-09] MEDS: 0.9 % Sodium Chloride 1,000 ML 999 ML IV (16:34)
[2023-02-09 16:37] LABS: MANUAL DIFF FLAG NO
[2023-02-09 16:40] LABS: Appearance Urine Clear; Color Urine Yellow; Glucose Urine UA Negative (Negative); Leukocyte Esterase Urine Negative (Negative); Nitrite Urine Negative (Negative); PH 5.5 (5.0-9.0); Specific Gravity - Urine >= 1.030 (1.005-1.025); UMIC TRIGGER UACC YES; Urine Blood Small (1+) (Negative); Urine Ketones 15 mg/dL (Negative); Urine Protein 30 (1+) mg/dL (Neg-Trace)
[2023-02-09 16:43] LABS: Bacteria Urine None Seen (None Seen); Hyaline Casts Urine 0-2 /LPF (0-2); WBC Urine 0-5 /HPF (0-5)
[2023-02-09 16:47] LABS: Basophils Percent Auto 0.2 % (0-2); Eosinophils Absolute Auto 0.2 X10*3/uL (0.0-0.4); Eosinophils Percent Auto 2.1 % (0-4); Hematocrit 37.4 % (37.0-47.0); Hemoglobin 12.6 g/dl (12.0-16.0); Imm Gran Abs Auto 0.02 X10*3/uL (0.00-0.03); Imm Gran Pct Auto 0.2 % (0.0-0.4); Lymphocytes Absolute Auto 0.6 X10*3/uL (1.2-4.9); Mean Corpuscular HGB Conc 33.7 g/dl (31.0-35.0); Mean Corpuscular Hemoglobin 27.6 pg (27.0-33.0); Mean Corpuscular Volume 81.8 fL (80.0-98.0); Mean Platelet Volume 10.2 fL (9.4-12.3); Monocytes Absolute Auto 0.6 X10*3/uL (0.1-1.2); Monocytes Percent Auto 6.4 % (2-11); Neutrophils Absolute Auto 7.7 x10*3/uL (2.0-8.3); Neutrophils Percent Auto 85.1 % (45-73); Platelet Count 198 X10*3/uL (160-400); Red Blood Count 4.57 X10*6/uL (4.20-5.50); Red Cell Distribution Width 12.5 % (11.0-16.0); White Blood Count 9.1 X10*3/uL (4.8-10.8)
[2023-02-09 16:48] LABS: Lactic Acid 0.6 mmol/L (0.5-2.0)
[2023-02-09 16:53] VITALS: BP 123/77; PULSE 96; RESP 16; TEMP 37.1; O2SAT 98
[2023-02-09 16:53] LABS: Alanine Aminotransferase 29 U/L (0-31); Albumin Level 4.4 g/dL (3.5-5.0); Alkaline Phosphatase 58 U/L (39-117); Anion Gap 11 (12-20); Aspartate Amino Transferase 25 U/L (5-31); Bilirubin Total 0.5 mg/dL (0.0-1.0); Blood Urea Nitrogen 8 mg/dL (9-16); Calcium 9.5 mg/dL (8.4-10.2); Carbon Dioxide 25 mmol/L (22-29); Chloride 104 mmol/L (96-108); Creatinine Clr Calc Pharmacy 106.9; Estimated Glomerular Filt Rate > 60; Glucose Random 87 mg/dL (60-115); Lipase 15 U/L (8-78); Potassium 3.7 mmol/L (3.3-5.1); Sodium 136 mmol/L (135-145); Total Protein 7.9 g/dL (6.5-8.0)
[2023-02-09 16:59] LABS: HCG Quantitative < 2 mIU/mL
--- NOTE | 2023-02-09 17:07 | MHC.EDTECH ---
THIS PCT ASSUMED CARE OF PT ,VITALS SIGN TAKEN ,PT COVID SWAB COLLECTED ,AND 2ND SETS OF BLOOD CULTURE ALL SENT TO LAB, PT IS COMFORTABLE AT THIS TIME .
[2023-02-09 17:11] VITALS: BP 110/65; PULSE 83; RESP 18; TEMP 36.9; O2SAT 100
[2023-02-09] MEDS: iohexoL 350 MG/ML 100 ML INFUS..BTL 85 ML IV (17:30)
[2023-02-09 17:33] LABS: COVID-19 Test Negative (Negative); IDNOW Serial# BCCEAD1C
[2023-02-09 19:13] VITALS: BP 104/71; PULSE 97; RESP 16; TEMP 36.6; O2SAT 99
--- NOTE | 2023-02-09 19:14 | MHC.EDTECH ---
This tech assumed care at 1900, rounds and VS completed. Resting comfortably, call banerjee within reach.
[2023-02-09 19:57] LABS: IDNOW Serial# 08D9AD1C; Strep A Nucleic Acid Negative (Negative)
[2023-02-10 04:52] LABS: CT PCR NOT DETECTED (Not Detect.); NG PCR NOT DETECTED (Not Detect.)
[2023-02-11 13:31] LABS: BV Int Neg Control Negative (Negative); BV Int Pos Control Positive (Positive)
== END 2023-02-09 20:45 | disposition home or self-care (01) ==
PROVIDERS: Nurse Practitioner Family; Registered Nurse Emergency; Emergency Provider Emergency Medicine
DX: B34.9 Viral infection, unspecified (principal); R11.2 Nausea with vomiting, unspecified; M54.50 Low back pain, unspecified; R10.2 Pelvic and perineal pain; Z20.822 Contact with and (suspected) exposure to COVID-19; Z20.828 Contact with and (suspected) exposure to other viral communicable diseases; Z79.899 Other long term (current) drug therapy
CPT/HCPCS: 0353U; 36415; 74177; 76830; 76856; 80053; 81001; 83605; 83690; 84702; 85025; 87040; 87480; 87510; 87635; 87651; 87660; 96361; 96374; 99284; J1885; Q9967

== ENCOUNTER 2023-02-12 06:58 | Emergency (ER) | payer MEDICAID, SELFPAY ==
--- NOTE | ~2023-02-12 | XR_ITS ---
EXAMINATION: XR CHEST CLINICAL INFORMATION: 27-year-old female with cough COMPARISON: 01/16/2021 TECHNIQUE: 2 views of the chest were obtained. FINDINGS: No significant abnormality is noted involving the heart, lungs, mediastinum, bony thorax or soft tissues. XR/XR chest 2V IMPRESSION: Unremarkable examination.
[2023-02-12 07:10] VITALS: BP 106/71; PULSE 105; RESP 20; TEMP 37.2; O2SAT 99; BMI 25.9
--- NOTE | 2023-02-12 07:31 | ED.NAVMDI ---
HPI - Nausea/Vomiting/Diarrhea General Chief complaint: Nausea/Vomiting/Diarrhea Stated complaint: nasuea Time Seen by Provider: 02/12/23 07:22 Source: patient Mode of arrival: ambulatory Limitations: no limitations History of Present Illness HPI Narrative: This is a 27 years old of female presented to the emergency department with chief complaint of nausea vomiting and diarrhea, patient was evaluated in this emergency department the February 09 the for the same complain, that they had CT scan of the abdomen and pelvis, pelvic ultrasound blood work within normal limits she was discharged with diagnosis of viral syndrome. She states that she has been persistent having diarrhea nausea she states she cannot keep anything down. MD elicited complaint: nausea, vomiting and diarrhea Onset (ago): day(s) (4) Description of vomiting: watery Description of diarrhea: watery Associated nausea: Yes Associated abdominal pain: Yes Location of pain: diffuse Quality: cramping Exacerbating factors: none Relieving factors: none Associated symptoms: denies other symptoms Related Data Previous Rx's Medication Instructions Recorded ondansetron 4 mg disintegrating 4 mg PO Q6H PRN nausea and 04/04/21 tablet vomiting #10 tabs nitrofurantoin 100 mg PO BID #10 caps 04/17/21 monohydrate/macrocrystals 100 mg capsule (Macrobid) phenazopyridine 100 mg tablet 100 mg PO TID PRN dysuria 6 doses 04/17/21 (Pyridium) #6 tabs cyclobenzaprine 10 mg tablet 10 mg PO TID PRN muscle spasm #20 11/27/21 tabs ibuprofen 600 mg tablet 600 mg PO Q6H PRN pain #30 tabs 11/27/21 cyclobenzaprine 10 mg tablet 10 mg PO TID PRN muscle spasm #10 02/09/23 tabs ibuprofen 600 mg tablet 600 mg PO Q8H PRN fever or pain 02/09/23 #30 tabs ondansetron 4 mg disintegrating 4 mg PO Q6H PRN nausea and 02/09/23 tablet vomiting #10 tabs Allergies Allergy/AdvReac Type Severity Reaction Status Date / Time No Known Allergies Allergy Verified 12/05/21 12:44 [No Known Allergies*] Review of Systems Constitutional: Constitutional: Reports no additional constitutional complaints ENT: Reports system reviewed and no additional complaints, except as documented Cardiovascular: Cardiovascular: Reports no additional cardiovascular complaints Gastrointestinal: Gastrointestinal: Reports nausea Neurologic: Reports system reviewed and no additional complaints, except as documented PMFSH Past Medical History Medical History Generalized anxiety disorder with panic attacks History of trauma No known health problems No known health problems Surgical History History of cholecystectomy Family History Family History Mother No problems noted. Sister No problems noted. Brother No problems noted. Father Unknown family medical history Social History Social History Alcohol intake: never Patient Tobacco Use Status: Tobacco use Unknown Advance Directives: No Advance Directives Information Provided: No Physical Exam Vital Signs: Vital Signs: Last Vital Signs Temp 99 F 02/12/23 07:10 Pulse 105 H 02/12/23 07:10 Resp 20 02/12/23 07:10 BP 106/71 02/12/23 07:10 Pulse Ox 99 02/12/23 07:10 O2 Del Method Room Air 02/12/23 07:10 BMI result Body Mass Index 25.9 Const: General: cooperative Nutritional Appearance: well nourished Orientation/consciousness: patient oriented x3 Limitations: no limitations HEENT: Head: Yes normal to inspection Face and sinus: Yes normal facial exam Mouth: Normal oral and palatal mucosa present Neck: Neck: Yes normal visual inspection and Yes full ROM Chest: Chest palpation & inspection: normal inspection of the chest Resp: Effort & Inspection: normal respiratory effort Auscultation: clear to auscultation bilaterally Cardio: Jugular venous distension: no JVD Rate: regular rate Rhythm: regular rhythm GI: Inspection: Yes normal to inspection Palpation (GI): Soft to palpation, not firm, nontender and no guarding Auscultation: normal bowel sounds Skin: General skin exam: no rashes or lesions noted and elasticity normal Rashes: no rashes Neuro: General: patient oriented x3 Cranial nerves: Yes CN's II-XII intact bilaterally Course Reevaluation(s) Reevaluation #1: I re-examined the patient at 10:35 she is tolerating fluids well no vomiting no diarrhea at this time vital signs are stable, labs within normal limit I think she can be discharged home and follow-up with the primary care physician Time: 10:40 Medications Administered Discontinued Medications Generic Name Dose Route Start Last Admin Trade Name Yissel PRN Reason Stop Dose Admin Lorazepam 0.5 mg 02/12/23 07:31 02/12/23 07:48 Lorazepam 2 Mg/Ml Vial IVPUSH 02/12/23 07:32 0.5 mg ONCE ONE Administration Ondansetron HCl 4 mg 02/12/23 07:29 02/12/23 07:48 Ondansetron Hcl 4 Mg/2 Ml Vial IVPUSH 02/12/23 07:30 4 mg ONCE ONE Administration Medical Decision Making Medical Decision Making [facility] Narrative: Patient presented with nausea vomiting and diarrhea would place an IV hydrated checked blood work and reasses @10:40 Am much better tolerating fluids well labs within normal limit I do not think we need to do any imaging will be low yield, she had CT scan few days ago which was normal. Differential Diagnosis Differential Diagnoses: The differential diagnosis associated with the presentation includes Viral syndrome/dehydration/electrolyte imbalance/gastroenteritis Lab Data [facility] Lab Attestation statement: I reviewed the patient's lab results. 02/12/23 07:22 02/12/23 07:22 Labs: Lab Results 02/12/23 02/12/23 02/12/23 Range/Units 07:22 07:22 07:50 WBC 5.7 (4.8-10.8) X10*3/uL RBC 4.80 (4.20-5.50) X10*6/uL Hgb 13.2 (12.0-16.0) g/dl Hct 39.6 (37.0-47.0) % MCV 82.5 (80.0-98.0) fL MCH 27.5 (27.0-33.0) pg MCHC 33.3 (31.0-35.0) g/dl RDW 12.3 (11.0-16.0) % Plt Count 197 (160-400) X10*3/uL MPV 10.1 (9.4-12.3) fL Immature Gran % (Auto) 0.3 (0.0-0.4) % Neut % (Auto) 83.8 H (45-73) % Lymph % (Auto) 8.9 L (20-40) % [place] % (Auto) 6.3 (2-11) % Eos % (Auto) 0.5 (0-4) % Baso % (Auto) 0.2 (0-2) % Lymph # (Auto) 0.5 L (1.2-4.9) X10*3/uL [place] # (Auto) 0.4 (0.1-1.2) X10*3/uL Eos # (Auto) 0.0 (0.0-0.4) X10*3/uL Baso # (Auto) 0.0 (0.0-0.2) X10*3/uL Abs Immat Gran (auto) 0.02 (0.00-0.03) X10*3/uL Absolute Neuts (auto) 4.8 (2.0-8.3) x10*3/uL Absolute Nucleated RBC 0.000 (0.0-0.012) X10*3/uL Nucleated RBC % (auto) 0.0 (0.0-0.2) /100WBC Sodium 139 (135-145) mmol/L Potassium 3.8 (3.3-5.1) mmol/L Chloride 105 (96-108) mmol/L Carbon Dioxide 25 (22-29) mmol/L Anion Gap 13 (12-20) BUN 8 L (9-16) mg/dL Creatinine 0.74 (0.5-1.4) mg/dL Estim Creat Clear Calc 98.3 Estimated GFR > 60 Random Glucose 106 (60-115) mg/dL Calcium 9.6 (8.4-10.2) mg/dL Total Bilirubin 0.3 (0.0-1.0) mg/dL AST 28 (5-31) U/L ALT 25 (0-31) U/L Alkaline Phosphatase 53 (39-117) U/L Total Protein 7.8 (6.5-8.0) g/dL Albumin 4.4 (3.5-5.0) g/dL Lipase 33 (8-78) U/L Beta HCG, Quant < 2 mIU/mL Influenza Type A (PCR) NEGATIVE (Negative) Influenza Type B (PCR) NEGATIVE (Negative) RSV RNA Qual (PCR) NEGATIVE (Negative) SARS-CoV-2 RNA (RT-PCR) NEGATIVE (Negative) Independent Historian Clinical information obtained from an independent historian. History obtained from or confirmed by: Other (boyfriend) Discharge Plan Discharge Clinical Impression: Vomiting, Diarrhea Patient Disposition: Home, Self-Care Instructions: Acute Diarrhea (ED) Additional Instructions: Follow-up with your primary care physician, return if you are worse fever unable to keep field fluids down Prescriptions: No Action nitrofurantoin monohyd/m-cryst [Macrobid] 100 mg capsule 100 mg PO BID Qty: 10 0RF Rx Instructions: must administer with a meal/food phenazopyridine [Pyridium] 100 mg tablet 100 mg PO TID PRN (Reason: dysuria) Qty: 6 0RF ibuprofen 600 mg tablet 600 mg PO Q6H PRN (Reason: pain) Qty: 30 0RF cyclobenzaprine 10 mg tablet 10 mg PO TID PRN (Reason: muscle spasm) Qty: 20 0RF ondansetron 4 mg tablet,disintegrating 4 mg PO Q6H PRN (Reason: nausea and vomiting) Qty: 10 0RF ibuprofen 600 mg tablet 600 mg PO Q8H PRN (Reason: fever or pain) Qty: 30 0RF cyclobenzaprine 10 mg tablet 10 mg PO TID PRN (Reason: muscle spasm) Qty: 10 0RF ondansetron 4 mg tablet,disintegrating 4 mg PO Q6H PRN (Reason: nausea and vomiting) Qty: 10 0RF Referrals: [facility] [Primary Care Provider] - 2 days Stand Alone Forms: Work/School Release
[2023-02-12 07:33] LABS: Basophils Percent Auto 0.2 % (0-2); Eosinophils Percent Auto 0.5 % (0-4); Hematocrit 39.6 % (37.0-47.0); Hemoglobin 13.2 g/dl (12.0-16.0); Imm Gran Abs Auto 0.02 X10*3/uL (0.00-0.03); Imm Gran Pct Auto 0.3 % (0.0-0.4); Lymphocytes Absolute Auto 0.5 X10*3/uL (1.2-4.9); Lymphocytes Percent Auto 8.9 % (20-40); MANUAL DIFF FLAG NO; Mean Corpuscular HGB Conc 33.3 g/dl (31.0-35.0); Mean Corpuscular Hemoglobin 27.5 pg (27.0-33.0); Mean Corpuscular Volume 82.5 fL (80.0-98.0); Mean Platelet Volume 10.1 fL (9.4-12.3); Monocytes Absolute Auto 0.4 X10*3/uL (0.1-1.2); Monocytes Percent Auto 6.3 % (2-11); Neutrophils Absolute Auto 4.8 x10*3/uL (2.0-8.3); Neutrophils Percent Auto 83.8 % (45-73); Platelet Count 197 X10*3/uL (160-400); Red Cell Distribution Width 12.3 % (11.0-16.0); White Blood Count 5.7 X10*3/uL (4.8-10.8)
[2023-02-12] MEDS: ondansetron HCL 4 MG/2 ML VIAL IVPUSH (07:48)
[2023-02-12] MEDS: LORazepam 2 MG/ML VIAL 0.5 MG IVPUSH (07:48)
[2023-02-12 07:52] LABS: Alanine Aminotransferase 25 U/L (0-31); Albumin Level 4.4 g/dL (3.5-5.0); Alkaline Phosphatase 53 U/L (39-117); Anion Gap 13 (12-20); Aspartate Amino Transferase 28 U/L (5-31); Bilirubin Total 0.3 mg/dL (0.0-1.0); Blood Urea Nitrogen 8 mg/dL (9-16); Calcium 9.6 mg/dL (8.4-10.2); Carbon Dioxide 25 mmol/L (22-29); Chloride 105 mmol/L (96-108); Creatinine Clr Calc Pharmacy 98.3; Estimated Glomerular Filt Rate > 60; Glucose Random 106 mg/dL (60-115); Potassium 3.8 mmol/L (3.3-5.1); Sodium 139 mmol/L (135-145); Total Protein 7.8 g/dL (6.5-8.0)
[2023-02-12 08:03] LABS: Lipase 33 U/L (8-78)
[2023-02-12 08:14] LABS: HCG Quantitative < 2 mIU/mL
[2023-02-12 08:38] LABS: Influenza A PCR NEGATIVE (Negative); Influenza B PCR NEGATIVE (Negative); Resp Syncy Virus RNA Qual PCR NEGATIVE (Negative); SARS COV2 PCR INHOUSE NEGATIVE (Negative)
== END 2023-02-12 10:44 | disposition home or self-care (01) ==
PROVIDERS: Emergency Provider Emergency Medicine
DX: R11.2 Nausea with vomiting, unspecified (principal); R05.9 Cough, unspecified; R19.7 Diarrhea, unspecified; Z79.899 Other long term (current) drug therapy; Z20.822 Contact with and (suspected) exposure to COVID-19; Z20.828 Contact with and (suspected) exposure to other viral communicable diseases
CPT/HCPCS: 0241U; 36415; 71046; 80053; 83690; 84702; 85025; 96374; 96375; 99284; J2060; J2405

== ENCOUNTER 2023-03-05 10:29 | Outpatient (REF) | payer MEDICAID, SELFPAY ==
[2023-03-05 11:08] LABS: MANUAL DIFF FLAG NO
[2023-03-05 11:29] LABS: Basophils Percent Auto 0.3 % (0-2); Eosinophils Absolute Auto 0.6 X10*3/uL (0.0-0.4); Eosinophils Percent Auto 5.9 % (0-4); Hematocrit 36.2 % (37.0-47.0); Imm Gran Abs Auto 0.02 X10*3/uL (0.00-0.03); Imm Gran Pct Auto 0.2 % (0.0-0.4); Lymphocytes Absolute Auto 1.1 X10*3/uL (1.2-4.9); Lymphocytes Percent Auto 11.2 % (20-40); Mean Corpuscular HGB Conc 33.1 g/dl (31.0-35.0); Mean Corpuscular Hemoglobin 27.3 pg (27.0-33.0); Mean Corpuscular Volume 82.5 fL (80.0-98.0); Mean Platelet Volume 11.3 fL (9.4-12.3); Monocytes Absolute Auto 0.6 X10*3/uL (0.1-1.2); Monocytes Percent Auto 6.2 % (2-11); Neutrophils Absolute Auto 7.1 x10*3/uL (2.0-8.3); Neutrophils Percent Auto 76.2 % (45-73); Platelet Count 216 X10*3/uL (160-400); Red Blood Count 4.39 X10*6/uL (4.20-5.50); Red Cell Distribution Width 12.7 % (11.0-16.0); White Blood Count 9.4 X10*3/uL (4.8-10.8)
[2023-03-05 12:15] LABS: Iron 80 mcg/dL (30-160); Percent Iron Saturation 23 % (15-50); Total Iron Binding Capacity 348 mcg/dL (228-428); Unsaturated Iron Binding 268 ug/dL
[2023-03-05 12:22] LABS: Ferritin 24 ng/mL (10-122); TSH reflex Free T4 1.74 uIU/mL (0.32-4.0)
== END 2023-03-05 10:30 | disposition home or self-care (01) ==
LOC: HO.HHCL 10:29
PROVIDERS: Visit Provider Registered Nurse
DX: L65.9 Nonscarring hair loss, unspecified (principal)
CPT/HCPCS: 36415; 82728; 83540; 84443; 85025

== ENCOUNTER 2023-05-07 17:24 | Outpatient (REF) | payer MEDICAID, SELFPAY ==
[2023-05-09 22:03] LABS: C. trachomatis RNA TMA NOT DETECTED (NOT DETECTED); Candida glabrata RNA NOT DETECTED (NOT DETECTED); Candida species RNA DETECTED (NOT DETECTED); N. gonorrhoeae RNA TMA NOT DETECTED (NOT DETECTED); Trichomonas vaginalis RNA NOT DETECTED (NOT DETECTED)
== END 2023-05-07 17:25 | disposition home or self-care (01) ==
LOC: HO.HHCLNP 17:24
PROVIDERS: Visit Provider Emergency Medicine
DX: N89.8 Other specified noninflammatory disorders of vagina (principal)
CPT/HCPCS: 36415; 81513; 87481; 87491; 87591; 87661

== ENCOUNTER 2023-05-21 13:27 | Outpatient (REF) | payer MEDICAID, SELFPAY | END 2023-05-21 13:28 | disposition home or self-care (01) | LOC: HO.HHCLNP 13:27 | PROVIDERS: Visit Provider Registered Nurse | DX: R30.0 Dysuria (principal) | CPT/HCPCS: 87086; 87088; 87186 ==

== ENCOUNTER 2023-08-20 13:37 | Outpatient (REF) | payer MEDICAID, SELFPAY ==
[2023-08-20 16:14] LABS: MANUAL DIFF FLAG NO
[2023-08-20 16:19] LABS: Basophils Percent Auto 0.2 % (0-2); Eosinophils Absolute Auto 0.2 X10*3/uL (0.0-0.4); Eosinophils Percent Auto 1.9 % (0-4); Hematocrit 41.3 % (37.0-47.0); Hemoglobin 13.4 g/dl (12.0-16.0); Imm Gran Abs Auto 0.03 X10*3/uL (0.00-0.03); Imm Gran Pct Auto 0.3 % (0.0-0.4); Lymphocytes Absolute Auto 0.5 X10*3/uL (1.2-4.9); Lymphocytes Percent Auto 5.2 % (20-40); Mean Corpuscular HGB Conc 32.4 g/dl (31.0-35.0); Mean Corpuscular Hemoglobin 27.5 pg (27.0-33.0); Mean Corpuscular Volume 84.8 fL (80.0-98.0); Mean Platelet Volume 10.9 fL (9.4-12.3); Monocytes Absolute Auto 0.4 X10*3/uL (0.1-1.2); Monocytes Percent Auto 4.5 % (2-11); Neutrophils Absolute Auto 8.3 x10*3/uL (2.0-8.3); Neutrophils Percent Auto 87.9 % (45-73); Platelet Count 217 X10*3/uL (160-400); Red Blood Count 4.87 X10*6/uL (4.20-5.50); Red Cell Distribution Width 13.4 % (11.0-16.0); White Blood Count 9.5 X10*3/uL (4.8-10.8)
[2023-08-20 16:34] LABS: Anion Gap 9 (12-20); Blood Urea Nitrogen 13 mg/dL (9-16); Calcium 8.9 mg/dL (8.4-10.2); Carbon Dioxide 27 mmol/L (22-29); Chloride 106 mmol/L (96-108); Estimated Glomerular Filt Rate > 60; Glucose Random 89 mg/dL (60-115); Sodium 138 mmol/L (135-145)
[2023-08-20 16:57] LABS: Erythrocyte Sedimentation Rate 14 MM/HR (0-20)
== END 2023-08-20 13:38 | disposition home or self-care (01) ==
LOC: HO.HHCL 13:37
PROVIDERS: Visit Provider Internal Medicine
DX: R10.10 Upper abdominal pain, unspecified (principal)
CPT/HCPCS: 36415; 80048; 85025; 85652

== ENCOUNTER 2023-10-09 19:31 | Emergency (ER) | payer MEDICAID, SELFPAY ==
[2023-10-09 19:42] VITALS: BP 121/78; PULSE 108; RESP 16; TEMP 36.6; O2SAT 97; BMI 24.7
--- NOTE | 2023-10-09 19:45 | ED_ITS ---
HPI - General Adult General Chief complaint: GI Bleed Stated complaint: Blood in stool Time Seen by Provider: 10/10/23 02:37 Source: patient and family Mode of arrival: ambulatory History of Present Illness HPI narrative: 28-year-old female who states that she had blood with a bowel movement last night with some lower abdominal cramping and also reports some pinching pain in the lower back and abdomen. She otherwise denies any menstrual bleeding at this time. Related Data Previous Rx's ?Medication ?Instructions ?Recorded ondansetron 4 mg disintegrating 4 mg PO Q6H PRN nausea and 04/04/21 tablet vomiting #10 tabs nitrofurantoin 100 mg PO BID #10 caps 04/17/21 monohydrate/macrocrystals 100 mg capsule (Macrobid) phenazopyridine 100 mg tablet 100 mg PO TID PRN dysuria 6 doses 04/17/21 (Pyridium) #6 tabs cyclobenzaprine 10 mg tablet 10 mg PO TID PRN muscle spasm #20 11/27/21 tabs ibuprofen 600 mg tablet 600 mg PO Q6H PRN pain #30 tabs 11/27/21 cyclobenzaprine 10 mg tablet 10 mg PO TID PRN muscle spasm #10 02/09/23 tabs ibuprofen 600 mg tablet 600 mg PO Q8H PRN fever or pain 02/09/23 #30 tabs ondansetron 4 mg disintegrating 4 mg PO Q6H PRN nausea and 02/09/23 tablet vomiting #10 tabs nitrofurantoin 100 mg PO Q12H 7 days #14 caps 10/10/23 monohydrate/macrocrystals 100 mg capsule (Macrobid) Allergies Allergy/AdvReac Type Severity Reaction Status Date / Time No Known Allergies Allergy Verified 10/09/23 19:45 [No Known Allergies*] Review of Systems 2 Review of Systems: Pertinent positives and negatives as stated in HPI [facility] Past Medical History Source: nursing notes reviewed Medical History History of trauma Generalized anxiety disorder with panic attacks No known health problems No known health problems Surgical History History of cholecystectomy Family History Family History Mother No problems noted. Sister No problems noted. Brother No problems noted. Father Unknown family medical history Social History Social History Alcohol intake: never Patient Tobacco Use Status: Tobacco use Unknown Advance Directives: No Advance Directives Information Provided: Yes Do you have a plan to hurt others: No Plan Physical Exam ED Vital Signs: Vital Signs - 24 hr 10/09/23 19:42 10/10/23 01:07 10/10/23 03:17 Temperature 97.9 F 97.5 F 98.7 F Pulse Rate 108 H 86 111 H Respiratory Rate 16 14 16 Blood Pressure 121/78 101/61 117/83 Pulse Oximetry 97 100 Oxygen Delivery Method Room Air Room Air Room Air BMI result Body Mass Index 24.7 VITAL SIGNS: Reviewed. GENERAL: Well developed, well nourished, in no acute distress. HEAD: Normocephalic/atraumatic EYES: PERRLA, EOMI EARS: Ext canals without abnormality NOSE: Nares patent bilateral OROPHARYNX: no oral lesions noted, posterior pharynx clear NECK: Supple, no adenopathy LUNGS: Normal breath sounds. No adventitious sounds or accessory muscle use. SpO2<100> CARDIOVASCULAR: Regular rate and rhythm without noted murmurs ABDOMEN: Soft, non-tender, non-distended with bowel sounds. 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 EXTREMITIES: No cyanosis, clubbing or edema. SKIN: Inspection of the skin reveals no rashes NEUROLOGIC: Alert and oriented x 4. Strength and sensation to light touch were grossly intact x 4. Course Course Course Narrative: This is an RME: Additional HPI, ROS, PE not included below will be deferred to primary provider. This is a 28-year-old female, with a history of anxiety, who presents emergency department with complaints of abdominal pain, back pain, and rectal bleeding. Patient reports that she had a lot of blood with her bowel movement last night. Also endorsing low back pain lightheadedness. She states that it looks like a heavy period. Plan: Labs, UA, evaluation needed Medical Decision Making Medical Decision Making MDM Narrative: 28-year-old female with history and clinical presentation, DDX: Constipation with associated hemorrhoidal bleeding, lower clinical suspicion for diverticular/AVM as patient has no significant past medical history. I reviewed all investigations and hematologic indices demonstrated noninfectious leukocytosis and no anemia or thrombocytopenia. Chemistry seizure negative for TAMERA/electrolyte or liver enzyme derangements, beta hCG is undetectable lipase is within normal limits. Urinalysis although it does not show any nitrite positivity there are significant numbers of wbc's with small to moderate amount of squamous epithelium in no presence of bacteria, on review of prior microbiology results of urine cultures patient did grow out Proteus mirabilis. Will empirically start patient on antibiotic and have her follow-up with primary care doctor. Will also provide referral to Gastroenterology for further evaluation of her concerns of rectal bleeding. Differential Diagnosis Differential Diagnoses: The differential diagnosis associated with the presentation includes Please see the discussion above Admission/Observation Consideration of admission/observation: Escalation of care including admission/observation considered Please see the discussion above Lab Data MDM Lab Attestation statement: I reviewed the patient's lab results. Jennifer the discussion about 10/09/23 20:18 10/09/23 20:18 Labs: Lab Results 10/09/23 10/09/23 Range/Units 20:18 20:23 WBC 11.6 H (4.8-10.8) X10*3/uL RBC 4.66 (4.20-5.50) X10*6/uL Hgb 13.2 (12.0-16.0) g/dl Hct 38.4 (37.0-47.0) % MCV 82.4 (80.0-98.0) fL MCH 28.3 (27.0-33.0) pg MCHC 34.4 (31.0-35.0) g/dl RDW 12.8 (11.0-16.0) % Plt Count 208 (160-400) X10*3/uL MPV 11.0 (9.4-12.3) fL Immature Gran % (Auto) 0.1 (0.0-0.4) % Neut % (Auto) 77.2 H (45-73) % Lymph % (Auto) 15.1 L (20-40) % [place] % (Auto) 5.5 (2-11) % Eos % (Auto) 1.8 (0-4) % Baso % (Auto) 0.3 (0-2) % Lymph # (Auto) 1.8 (1.2-4.9) X10*3/uL [place] # (Auto) 0.6 (0.1-1.2) X10*3/uL Eos # (Auto) 0.2 (0.0-0.4) X10*3/uL Baso # (Auto) 0.0 (0.0-0.2) X10*3/uL Abs Immat Gran (auto) 0.01 (0.00-0.03) X10*3/uL Absolute Neuts (auto) 8.9 H (2.0-8.3) x10*3/uL Absolute Nucleated RBC 0.000 (0.0-0.012) X10*3/uL Nucleated RBC % (auto) 0.0 (0.0-0.2) /100WBC Sodium 141 (135-145) mmol/L Potassium 3.6 (3.3-5.1) mmol/L Chloride 108 (96-108) mmol/L Carbon Dioxide 25 (22-29) mmol/L Anion Gap 12 (12-20) BUN 14 (9-16) mg/dL Creatinine 0.69 (0.5-1.4) mg/dL Estim Creat Clear Calc 106.4 Estimated GFR > 60 Random Glucose 64 (60-115) mg/dL Calcium 9.3 (8.4-10.2) mg/dL Total Bilirubin 0.2 (0.0-1.0) mg/dL Direct Bilirubin < 0.2 (0.0-0.5) mg/dL AST 19 (5-31) U/L ALT 17 (0-31) U/L Alkaline Phosphatase 52 (39-117) U/L Total Protein 7.8 (6.5-8.0) g/dL Albumin 4.5 (3.5-5.0) g/dL Lipase 31 (8-78) U/L Beta HCG, Quant < 2 mIU/mL Urine Color Yellow Urine Appearance Cloudy Urine pH 5.5 (5.0-9.0) Ur Specific [place] >= 1.030 H (1.005-1.025) Urine Protein Trace (Neg-Trace) mg/dL Urine Glucose (UA) Negative (Negative) mg/dL Urine Ketones Negative (Negative) mg/dL Urine Blood Trace H (Negative) Urine Nitrite Negative (Negative) Ur Leukocyte Esterase Small (1+) H (Negative) Urine RBC 0-2 (0-2) /HPF Urine WBC 21-50 H (0-5) /HPF Ur Squamous Epith Cells 6-10 (0-2) /HPF Urine Bacteria Trace (None Seen) Hyaline Casts 0-2 (0-2) /LPF External Record Review External record reviewed: Outpatient record, Prior outpatient labs and Prior outpatient radiology Critical Care Time Critical Care Time Critical Care Time: Yes Total Critical Care Time: 30 Attestation: I personally attest to this time spent taking care of the patient. Discharge Plan Discharge Clinical Impression: Back pain, Bleeding hemorrhoid, Urinary tract infection Patient Disposition: Home, Self-Care Instructions: Hemorrhoids (ED), Urinary Tract Infection in Women (ED) Additional Instructions: 1. complete the entire course of antibiotics as prescribed. 2. Follow-up with your primary care doctor in the morning. 3. Referral has been provided to you to follow-up with gastroenterology regarding your concerns rectal bleeding. Return to the ER for any worsening symptoms. Prescriptions: New nitrofurantoin monohyd/m-cryst [Macrobid] 100 mg capsule 100 mg PO Q12H 7 Days Qty: 14 0RF Rx Instructions: must administer with a meal/food No Action nitrofurantoin monohyd/m-cryst [Macrobid] 100 mg capsule 100 mg PO BID Qty: 10 0RF Rx Instructions: must administer with a meal/food phenazopyridine [Pyridium] 100 mg tablet 100 mg PO TID PRN (Reason: dysuria) Qty: 6 0RF ibuprofen 600 mg tablet 600 mg PO Q6H PRN (Reason: pain) Qty: 30 0RF cyclobenzaprine 10 mg tablet 10 mg PO TID PRN (Reason: muscle spasm) Qty: 20 0RF ondansetron 4 mg tablet,disintegrating 4 mg PO Q6H PRN (Reason: nausea and vomiting) Qty: 10 0RF ibuprofen 600 mg tablet 600 mg PO Q8H PRN (Reason: fever or pain) Qty: 30 0RF cyclobenzaprine 10 mg tablet 10 mg PO TID PRN (Reason: muscle spasm) Qty: 10 0RF ondansetron 4 mg tablet,disintegrating 4 mg PO Q6H PRN (Reason: nausea and vomiting) Qty: 10 0RF Print Language: [place]
[2023-10-09 20:23] LABS: MANUAL DIFF FLAG NO
[2023-10-09 20:25] LABS: Basophils Percent Auto 0.3 % (0-2); Eosinophils Absolute Auto 0.2 X10*3/uL (0.0-0.4); Eosinophils Percent Auto 1.8 % (0-4); Hematocrit 38.4 % (37.0-47.0); Hemoglobin 13.2 g/dl (12.0-16.0); Imm Gran Abs Auto 0.01 X10*3/uL (0.00-0.03); Imm Gran Pct Auto 0.1 % (0.0-0.4); Lymphocytes Absolute Auto 1.8 X10*3/uL (1.2-4.9); Lymphocytes Percent Auto 15.1 % (20-40); Mean Corpuscular HGB Conc 34.4 g/dl (31.0-35.0); Mean Corpuscular Hemoglobin 28.3 pg (27.0-33.0); Mean Corpuscular Volume 82.4 fL (80.0-98.0); Monocytes Absolute Auto 0.6 X10*3/uL (0.1-1.2); Monocytes Percent Auto 5.5 % (2-11); Neutrophils Absolute Auto 8.9 x10*3/uL (2.0-8.3); Neutrophils Percent Auto 77.2 % (45-73); Platelet Count 208 X10*3/uL (160-400); Red Blood Count 4.66 X10*6/uL (4.20-5.50); Red Cell Distribution Width 12.8 % (11.0-16.0); White Blood Count 11.6 X10*3/uL (4.8-10.8)
[2023-10-09 20:38] LABS: Alanine Aminotransferase 17 U/L (0-31); Albumin Level 4.5 g/dL (3.5-5.0); Alkaline Phosphatase 52 U/L (39-117); Anion Gap 12 (12-20); Aspartate Amino Transferase 19 U/L (5-31); Bilirubin Direct < 0.2 mg/dL (0.0-0.5); Bilirubin Total 0.2 mg/dL (0.0-1.0); Blood Urea Nitrogen 14 mg/dL (9-16); Calcium 9.3 mg/dL (8.4-10.2); Carbon Dioxide 25 mmol/L (22-29); Chloride 108 mmol/L (96-108); Creatinine Clr Calc Pharmacy 106.4; Estimated Glomerular Filt Rate > 60; Glucose Random 64 mg/dL (60-115); Lipase 31 U/L (8-78); Potassium 3.6 mmol/L (3.3-5.1); Sodium 141 mmol/L (135-145); Total Protein 7.8 g/dL (6.5-8.0)
[2023-10-09 20:47] LABS: HCG Quantitative < 2 mIU/mL
[2023-10-09 20:55] LABS: Appearance Urine Cloudy; Color Urine Yellow; Glucose Urine UA Negative (Negative); Leukocyte Esterase Urine Small (1+) (Negative); Nitrite Urine Negative (Negative); PH 5.5 (5.0-9.0); Specific Gravity - Urine >= 1.030 (1.005-1.025); UMIC TRIGGER UACC YES; Urine Blood Trace (Negative); Urine Ketones Negative (Negative); Urine Protein Trace mg/dL (Neg-Trace)
[2023-10-09 21:00] LABS: Bacteria Urine Trace (None Seen); Hyaline Casts Urine 0-2 /LPF (0-2); RBC Urine 0-2 /HPF (0-2); UACC Culture Trigger YES; WBC Urine 21-50 /HPF (0-5)
[2023-10-10 01:07] VITALS: BP 101/61; PULSE 86; RESP 14; TEMP 36.4; O2SAT 100
[2023-10-10 03:17] VITALS: BP 117/83; PULSE 111; RESP 16; TEMP 37.1
[2023-10-10] MEDS: Nitrofurantoin Monohyd/M-Cryst 100 MG CAPSULE PO (03:34)
[2023-10-10 03:39] VITALS: BP 117/83; PULSE 111; RESP 16; TEMP 37.1; O2SAT 100
== END 2023-10-10 03:40 | disposition home or self-care (01) ==
PROVIDERS: Physician Assistant Medical; Emergency Provider Student in an Organized Health Care Education/Training Program
DX: K64.9 Unspecified hemorrhoids (principal); N39.0 Urinary tract infection, site not specified; M54.9 Dorsalgia, unspecified
CPT/HCPCS: 36415; 80048; 80076; 81001; 83690; 84702; 85025; 87086; 99283; 99284

== ENCOUNTER 2024-01-21 13:30 | Outpatient (REF) | payer MEDICAID, SELFPAY ==
[2024-01-21 16:28] LABS: HCG Quantitative 613 mIU/mL
[2024-01-21 17:58] LABS: Bacterial Vaginosis PCR POSITIVE (Negative); Candida Group PCR NOT DETECTED (Not Detect); Candida glab krusei PCR NOT DETECTED (Not Detect); Trichomonas vaginalis PCR NOT DETECTED (Not Detect)
[2024-01-21 18:35] LABS: CT PCR NOT DETECTED (Not Detect.); NG PCR NOT DETECTED (Not Detect.)
== END 2024-01-21 13:31 | disposition home or self-care (01) ==
LOC: HO.HHCL 13:30
PROVIDERS: Visit Provider Advanced Practice Midwife
DX: O26.891 Other specified pregnancy related conditions, first trimester (principal); N89.8 Other specified noninflammatory disorders of vagina; Z3A.01 Less than 8 weeks gestation of pregnancy
CPT/HCPCS: 0352U; 36415; 84702; 87491; 87591

== ENCOUNTER 2024-01-23 13:07 | Outpatient (REF) | payer MEDICAID, SELFPAY ==
[2024-01-23 16:44] LABS: HCG Quantitative 1281 mIU/mL
== END 2024-01-23 13:08 | disposition home or self-care (01) ==
LOC: HO.HHCL 13:07
PROVIDERS: Visit Provider Advanced Practice Midwife
DX: Z34.91 Encounter for supervision of normal pregnancy, unspecified, first trimester (principal)
CPT/HCPCS: 36415; 84702

== ENCOUNTER 2024-02-12 16:39 | Emergency (ER) | payer MEDICAID, SELFPAY ==
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
[2024-02-12 16:43] VITALS: BP 119/69; PULSE 93; RESP 18; TEMP 36.8; O2SAT 99; BMI 25.3
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
[2024-02-12 17:19] LABS: MANUAL DIFF FLAG NO
[2024-02-12 17:22] LABS: Basophils Percent Auto 0.2 % (0-2); Eosinophils Absolute Auto 0.1 X10*3/uL (0.0-0.4); Eosinophils Percent Auto 0.7 % (0-4); Hematocrit 36.8 % (37.0-47.0); Hemoglobin 12.9 g/dl (12.0-16.0); Imm Gran Abs Auto 0.03 X10*3/uL (0.00-0.03); Imm Gran Pct Auto 0.3 % (0.0-0.4); Lymphocytes Absolute Auto 1.2 X10*3/uL (1.2-4.9); Lymphocytes Percent Auto 12.4 % (20-40); Mean Corpuscular HGB Conc 35.1 g/dl (31.0-35.0); Mean Corpuscular Hemoglobin 28.4 pg (27.0-33.0); Mean Corpuscular Volume 80.9 fL (80.0-98.0); Mean Platelet Volume 10.2 fL (9.4-12.3); Monocytes Absolute Auto 0.5 X10*3/uL (0.1-1.2); Monocytes Percent Auto 5.4 % (2-11); Platelet Count 229 X10*3/uL (160-400); Red Blood Count 4.55 X10*6/uL (4.20-5.50); Red Cell Distribution Width 12.7 % (11.0-16.0); White Blood Count 9.9 X10*3/uL (4.8-10.8)
[2024-02-12 17:29] LABS: Prothrombin Time 12.3 SEC (11.1-13.3)
[2024-02-12 17:50] LABS: Alanine Aminotransferase 16 U/L (0-31); Albumin Level 4.3 g/dL (3.5-5.0); Alkaline Phosphatase 44 U/L (39-117); Anion Gap 14 (12-20); Aspartate Amino Transferase 15 U/L (5-31); Bilirubin Total 0.3 mg/dL (0.0-1.0); Blood Urea Nitrogen 12 mg/dL (9-16); Carbon Dioxide 21 mmol/L (22-29); Chloride 107 mmol/L (96-108); Creatinine Clr Calc Pharmacy 104.8; Estimated Glomerular Filt Rate > 60; Glucose Random 88 mg/dL (60-115); Potassium 3.8 mmol/L (3.3-5.1); Sodium 138 mmol/L (135-145); Total Protein 7.7 g/dL (6.5-8.0)
[2024-02-12 18:53] VITALS: BP 106/80; PULSE 74; RESP 20; TEMP 36.9; O2SAT 97
[2024-02-12] MEDS: Acetaminophen 325 MG TABLET 975 MG PO (18:55)
--- NOTE | 2024-02-12 18:56 | PC.NURSE ---
Assumed care of pt. Pt sitting on stretcher, no acute distress at this time. Sig other a bedside. Pending US read for dispo.
[2024-02-12 21:00] VITALS: BP 104/77; PULSE 78; RESP 20; TEMP 37.2; O2SAT 100
[2024-02-12 21:33] VITALS: BP 104/77; PULSE 78; RESP 20; TEMP 37.2; O2SAT 100
== END 2024-02-12 21:33 | disposition home or self-care (01) ==
PROVIDERS: Physician Assistant; Emergency Provider Internal Medicine
DX: O26.892 Other specified pregnancy related conditions, second trimester (principal); M54.50 Low back pain, unspecified; Z3A.14 14 weeks gestation of pregnancy; Z79.899 Other long term (current) drug therapy
CPT/HCPCS: 36415; 76801; 80053; 84702; 85025; 85610; 99284

== ENCOUNTER 2024-02-19 17:29 | Outpatient (REF) | payer MEDICAID, SELFPAY | END 2024-02-19 17:30 | disposition home or self-care (01) | LOC: HO.HHCLNP 17:29 | PROVIDERS: Visit Provider Advanced Practice Midwife | DX: R30.0 Dysuria (principal); R82.79 Other abnormal findings on microbiological examination of urine | CPT/HCPCS: 87086; 87147 ==

== ENCOUNTER 2024-02-25 15:14 | Outpatient (REF) | payer MEDICAID, SELFPAY ==
[2024-02-28 06:38] LABS: TS Negative Control Passed; TS Panel A 0; TS Panel B 0; TS Positive Control Passed; TSpotTB Negative (Negative)
== END 2024-02-25 15:15 | disposition home or self-care (01) ==
LOC: HO.HHCL 15:14
PROVIDERS: Visit Provider Registered Nurse
DX: Z00.00 Encounter for general adult medical examination without abnormal findings (principal)
CPT/HCPCS: 36415; 86481

== ENCOUNTER 2024-05-12 06:03 | Emergency (ER) | payer MEDICAID, SELFPAY ==
--- NOTE | ~2024-05-12 | US_ITS ---
EXAMINATION: US OBSTETRICAL ULTRASOUND CLINICAL INFORMATION: Limited exam for viability. Lower abdominal cramping and 20 weeks COMPARISON: OB ultrasound 02/12/2024 LMP: 12/28/2022. TECHNIQUE: Ultrasound of the maternal pelvis is performed using transabdominal transducer. M-mode Doppler is also performed. FINDINGS: A single fetus is present with a heart beat of 144 bpm. The placenta is located posteriorly and appears normal without evidence of placenta previa. The cervix measures 5.2 cm in length and is closed US/US OB pelvic and transvaginal IMPRESSION: A heartbeat is present. There is no placenta previa. Electronically signed by: Duane Taylor MD 05/12/2024 02:53 PM EST
[2024-05-12 06:04] VITALS: BP 103/61; PULSE 98; RESP 20; TEMP 37.1; O2SAT 99; BMI 27.8
[2024-05-12 06:30] LABS: IDNOW Serial# 6674DD1D; Strep A Nucleic Acid Negative (Negative)
[2024-05-12 06:59] LABS: Influenza A PCR NEGATIVE (Negative); Influenza B PCR NEGATIVE (Negative); Resp Syncy Virus RNA Qual PCR NEGATIVE (Negative); SARS COV2 PCR INHOUSE NEGATIVE (Negative)
--- NOTE | 2024-05-12 09:20 | ED_ITS ---
HPI - General Adult General Chief complaint: General Medical Stated complaint: headache, cramping Time Seen by Provider: 05/12/24 08:58 Source: patient and RN notes reviewed Mode of arrival: ambulatory Limitations: no limitations History of Present Illness ED Provider: Richelle Dickson PA-C HPI narrative: This is a 29-year-old female, 20 week G5 A1 P3, who presents emergency department with complaints of headache, sore throat, cough, congestion, and abdominal cramping which started yesterday. Patient states that her daughter's sick with similar symptoms. She also reports that she has had intermittent left lower quadrant cramping. She denies any urinary symptoms. She does report that she had an episode of vaginal discharge yesterday, denies any vaginal discharge today. She denies any fevers, chills. She reports chest pain which only occurs with coughing. Denies any pleuritic chest pain. Denies taking any medications prior to her arrival today. No vaginal bleeding. No other complaints or concerns at this time MD complaint: URI symptoms, abdominal cramping Onset (ago): day(s) Relieving factors: none Exacerbating factors: none Associated symptoms: denies other symptoms Treatments prior to arrival: none Related Data Previous Rx's ?Medication ?Instructions ?Recorded ondansetron 4 mg disintegrating 4 mg PO Q6H PRN nausea and 04/04/21 tablet vomiting #10 tabs nitrofurantoin 100 mg PO BID #10 caps 04/17/21 monohydrate/macrocrystals 100 mg capsule (Macrobid) phenazopyridine 100 mg tablet 100 mg PO TID PRN dysuria 6 doses 04/17/21 (Pyridium) #6 tabs cyclobenzaprine 10 mg tablet 10 mg PO TID PRN muscle spasm #20 11/27/21 tabs ibuprofen 600 mg tablet 600 mg PO Q6H PRN pain #30 tabs 11/27/21 cyclobenzaprine 10 mg tablet 10 mg PO TID PRN muscle spasm #10 02/09/23 tabs ibuprofen 600 mg tablet 600 mg PO Q8H PRN fever or pain 02/09/23 #30 tabs ondansetron 4 mg disintegrating 4 mg PO Q6H PRN nausea and 02/09/23 tablet vomiting #10 tabs nitrofurantoin 100 mg PO Q12H 7 days #14 caps 10/10/23 monohydrate/macrocrystals 100 mg capsule (Macrobid) Allergies Allergy/AdvReac Type Severity Reaction Status Date / Time No Known Allergies Allergy Verified 05/12/24 06:10 [No Known Allergies*] Review of Systems 2 Review of Systems: Yes all other systems are reviewed and are negative Constitutional: Constitutional: Reports as per HPI [facility] Past Medical History Medical History History of trauma Generalized anxiety disorder with panic attacks No known health problems No known health problems Surgical History History of cholecystectomy Family History Family History Mother No problems noted. Sister No problems noted. Brother No problems noted. Father Unknown family medical history Social History Social History Alcohol intake: never Patient Tobacco Use Status: Tobacco use Unknown Advance Directives: No Advance Directives Information Provided: Yes Physical Exam ED Vital Signs: Vital Signs - 24 hr 05/12/24 06:04 05/12/24 15:09 Temperature 98.7 F 97.9 F Pulse Rate 98 66 Respiratory Rate 20 16 Blood Pressure 103/61 104/90 H Pulse Oximetry 99 98 Oxygen Delivery Method Room Air Room Air BMI result Body Mass Index 27.8 Const General: cooperative, comfortable and no acute distress Orientation/consciousness: patient oriented x3 Limitations: no limitations HENMT Other: Posterior oropharynx is mildly erythematous, no tonsillar hypertrophy or exudates noted. Uvula is midline. Head: Yes normal to inspection, Yes normocephalic and Yes atraumatic Ears: hearing grossly normal bilaterally and TM's normal bilaterally General nose exam: Normal external nose present Face and sinus: Yes normal facial exam Throat: Yes posterior oropharynx normal Eyes General: appearance normal, both eyes and all related structures Eyelids: Yes eyelids normal Conjunctivae: conjunctivae normal Sclerae: sclerae normal Pupils: Equal, round and reactive pupils present EOM: EOMs intact bilaterally Neck Neck: Yes normal visual inspection, Yes full ROM and Yes no lymphadenopathy Lymphatic: no lymphadenopathy noted Chest Chest palpation & inspection: normal inspection of the chest Resp Effort & Inspection: normal respiratory effort and able to speak in complete sentences Auscultation: clear to auscultation bilaterally, no crackles, no rales, no rhonchi and no wheezes Cardio Rate: regular rate Rhythm: regular rhythm Heart sounds: S1 normal heart sound present and S2 normal heart sound present GI Other: Gravid abdomen, patient has tenderness palpation along the left lower quadrant, no rebound or guarding. Inspection: Yes normal to inspection Skin General skin exam: no rashes or lesions noted Trauma: no lacerations or abrasions Wounds: no wounds Neuro General: patient oriented x3 and moves all extremities Cranial nerves: Yes Equal, round and reactive pupils present Extrem General: Yes normal to inspection Right upper extremity: normal to inspection Left upper extremity: normal to inspection Right lower extremity: normal to inspection Left lower extremity: normal to inspection Course Reevaluation(s) Reevaluation #1: Ultrasound finally returns, revealing a heartbeat that is present, with no placenta previa. I discussed case with Dr. Hernandez, who recommends that given patient is above 20 weeks , she should be transferred externally for further evaluation due to being 20 weeks . He recommends that patient should be transferred to [facility] for further recommendations although patient's OB is at [facility]. Patient reporting that she does not have any lower abdominal cramping at this time however I explained to patient that it is very important for her to be evaluated fully to ensure that there is no threatened illness for patient and or baby, which can not be managed through the emergency department or hospital here. Patient requiring higher level of care. Time: 15:20 Reevaluation #2: Spoke to Dr. Mckinnon from [facility], recommending going to [facility] for further evaluation.Transfer of care initiated. Time: 15:40 Medications Administered Discontinued Medications Generic Name Dose Route Start Last Admin Trade Name Freq PRN Reason Stop Dose Admin Acetaminophen 650 mg 05/12/24 09:30 05/12/24 09:32 Acetaminophen 325 Mg Tablet PO 05/12/24 09:31 650 mg ONCE ONE Administration Medical Decision Making Medical Decision Making [facility] Narrative: This is a 29-year-old female, G5 A1 P3 LMP 12/18/2022, 20 weeks , who presents emergency department with complaints of headache, congestion, dry cough, and sore throat since yesterday. On arrival, vital signs within normal limits. She is speaking in full sentences under no acute distress. Patient does admit to having lower abdominal cramping, intermittently which started yesterday. She states that she had an episode of vaginal discharge yesterday, which has since resolved. Patient does have mild tenderness palpation along the left suprapubic region. No rebound or guarding. Differential diagnoses include viral URI, COVID, flu, pneumonia-unlikely, strep pharyngitis, threatened miscarriage. Differential Diagnosis Differential Diagnoses: The differential diagnosis associated with the presentation includes See above Lab Data MDM Lab Attestation statement: I reviewed the patient's lab results. No leukocytosis, normocytic anemia with an H&H of 11.9/34.3, and low platelets at 150, chemistry revealing no acute electrolyte derangements. 05/12/24 09:42 05/12/24 09:42 Labs: Lab Results 05/12/24 05/12/24 05/12/24 Range/Units 06:12 09:42 12:58 WBC 9.4 (4.8-10.8) X10*3/uL RBC 4.12 L (4.20-5.50) X10*6/uL Hgb 11.9 L (12.0-16.0) g/dl Hct 34.3 L (37.0-47.0) % MCV 83.3 (80.0-98.0) fL MCH 28.9 (27.0-33.0) pg MCHC 34.7 (31.0-35.0) g/dl RDW 13.1 (11.0-16.0) % Plt Count 152 L D (160-400) X10*3/uL MPV 10.1 (9.4-12.3) fL Immature Gran % (Auto) 1.1 H (0.0-0.4) % Neut % (Auto) 90.0 H (45-73) % Lymph % (Auto) 4.1 L (20-40) % Dickson % (Auto) 4.1 (2-11) % Eos % (Auto) 0.5 (0-4) % Baso % (Auto) 0.2 (0-2) % Lymph # (Auto) 0.4 L (1.2-4.9) X10*3/uL Dickson # (Auto) 0.4 (0.1-1.2) X10*3/uL Eos # (Auto) 0.1 (0.0-0.4) X10*3/uL Baso # (Auto) 0.0 (0.0-0.2) X10*3/uL Abs Immat Gran (auto) 0.10 H (0.00-0.03) X10*3/uL Absolute Neuts (auto) 8.4 H (2.0-8.3) x10*3/uL Absolute Nucleated RBC 0.000 (0.0-0.012) X10*3/uL Nucleated RBC % (auto) 0.0 (0.0-0.2) /100WBC Sodium 134 L (135-145) mmol/L Potassium 3.7 (3.3-5.1) mmol/L Chloride 103 (96-108) mmol/L Carbon Dioxide 23 (22-29) mmol/L Anion Gap 12 (12-20) BUN 6 L (9-16) mg/dL Creatinine 0.54 (0.5-1.4) mg/dL Estim Creat Clear Calc 136.7 Estimated GFR > 60 Random Glucose 83 (60-115) mg/dL Calcium 9.1 D (8.4-10.2) mg/dL Total Bilirubin 0.5 (0.0-1.0) mg/dL Direct Bilirubin 0.1 (0.0-0.5) mg/dL AST 23 (5-31) U/L ALT 20 (0-31) U/L Alkaline Phosphatase 55 (39-117) U/L Total Protein 6.9 (6.5-8.0) g/dL Albumin 3.8 (3.5-5.0) g/dL Beta HCG, Quant 57269 mIU/mL Urine Color Yellow Urine Appearance Cloudy Urine pH 6.5 (5.0-9.0) Ur Specific [place] 1.020 (1.005-1.025) Urine Protein Negative (Neg-Trace) mg/dL Urine Glucose (UA) Negative (Negative) mg/dL Urine Ketones Negative (Negative) mg/dL Urine Blood Negative (Negative) Urine Nitrite Negative (Negative) Ur Leukocyte Esterase Moderate (2+) H (Negative) Urine RBC 0-2 (0-2) /HPF Urine WBC 0-5 (0-5) /HPF Ur Squamous Epith Cells 11-20 (0-2) /HPF Urine Bacteria Trace (None Seen) Hyaline Casts 0-2 (0-2) /LPF Chlam trachomat DNA PCR (Not Detect.) Influenza Type A (PCR) NEGATIVE (Negative) Influenza Type B (PCR) NEGATIVE (Negative) N.gonorrhoeae DNA (PCR) (Not Detect.) RSV RNA Qual (PCR) NEGATIVE (Negative) SARS-CoV-2 RNA (RT-PCR) NEGATIVE (Negative) S. pyogenes GrpA PATO Negative (Negative) T. vaginalis (PCR) (Not Detect) Bact vaginosis (PCR) (Negative) C. krusei/glabrata (PCR) (Not Detect) Raquel group (PCR) (Not Detect) Blood Type AB Positive 05/12/24 05/12/24 Range/Units 13:00 14:14 WBC (4.8-10.8) X10*3/uL RBC (4.20-5.50) X10*6/uL Hgb (12.0-16.0) g/dl Hct (37.0-47.0) % MCV (80.0-98.0) fL MCH (27.0-33.0) pg MCHC (31.0-35.0) g/dl RDW (11.0-16.0) % Plt Count (160-400) X10*3/uL MPV (9.4-12.3) fL Immature Gran % (Auto) (0.0-0.4) % Neut % (Auto) (45-73) % Lymph % (Auto) (20-40) % Dickson % (Auto) (2-11) % Eos % (Auto) (0-4) % Baso % (Auto) (0-2) % Lymph # (Auto) (1.2-4.9) X10*3/uL Dickson # (Auto) (0.1-1.2) X10*3/uL Eos # (Auto) (0.0-0.4) X10*3/uL Baso # (Auto) (0.0-0.2) X10*3/uL Abs Immat Gran (auto) (0.00-0.03) X10*3/uL Absolute Neuts (auto) (2.0-8.3) x10*3/uL Absolute Nucleated RBC (0.0-0.012) X10*3/uL Nucleated RBC % (auto) (0.0-0.2) /100WBC Sodium (135-145) mmol/L Potassium (3.3-5.1) mmol/L Chloride (96-108) mmol/L Carbon Dioxide (22-29) mmol/L Anion Gap (12-20) BUN (9-16) mg/dL Creatinine (0.5-1.4) mg/dL Estim Creat Clear Calc Estimated GFR Random Glucose (60-115) mg/dL Calcium (8.4-10.2) mg/dL Total Bilirubin (0.0-1.0) mg/dL Direct Bilirubin (0.0-0.5) mg/dL AST (5-31) U/L ALT (0-31) U/L Alkaline Phosphatase (39-117) U/L Total Protein (6.5-8.0) g/dL Albumin (3.5-5.0) g/dL Beta HCG, Quant mIU/mL Urine Color Urine Appearance Urine pH (5.0-9.0) Ur Specific [place] (1.005-1.025) Urine Protein (Neg-Trace) mg/dL Urine Glucose (UA) (Negative) mg/dL Urine Ketones (Negative) mg/dL Urine Blood (Negative) Urine Nitrite (Negative) Ur Leukocyte Esterase (Negative) Urine RBC (0-2) /HPF Urine WBC (0-5) /HPF Ur Squamous Epith Cells (0-2) /HPF Urine Bacteria (None Seen) Hyaline Casts (0-2) /LPF Chlam trachomat DNA PCR NOT DETECTED (Not Detect.) Influenza Type A (PCR) (Negative) Influenza Type B (PCR) (Negative) N.gonorrhoeae DNA (PCR) NOT DETECTED (Not Detect.) RSV RNA Qual (PCR) (Negative) SARS-CoV-2 RNA (RT-PCR) (Negative) S. pyogenes GrpA PATO (Negative) T. vaginalis (PCR) NOT DETECTED (Not Detect) Bact vaginosis (PCR) NEGATIVE (Negative) C. krusei/glabrata (PCR) NOT DETECTED (Not Detect) Raquel group (PCR) NOT DETECTED (Not Detect) Blood Type Radiology Impression Discussion of test interpretation with radiology: I have reviewed the radiologist's reading. Radiologist Impression: US/US OB pelvic and transvaginal IMPRESSION: A heartbeat is present. There is no placenta previa. Electronically signed by: Duane Taylor MD 05/12/2024 02:53 PM EST Dictated By: Duane Taylor MD Discharge Plan Discharge Clinical Impression: Acute upper respiratory infection, Patient Disposition: [facility] Transfer Details: WE2 Instructions: at 19 to 22 Weeks (ED) Prescriptions: No Action nitrofurantoin monohyd/m-cryst [Macrobid] 100 mg capsule 100 mg PO BID Qty: 10 0RF Rx Instructions: must administer with a meal/food phenazopyridine [Pyridium] 100 mg tablet 100 mg PO TID PRN (Reason: dysuria) Qty: 6 0RF ibuprofen 600 mg tablet 600 mg PO Q6H PRN (Reason: pain) Qty: 30 0RF cyclobenzaprine 10 mg tablet 10 mg PO TID PRN (Reason: muscle spasm) Qty: 20 0RF ondansetron 4 mg tablet,disintegrating 4 mg PO Q6H PRN (Reason: nausea and vomiting) Qty: 10 0RF ibuprofen 600 mg tablet 600 mg PO Q8H PRN (Reason: fever or pain) Qty: 30 0RF cyclobenzaprine 10 mg tablet 10 mg PO TID PRN (Reason: muscle spasm) Qty: 10 0RF ondansetron 4 mg tablet,disintegrating 4 mg PO Q6H PRN (Reason: nausea and vomiting) Qty: 10 0RF nitrofurantoin monohyd/m-cryst [Macrobid] 100 mg capsule 100 mg PO Q12H 7 Days Qty: 14 0RF Rx Instructions: must administer with a meal/food Print Language: Greek
[2024-05-12] MEDS: Acetaminophen 325 MG TABLET 650 MG PO (09:32)
[2024-05-12 09:47] LABS: MANUAL DIFF FLAG NO
[2024-05-12 09:54] LABS: Basophils Percent Auto 0.2 % (0-2); Eosinophils Absolute Auto 0.1 X10*3/uL (0.0-0.4); Eosinophils Percent Auto 0.5 % (0-4); Hematocrit 34.3 % (37.0-47.0); Hemoglobin 11.9 g/dl (12.0-16.0); Imm Gran Pct Auto 1.1 % (0.0-0.4); Lymphocytes Absolute Auto 0.4 X10*3/uL (1.2-4.9); Lymphocytes Percent Auto 4.1 % (20-40); Mean Corpuscular HGB Conc 34.7 g/dl (31.0-35.0); Mean Corpuscular Hemoglobin 28.9 pg (27.0-33.0); Mean Corpuscular Volume 83.3 fL (80.0-98.0); Mean Platelet Volume 10.1 fL (9.4-12.3); Monocytes Absolute Auto 0.4 X10*3/uL (0.1-1.2); Monocytes Percent Auto 4.1 % (2-11); Neutrophils Absolute Auto 8.4 x10*3/uL (2.0-8.3); Platelet Count 152 X10*3/uL (160-400); Red Blood Count 4.12 X10*6/uL (4.20-5.50); Red Cell Distribution Width 13.1 % (11.0-16.0); White Blood Count 9.4 X10*3/uL (4.8-10.8)
[2024-05-12 10:13] LABS: Alanine Aminotransferase 20 U/L (0-31); Albumin Level 3.8 g/dL (3.5-5.0); Alkaline Phosphatase 55 U/L (39-117); Anion Gap 12 (12-20); Aspartate Amino Transferase 23 U/L (5-31); Bilirubin Direct 0.1 mg/dL (0.0-0.5); Bilirubin Total 0.5 mg/dL (0.0-1.0); Blood Urea Nitrogen 6 mg/dL (9-16); Calcium 9.1 mg/dL (8.4-10.2); Carbon Dioxide 23 mmol/L (22-29); Chloride 103 mmol/L (96-108); Creatinine Clr Calc Pharmacy 136.7; Estimated Glomerular Filt Rate > 60; Glucose Random 83 mg/dL (60-115); Potassium 3.7 mmol/L (3.3-5.1); Sodium 134 mmol/L (135-145); Total Protein 6.9 g/dL (6.5-8.0)
[2024-05-12 10:34] LABS: HCG Quantitative 17576 mIU/mL
[2024-05-12 13:15] LABS: Appearance Urine Cloudy; Color Urine Yellow; Glucose Urine UA Negative (Negative); Leukocyte Esterase Urine Moderate (2+) (Negative); Nitrite Urine Negative (Negative); PH 6.5 (5.0-9.0); UMIC TRIGGER UACC YES; Urine Blood Negative (Negative); Urine Ketones Negative (Negative); Urine Protein Negative (Neg-Trace)
[2024-05-12 13:30] LABS: Bacteria Urine Trace (None Seen); Hyaline Casts Urine 0-2 /LPF (0-2); RBC Urine 0-2 /HPF (0-2); UACC Culture Trigger YES; WBC Urine 0-5 /HPF (0-5)
--- NOTE | 2024-05-12 13:30 | PC.NURSE ---
Pt. requesting something for N/V. PA notified and aware
[2024-05-12 15:09] VITALS: BP 104/90; PULSE 66; RESP 16; TEMP 36.6; O2SAT 98
--- NOTE | 2024-05-12 15:18 | PM.OBCN ---
OB Consult Note - [facility] Data Service Date: 05/12/24 Primary Care Provider: ROXY Velez Narrative I was consulted on Sylvester Bates at 15:09, the patient is a 29 year old female at 20 week and 5 days of gestation G5 A1 P3013, who presents emergency department with complaints of headache, sore throat, cough, congestion, and abdominal cramping which started yesterday, the patient reports that she has had intermittent left lower quadrant cramping. She denies any urinary symptoms. No leakage of fluid or bleeding. Good movement. She denies any fevers, chills. She reports chest pain which only occurs with coughing. Denies any pleuritic chest pain. Workup done emergency room include the following: H&H 11.9/34.3, platelets 152 K AST/ALT Ultrasound showed viable fetus with heart rate at 144 beats per minute, cervical length 5.2 cm no evidence of placenta previa OB PMFSH Past Medical History Medical History History of trauma Generalized anxiety disorder with panic attacks No known health problems No known health problems Family History Family History Mother No problems noted. Sister No problems noted. Brother No problems noted. Father Unknown family medical history Surgical History Surgical History History of cholecystectomy Social History Social History Alcohol intake: never Patient Tobacco Use Status: Tobacco use Unknown Advance Directives: No Advance Directives Information Provided: Yes Meds Allergies Allergy/AdvReac Type Severity Reaction Status Date / Time No Known Allergies Allergy Verified 05/12/24 06:10 [No Known Allergies*] OB Flowsheet OB Flowsheet & Tools History 3 Elective abortions Para 2 Spontaneous abortions Hx # Term Pregnancies Ectopic pregnancies Hx # Pregnancies Multiple births OB Physical Exam Physical Exam Additional Comments: Abdominal exam reported by DMITRIY Whitley in the emergency room as the following: Patient does have mild tenderness palpation along the left suprapubic region. No rebound or guarding. OB Consult Results Labs 05/12/24 09:42 05/12/24 09:42 Labs: Short CBC 05/12/24 Range/Units 09:42 WBC 9.4 (4.8-10.8) X10*3/uL Hgb 11.9 L (12.0-16.0) g/dl Hct 34.3 L (37.0-47.0) % Plt Count 152 L D (160-400) X10*3/uL BMP 05/12/24 09:42 Sodium 134 L Potassium 3.7 Chloride 103 Carbon Dioxide 23 BUN 6 L Creatinine 0.54 Calcium 9.1 D Liver Function 05/12/24 Range/Units 09:42 Total Bilirubin 0.5 (0.0-1.0) mg/dL Direct Bilirubin 0.1 (0.0-0.5) mg/dL AST 23 (5-31) U/L ALT 20 (0-31) U/L Alkaline Phosphatase 55 (39-117) U/L Albumin 3.8 (3.5-5.0) g/dL Urine 05/12/24 Range/Units 12:58 Urine Color Yellow Urine Appearance Cloudy Urine pH 6.5 (5.0-9.0) Ur Specific [place] 1.020 (1.005-1.025) Urine Protein Negative (Neg-Trace) mg/dL Urine Glucose (UA) Negative (Negative) mg/dL OB - CN: A/P Assessment and Plan (1) : Status: Acute Assessment and Plan: Since the patient has abdominal and left lower quadrant pelvic cramping, and is above 20 weeks of gestation, recommended transfer to [facility] since there is no maternity at [facility]. Discussed the case with DMITRIY vasquez in the emergency room and the urgency of the clinical situation was transmitted to the provider. I spent a total of 20 minutes reviewing the chart, talking to the patient via video and documenting in the medical record. Time Spent With Patient Time: Total time managing care of this patient today ____ minutes.
[2024-05-12 15:27] LABS: CT PCR NOT DETECTED (Not Detect.); NG PCR NOT DETECTED (Not Detect.)
[2024-05-12 15:41] LABS: Bacterial Vaginosis PCR NEGATIVE (Negative); Candida Group PCR NOT DETECTED (Not Detect); Candida glab krusei PCR NOT DETECTED (Not Detect); Trichomonas vaginalis PCR NOT DETECTED (Not Detect)
[2024-05-12 17:27] VITALS: BP 104/90; PULSE 66; RESP 16; TEMP 36.6; O2SAT 98
== END 2024-05-12 17:29 | disposition short-term general hospital (02) ==
PROVIDERS: Physician Assistant Medical; Emergency Provider Emergency Medicine; PCP Registered Nurse
DX: O98.812 Other maternal infectious and parasitic diseases complicating pregnancy, second trimester (principal); Z3A.20 20 weeks gestation of pregnancy; R51.9 Headache, unspecified; R10.9 Unspecified abdominal pain; Z03.818 Encounter for observation for suspected exposure to other biological agents ruled out
CPT/HCPCS: 0241U; 0352U; 36415; 76801; 76817; 80048; 80076; 81001; 84702; 85025; 86900; 86901; 87086; 87491; 87591; 87651; 99285

== ENCOUNTER → 2024-05-12 06:22 | Outpatient (BNV) | payer MEDICAID, SELFPAY | PROVIDERS: Emergency Provider Emergency Medicine; PCP Registered Nurse; Visit Provider Obstetrics & Gynecology | DX: Z34.90 Encounter for supervision of normal pregnancy, unspecified, unspecified trimester (principal) | CPT/HCPCS: 99283 ==

== ENCOUNTER 2024-09-01 18:17 | Emergency (ER) | payer MEDICAID, SELFPAY ==
--- NOTE | ~2024-09-01 | US_ITS ---
CLINICAL HISTORY: patient with CP and SOB, pls r o DVT Bilateral lower extremity venous duplex ultrasound Comparison: None Findings: The visualized deep veins are fully compressible with normal flow. No popliteal cyst. There is a trace amount of fluid seen in the medial aspect of the left calf which is likely secondary to edema. A fluid collection or myotendinous injury of the gastrocnemius muscle is considered less likely. Impression: No deep vein thrombosis. This document has been electronically signed by: Pooja Pimentel MD on 09/01/2024 20:30:47
[2024-09-01 18:18] VITALS: BP 125/64; PULSE 119; RESP 22; TEMP 37; O2SAT 100; BMI 27.4
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
--- NOTE | 2024-09-01 18:21 | ECG_ITS ---
Test Reason : SOB Blood Pressure : */* mmHG Vent. Rate : 118 BPM Atrial Rate : 118 BPM P-R Int : 148 ms QRS Dur : 68 ms QT Int : 320 ms P-R-T Axes : 52 28 7 degrees QTcB Int : 448 ms Sinus tachycardia Possible Left atrial enlargement Cannot rule out Anterior infarct , age undetermined Abnormal ECG When compared with ECG of 16-Jan-2021 07:19, Vent. rate has increased by 44 bpm Referred By: Neva Villanueva Electronically Signed By: German Reyes
[2024-09-01 18:36] VITALS: BP 116/78; PULSE 120; RESP 22; O2SAT 98
[2024-09-01 18:40] LABS: MANUAL DIFF FLAG NO
[2024-09-01 18:41] LABS: Basophils Percent Auto 0.1 % (0-2); Eosinophils Absolute Auto 0.1 X10*3/uL (0.0-0.4); Hematocrit 31.8 % (37.0-47.0); Hemoglobin 10.8 g/dl (12.0-16.0); Imm Gran Abs Auto 0.07 X10*3/uL (0.00-0.03); Imm Gran Pct Auto 0.7 % (0.0-0.4); Lymphocytes Absolute Auto 1.1 X10*3/uL (1.2-4.9); Lymphocytes Percent Auto 10.3 % (20-40); Mean Corpuscular Hemoglobin 26.7 pg (27.0-33.0); Mean Corpuscular Volume 78.7 fL (80.0-98.0); Mean Platelet Volume 10.5 fL (9.4-12.3); Monocytes Absolute Auto 0.5 X10*3/uL (0.1-1.2); Monocytes Percent Auto 4.7 % (2-11); Neutrophils Absolute Auto 8.8 x10*3/uL (2.0-8.3); Neutrophils Percent Auto 83.2 % (45-73); Platelet Count 159 X10*3/uL (160-400); Red Blood Count 4.04 X10*6/uL (4.20-5.50); Red Cell Distribution Width 13.4 % (11.0-16.0); White Blood Count 10.5 X10*3/uL (4.8-10.8)
[2024-09-01 18:54] LABS: Alanine Aminotransferase 15 U/L (0-31); Albumin Level 3.4 g/dL (3.5-5.0); Alkaline Phosphatase 136 U/L (39-117); Anion Gap 10 (12-20); Bilirubin Total 0.2 mg/dL (0.0-1.0); Blood Urea Nitrogen 7 mg/dL (9-16); Calcium 8.6 mg/dL (8.4-10.2); Carbon Dioxide 21 mmol/L (22-29); Chloride 112 mmol/L (96-108); Creatinine Clr Calc Pharmacy 134.2; Estimated Glomerular Filt Rate > 60; Glucose Random 108 mg/dL (60-115); Potassium 3.6 mmol/L (3.3-5.1); Sodium 139 mmol/L (135-145); Total Protein 6.9 g/dL (6.5-8.0)
[2024-09-01 19:01] LABS: Troponin-I High Sensitivity < 2.7 ng/L (<3.5-17.0)
[2024-09-01 19:09] LABS: Aspartate Amino Transferase 22 U/L (5-31)
[2024-09-01 19:17] LABS: Influenza A PCR NEGATIVE (Negative); Influenza B PCR NEGATIVE (Negative); Resp Syncy Virus RNA Qual PCR NEGATIVE (Negative); SARS COV2 PCR INHOUSE POSITIVE (Negative)
[2024-09-01] MEDS: Acetaminophen 325 MG TABLET 975 MG PO (19:21)
[2024-09-01 19:23] LABS: B Type Natriuretic Peptide < 10 pg/mL (<100)
[2024-09-01 20:24] VITALS: BP 99/67; PULSE 105; RESP 12; TEMP 36.9; O2SAT 97
--- NOTE | 2024-09-01 21:22 | PC.NURSE ---
heart via doppler at 137 bpm
[2024-09-01 21:35] VITALS: BP 99/67; PULSE 105; RESP 12; TEMP 36.9; O2SAT 97
== END 2024-09-01 21:49 | disposition home or self-care (01) ==
PROVIDERS: Registered Nurse Emergency; Emergency Provider Emergency Medicine; PCP Registered Nurse
DX: O98.513 Other viral diseases complicating pregnancy, third trimester (principal); U07.1 COVID-19; Z3A.37 37 weeks gestation of pregnancy; R10.2 Pelvic and perineal pain; R07.9 Chest pain, unspecified; Z03.818 Encounter for observation for suspected exposure to other biological agents ruled out; Z79.899 Other long term (current) drug therapy
CPT/HCPCS: 0241U; 80053; 83880; 84484; 85025; 93005; 93970; 99284

== ENCOUNTER → 2024-09-01 18:21 | Outpatient (BNV) | payer MEDICAID, SELFPAY | PROVIDERS: Emergency Provider Emergency Medicine; PCP Registered Nurse; Visit Provider Internal Medicine Cardiovascular Disease | DX: R00.0 Tachycardia, unspecified (principal); R06.02 Shortness of breath; R94.31 Abnormal electrocardiogram [ECG] [EKG] | CPT/HCPCS: 93010 ==

== ENCOUNTER → 2024-09-01 18:59 | Outpatient (BNV) | payer MEDICAID, SELFPAY | PROVIDERS: Emergency Provider Emergency Medicine; PCP Registered Nurse; Visit Provider Radiology Diagnostic Radiology | DX: R07.9 Chest pain, unspecified (principal); R06.02 Shortness of breath | CPT/HCPCS: 93970 ==

== ENCOUNTER 2025-01-22 22:12 | Emergency (ER) | payer MEDICAID, SELFPAY ==
--- NOTE | 2025-01-22 | ECG_ITS ---
Test Reason : CP Blood Pressure : */* mmHG Vent. Rate : 82 BPM Atrial Rate : 82 BPM P-R Int : 160 ms QRS Dur : 74 ms QT Int : 352 ms P-R-T Axes : 69 44 36 degrees QTcB Int : 411 ms Normal sinus rhythm with sinus arrhythmia Normal ECG When compared with ECG of 01-Sep-2024 18:26, No significant change was found Referred By: Generic ED Physician Electronically Signed By: RENETTA MAYA
--- NOTE | ~2025-01-22 | XR_ITS ---
CLINICAL HISTORY: cp 2 view chest x-ray Comparison: 02/12/2023 Findings: Lungs are clear without acute infiltrates. No pneumothorax. Heart size normal. No acute bony abnormalities. Impression: No acute processes This document has been electronically signed by: Luis Aceves MD on 01/22/2025 23:14:40
[2025-01-22 22:26] VITALS: BP 119/68; PULSE 90; RESP 18; TEMP 36.8; O2SAT 99; BMI 28.9
[2025-01-22 22:45] LABS: MANUAL DIFF FLAG NO
[2025-01-22 22:47] LABS: Hematocrit 36.7 % (37.0-47.0); Hemoglobin 12.5 g/dl (12.0-16.0); Imm Gran Abs Auto 0.02 X10*3/uL (0.00-0.03); Imm Gran Pct Auto 0.3 % (0.0-0.4); Lymphocytes Absolute Auto 1.6 X10*3/uL (1.2-4.9); Mean Corpuscular HGB Conc 34.1 g/dl (31.0-35.0); Mean Corpuscular Hemoglobin 26.9 pg (27.0-33.0); Mean Corpuscular Volume 79.1 fL (80.0-98.0); NRBC Abs Auto 0.000 X10*3/uL (0.0-0.012); NRBC Pct Auto 0.0 /100WBC (0.0-0.2); Platelet Count 208 X10*3/uL (160-400); Red Blood Count 4.64 X10*6/uL (4.20-5.50); White Blood Count 6.9 X10*3/uL (4.8-10.8)
[2025-01-22 22:59] LABS: Alanine Aminotransferase 26 U/L (0-31); Albumin Level 4.5 g/dL (3.5-5.0); Alkaline Phosphatase 62 U/L (39-117); Anion Gap 12 (12-20); Aspartate Amino Transferase 22 U/L (5-31); Blood Urea Nitrogen 14 mg/dL (9-16); Calcium 9.4 mg/dL (8.4-10.2); Carbon Dioxide 26 mmol/L (22-29); Chloride 106 mmol/L (96-108); Creatinine Clr Calc Pharmacy 119.4; Estimated Glomerular Filt Rate > 60; Potassium 4.1 mmol/L (3.3-5.1); Sodium 140 mmol/L (135-145); Total Protein 7.5 g/dL (6.5-8.0)
[2025-01-22 23:06] LABS: Troponin-I High Sensitivity < 2.7 ng/L (<3.5-17.0)
[2025-01-23 00:19] VITALS: BP 113/77; PULSE 68; RESP 18; O2SAT 99
--- NOTE | 2025-01-23 00:25 | PC.NURSE ---
Put patient on monitor, took vital signs upon entering the room. Patient is NSR on the montior, had labs drawn in triage, and EKG done. Patient stating she currently has no chest pain that it is intermit. VS WNL. Call banerjee in reach, patient has boyfriend at bedside. Patient reports she was just laying down watching a movie when the pain started, but wanted to come in due to significant cardiac history in her family.
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
[2025-01-23 01:12] VITALS: BP 113/77; PULSE 68; RESP 18; TEMP 36.2; O2SAT 99
[2025-01-23 01:17] VITALS: BP 107/74; PULSE 74; RESP 18; O2SAT 100
== END 2025-01-23 01:14 | disposition home or self-care (01) ==
PROVIDERS: Emergency Provider Emergency Medicine
DX: R07.89 Other chest pain (principal)
CPT/HCPCS: 36415; 71046; 80053; 84484; 84702; 85025; 93005; 99283; 99285

== ENCOUNTER → 2025-01-22 22:15 | Outpatient (BNV) | payer MEDICAID, SELFPAY | PROVIDERS: Emergency Provider Emergency Medicine; Visit Provider Internal Medicine | DX: R07.9 Chest pain, unspecified (principal) | CPT/HCPCS: 93010 ==

== ENCOUNTER → 2025-01-22 22:28 | Outpatient (BNV) | payer MEDICAID, SELFPAY | PROVIDERS: Visit Provider Radiology Diagnostic Radiology | DX: R07.9 Chest pain, unspecified (principal) | CPT/HCPCS: 71046 ==

== ENCOUNTER 2025-01-27 13:09 | Emergency (ER) | payer MEDICAID, SELFPAY ==
--- NOTE | ~2025-01-27 | XR_ITS ---
EXAMINATION: XR HAND 3 OR MORE VIEWS RIGHT HISTORY: pain, injury COMPARISON: There are no prior studies available for comparison. FINDINGS: Three views of the right hand are submitted. Osseous mineralization is normal. There is no fracture or dislocation. The joint spaces are preserved. The soft tissues are unremarkable. XR/XR hand RT min 3V IMPRESSION: Unremarkable examination of the right hand. Electronically signed by: Tristan Arenas MD 01/27/2025 01:33 PM EDT
--- NOTE | 2025-01-27 13:14 | ED_ITS ---
HPI - General Adult General Chief complaint: Extremity Injury, Upper Stated complaint: r hand caught in car door Time Seen by Provider: 01/27/25 13:40 Source: patient Mode of arrival: ambulatory Limitations: no limitations History of Present Illness ED Provider: Dr. Divya Lucio HPI narrative: Patient comes to the emergency room complaining of pain in her right pinky finger. Patient states that she accidentally slammed the door on her finger. Patient denies other injuries, denies being on blood thinners. Related Data Previous Rx's ?Medication ?Instructions ?Recorded ondansetron 4 mg disintegrating 4 mg PO Q6H PRN nausea and 04/04/21 tablet vomiting #10 tabs nitrofurantoin 100 mg PO BID #10 caps 04/17 monohydrate/macrocrystals 100 mg capsule (Macrobid) phenazopyridine 100 mg tablet 100 mg PO TID PRN dysuri a 6 doses 04/17/21 (Pyridium) #6 tabs cyclobenzaprine 10 mg tablet 10 mg PO TID PRN muscle s pasm #20 11/27/21 tabs ibuprofen 600 mg tablet 600 mg PO Q6H PRN pain #30 t abs 11/27/21 cyclobenzaprine 10 mg tablet 10 mg PO TID PRN muscle s pasm #10 02/09/23 tabs ibuprofen 600 mg tablet 600 mg PO Q8H PRN fever or p ain 02/09/23 #30 tabs ondansetron 4 mg disintegrating 4 mg PO Q6H PRN nausea and 02/09/23 tablet vomiting #10 tabs nitrofurantoin 100 mg PO Q12H 7 days #14 ca ps 10/10/23 monohydrate/macrocrystals 100 mg capsule (Macrobid) nirmatrelvir 300 mg (150 mg See Rx Instructions PO .CO MPLEX 09/01/24 x2)-ritonavir 100 mg tablet,dose #30 ea pack (Paxlovid) ibuprofen 600 mg tablet 600 mg PO Q8H PRN pain #20 t abs 01/27/25 Allergies Allergy/AdvReac Type Severity Reaction Status Date / Time No Known Allergies (No Known Allergy Verified 01/27/25 13:18 Allergies*) Review of Systems Review of Systems: Constitutional : No Weight loss, No Fever, No Chills, No Night Sweats, No Fatigue, No Malaise ENT/Mouth : No Hearing loss, No Ear Pain, No Nasal Congestion, No Sinus Pain, No Hoarseness, No sore throat, No Rhinorrhea, No Swallowing Difficulty Eyes: No Eye Pain, No Swelling, No Redness, No Foreign Body, No Discharge, No Vision Changes Cardiovascular : No Chest Pain, No SOB, No Dyspnea on Exertion, No Orthopnea, No Edema, No Palpitations Respiratory : No Cough, No Sputum, No Wheezing, No Smoke Exposure, No Dyspnea Gastrointestinal : No Nausea, No Vomiting, No Diarrhea, No Constipation, No abdominal Pain, No Hematochezia, No Melena Genitourinary : no irregular bleeding, No Dysuria, No Urinary Frequency, No Hematuria, No Urinary Incontinence, No Urgency, No Flank Pain, No Urinary Flow Changes, No Hesitancy Musculoskeletal : No joint pain, No Myalgias, No Joint Swelling Skin : Complaining of pain in the right 5th finger, No Skin Lesions, No rash Neuro : No Weakness, No Numbness, No Paresthesias, No Loss of Consciousness, No Dizziness, No Headache Psych : No Anxiety/Panic, No Depression, No SI/HI/AH/VH, No Social Issues, Heme/Lymph: No Bruising, No Bleeding,No Lymphadenopathy Endocrine : No Polyuria, No Polydipsia, No Temperature Intolerance [facility] Past Medical History Medical History History of trauma Generalized anxiety disorder with panic attacks No known health problems No known health problems Surgical History History of cholecystectomy Family History Family History Mother No problems noted. Sister No problems noted. Brother No problems noted. Father Unknown family medical history Social History Social History Alcohol intake: never Patient Tobacco Use Status: Tobacco use Unknown Advance Directives: No Advance Directives Information Provided: Yes Do you have a plan to hurt others: No Plan Physical Exam ED Exam Exam: Appearance: Alert. Oriented X3. No acute distress. Eyes: Pupils equal, round and reactive to light. ENT: Pharynx normal. Neck: Normal inspection. Neck supple. No lymph nodes noted. No crepitus CVS: Normal heart rate and rhythm. Pulses normal. Normal S1 and S2 Respiratory: No respiratory distress. Breath sounds normal. No Wheezing. No rales Abdomen: Soft and nontender. No rigidity. No distention. Skin: Skin warm and dry. Normal skin color. Normal skin turgor. Extremities: No lower extremity edema. No Lacerations. No Rash. There is ecchymosis at the tip of the 5th digit of the right hand, there is no subungual hematoma present at this time, finger is slightly swollen. Well to flex and extend the finger Neuro: Oriented X 3. No motor deficit. No sensory deficit. Moving all extremities. No slurred speech. CN 2 through 12 grossly intact Psych: calm, cooperative, normal affect Vital Signs: Vital Signs - 24 hr 01/27/25 13:15 Temperature 98.2 F Pulse Rate 94 Respiratory Rate 18 Blood Pressure 112/78 Pulse Oximetry 94 Oxygen Delivery Method Room Air BMI result Body Mass Index 28.9 Course Course Course Narrative: Rapid medical examination performed in triage by Trina Cooper PA-C. Patient is a 29 year old assigned female at presenting to the emergency department with right hand pain. Patient states that she accidentally closed her car door on her right 5th finger. Detailed physical exam and review of systems are deferred to the eap clinician. Imaging ordered. Patient placed back in the waiting room pending room availability and results. Medical Decision Making Medical Decision Making [facility] Narrative: X-rays are negative for fracture, patient likely has a contusion. No subungual hematoma at this time Differential Diagnosis Differential Diagnoses: The differential diagnosis associated with the presentation includes (Finger contusion, dislocation, fracture, subungual hematoma) Independent Interpretation I performed an independent interpretation of an: Plain X-Ray Radiology Impression Discussion of test interpretation with radiology: I have reviewed the radiologist's reading. Radiologist Impression: Three views of the right hand are submitted. Osseous mineralization is normal. There is no fracture or dislocation. The joint spaces are preserved. The soft tissues are unremarkable. Discharge Plan Discharge Clinical Impression: Contusion of finger Patient Disposition: Home, Self-Care Instructions: Contusion in Adults (ED) Additional Instructions: Please follow-up with your primary care physician tomorrow. If you have any worsening or new symptoms, please return to the emergency room or call 911 Prescriptions: New ibuprofen 600 mg tablet 600 mg PO Q8H PRN (Reason: pain) Qty: 20 0RF No Action nitrofurantoin monohyd/m-cryst [Macrobid] 100 mg capsule 100 mg PO BID Qty: 10 0RF Rx Instructions: must administer with a meal/food phenazopyridine [Pyridium] 100 mg tablet 100 mg PO TID PRN (Reason: dysuria) Qty: 6 0RF ibuprofen 600 mg tablet 600 mg PO Q6H PRN (Reason: pain) Qty: 30 0RF cyclobenzaprine 10 mg tablet 10 mg PO TID PRN (Reason: muscle spasm) Qty: 20 0RF ondansetron 4 mg tablet,disintegrating 4 mg PO Q6H PRN (Reason: nausea and vomiting) Qty: 10 0RF ibuprofen 600 mg tablet 600 mg PO Q8H PRN (Reason: fever or pain) Qty: 30 0RF cyclobenzaprine 10 mg tablet 10 mg PO TID PRN (Reason: muscle spasm) Qty: 10 0RF ondansetron 4 mg tablet,disintegrating 4 mg PO Q6H PRN (Reason: nausea and vomiting) Qty: 10 0RF nitrofurantoin monohyd/m-cryst [Macrobid] 100 mg capsule 100 mg PO Q12H 7 Days Qty: 14 0RF Rx Instructions: must administer with a meal/food Paxlovid 300 mg (150 mg x 2)-100 mg tablets,dose pack See Rx Instructions .ROUTE .COMPLEX Qty: 30 0RF Rx Instructions: take TWO 150 mg tablets of nirmatrelvir with ONE 100 mg tablet of ritonavir twice daily for 5 days Print Language: Zambian
[2025-01-27 13:15] VITALS: BP 112/78; PULSE 94; RESP 18; TEMP 36.8; O2SAT 94; BMI 28.9
[2025-01-27 14:00] VITALS: BP 98/64; PULSE 69; RESP 15; TEMP 36.7; O2SAT 99
--- OUTSIDE RECORDS SUMMARY | 2025-01-27 14:42 | XMS_ITS | Encounter Summary ---
Author Organization [employer] Address [address] [place] [address] [address] [place] [address] Care Team Providers Care Electronics Department Manager Name Role Phone Fadi [facility] Primary Care Provider [phone] Reason for Visit * Reason Onset Date Comments Medication Question 09/24/2024 Encounter Details Date Type Department Care Team ([facility] Contact Info) Description 09/24/2024 Telephone [facility] [address], [place] [id number] Gillespie Kami [facility] [address] [place] [address] Medication Question Social History Tobacco Use Types Packs/Day Years Used Date Smoking Tobacco: Never Passive Smoke Exposure: Never Smokeless Tobacco: Never Depression Answer Date Recorded Patient Health Questionnaire-9 Score 9 03/03/2024 Patient Health Questionnaire-9 Score 9 03/03/2024 Last PHQ-9: Questionnaire Data Not on file 0 03/03/2024 Housing Stability Answer Date Recorded What is your housing situation today? I have sourav barajas 04/10/[address] you li ve. Do you have problems with any of the following? None of the above 04/10/2023 Food Insecurity Answer Date Recorded Within the past 12 months, y ou worried that your food would run out before you got money to buy more: Sometimes True 2023 Within the past 12 months,th e food you bought just didn't last and you didn't have enough money to get more: Sometimes True 04/28/2024 Transportation Answer Date Recorded In the past 12 months, has l ack of transportation kept you from medical appts, meetings, work or from getting things needed for daily living? No 04/10/2023 Utilities Answer Date Recorded In the past 12 months, has t he electric, gas, oil or water company threatened to shut off services in your home? No 04/10/2023 Depression Answer Date Recorded Patient Health Questionnaire-2 Score 4 03/03/2024 Internet Access Answer Date Recorded Internet Access Q1 Yes 04/28/2024 Internet Access Q2 Not on file 04/28/2024 Comments Yes Sex and Gender Information Value Date Recorded Sex Assigned at Female 04/17/2022 10:16 AM EDT Legal Sex Female 10:16 AM EDT Gender Identity Female 10/27/2022 11:49 AM EDT Sexual Orientation Bisexual 10/27/2022 11 :49 AM EDT documented as of this encounter Miscellaneous Notes * Telephone Encounter - Neda Cruz RN - 09/24/2024 1:33 PM EDT TC placed to patient [phone] regarding below message. RN informed patient she has to make a appt with a provider to discuss control options. Pt was scheduled for 09/29/24 at 1130 with Sharla Gomez the aircraft seat upholsterer. Patient also informed RN that she is liiking for a prescription Retin A 0.025% gel for her acne. PCP please review. Please advise if agreeable. PT to F/U PRN. * Telephone Encounter - Naheed Stevens - 09/24/2024 12:57 PM EDT Tc from pt requesting control med. documented in this encounter Plan of Treatment Upcoming Encounters Date Type Department Care Team ([facility] st Contact Info) Description 02/03/2025 3:30 PM EDT Procedure Visit [address] [address] Sharla Gomez CNM [address] [place] [address] documented as of this encounter Visit Diagnoses Not on filedocumented in this encounter Additional Health Concerns Assessment Noted Time PHQ-9 Depression Total Score: 9 03/03/20 24 11:13 AM EDT documented as of this encounter Care Teams Electronics Department Manager Relationship Specialty Start Date End Date Kami Aponte FNP [address] [place] [address] PCP - General Family Medicine 07/18/23 Mireille Patricia Soil Conservation Technician 07/14/24 documented as of this encounter
--- OUTSIDE RECORDS SUMMARY | 2025-01-27 14:43 | XMS_ITS | Clinical Summary ---
Author Organization [facility] Address [address] [place] [address] Care Team Providers Care Master Of Ceremonies Name Role Phone Patient, Has No Pcp Or Ref Primary Care Provider Unavailable Allergies No known active allergies Social History Tobacco Use Types Packs/Day Years Used Date Smoking Tobacco: Never Smokeless Tobacco: Never Alcohol Use Standard Drinks/Week Comments Not Currently 0 (1 standard drink = 0.6 oz pur e alcohol) Comments Unknown Sex and Gender Information Value Date Recorded Sex Assigned at Not on file Legal Sex Female 8:16 PM EDT Gender Identity Not on file Sexual Orientation Not on file Last Filed Vital Signs Vital Sign Reading Time Taken Comments Blood Pressure 116/91 02/08/2021 12:58 AM EDT Pulse 78 02/08/2021 12:58 AM EDT Temperature 36.7 C (98.1 F) 02/07/2021 8:26 PM EDT Respiratory Rate 15 02/08/2021 12:58 AM EDT Oxygen Saturation 98% 02/08/2021 12:58 AM EDT Inhaled Oxygen Concentration - - Weight - - Height - - Body Mass Index - - Plan of Treatment Not on file Care Teams Master Of Ceremonies Relationship Specialty Start Date End Date Patient, Has No Pcp Or Ref DO NOT EDIT THIS RECORD VIA PROVIDER ON THE FLY PCP - General System Analyst 02/07/21
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
[2025-01-27 14:52] VITALS: BP 98/64; PULSE 69; RESP 15; TEMP 36.7; O2SAT 99
== END 2025-01-27 14:53 | disposition home or self-care (01) ==
PROVIDERS: Emergency Provider Emergency Medicine; PCP Registered Nurse
DX: S60.051A Contusion of right little finger without damage to nail, initial encounter (principal); W23.0XXA Caught, crushed, jammed, or pinched between moving objects, initial encounter; Y93.89 Activity, other specified; Y92.810 Car as the place of occurrence of the external cause; Y99.8 Other external cause status
CPT/HCPCS: 73130; 99283

== ENCOUNTER → 2025-01-27 13:16 | Outpatient (BNV) | payer MEDICAID, SELFPAY | PROVIDERS: Emergency Provider Emergency Medicine; PCP Registered Nurse; Visit Provider Radiology Diagnostic Radiology | DX: M79.641 Pain in right hand (principal) | CPT/HCPCS: 73130 ==

== ENCOUNTER 2025-02-11 09:27 | Emergency (ER) | payer MEDICAID, SELFPAY ==
[2025-02-11 09:29] VITALS: BP 117/57; PULSE 92; RESP 18; TEMP 36.7; O2SAT 98; BMI 28.5
[2025-02-11 09:43] LABS: MANUAL DIFF FLAG NO
[2025-02-11 09:49] LABS: Hematocrit 39.0 % (37.0-47.0); Hemoglobin 12.9 g/dl (12.0-16.0); Imm Gran Abs Auto 0.03 X10*3/uL (0.00-0.03); Imm Gran Pct Auto 0.4 % (0.0-0.4); Lymphocytes Absolute Auto 1.0 X10*3/uL (1.2-4.9); Mean Corpuscular HGB Conc 33.1 g/dl (31.0-35.0); Mean Corpuscular Hemoglobin 27.1 pg (27.0-33.0); Mean Corpuscular Volume 81.9 fL (80.0-98.0); NRBC Abs Auto 0.000 X10*3/uL (0.0-0.012); NRBC Pct Auto 0.0 /100WBC (0.0-0.2); Platelet Count 230 X10*3/uL (160-400); Red Blood Count 4.76 X10*6/uL (4.20-5.50); White Blood Count 7.7 X10*3/uL (4.8-10.8)
[2025-02-11 10:06] LABS: Alanine Aminotransferase 28 U/L (0-31); Albumin Level 4.6 g/dL (3.5-5.0); Alkaline Phosphatase 69 U/L (39-117); Anion Gap 11 (12-20); Aspartate Amino Transferase 26 U/L (5-31); Blood Urea Nitrogen 8 mg/dL (9-16); Calcium 9.4 mg/dL (8.4-10.2); Carbon Dioxide 27 mmol/L (22-29); Chloride 105 mmol/L (96-108); Creatinine Clr Calc Pharmacy 110.0; Estimated Glomerular Filt Rate > 60; Potassium 4.0 mmol/L (3.3-5.1); Sodium 139 mmol/L (135-145); Total Protein 7.5 g/dL (6.5-8.0)
[2025-02-11 10:23] LABS: Appearance Urine Cloudy; Glucose Urine UA Negative (Negative); PH 5.5 (5.0-9.0); Specific Gravity - Urine 1.025 (1.005-1.025); UMIC TRIGGER UACC YES
[2025-02-11 10:35] LABS: UACC Culture Trigger YES
--- NOTE | 2025-02-11 11:07 | ED_ITS ---
HPI - General Adult General Chief complaint: General Medical Stated complaint: Blood in Urine Kidney Pain Time Seen by Provider: 02/11/25 11:00 Source: patient and old records reviewed Mode of arrival: ambulatory Limitations: no limitations History of Present Illness ED Provider: EMMA RITTER narrative: 29 yo female with PMH of kidney issues but states she isn't sure what that means was on medications but not for years and no prior surgery. She reports 2 days of R flank and back pain now with hematuria. She has not been eating much but no fevers, diarrhea, vomiting. She denies any menses. She has pain now in R lower abdomen as well. MD complaint: hematuria, flank pain Onset (ago): day(s) (2) Location: abdomen Radiation: abdomen Severity: moderate Quality: stabbing Pain Consistency: constant Relieving factors: movement Exacerbating factors: none Associated symptoms: loss of appetite Treatments prior to arrival: none Related Data Previous Rx's ?Medication ?Instructions ?Recorded ondansetron 4 mg disintegrating 4 mg PO Q6H PRN nausea and 04/04/21 tablet vomiting #10 tabs nitrofurantoin 100 mg PO BID #10 caps 04/17 monohydrate/macrocrystals 100 mg capsule (Macrobid) phenazopyridine 100 mg tablet 100 mg PO TID PRN dysuri a 6 doses 04/17/21 (Pyridium) #6 tabs cyclobenzaprine 10 mg tablet 10 mg PO TID PRN muscle s pasm #20 11/27/21 tabs ibuprofen 600 mg tablet 600 mg PO Q6H PRN pain #30 t abs 11/27/21 cyclobenzaprine 10 mg tablet 10 mg PO TID PRN muscle s pasm #10 02/09/23 tabs ibuprofen 600 mg tablet 600 mg PO Q8H PRN fever or p ain 02/09/23 #30 tabs ondansetron 4 mg disintegrating 4 mg PO Q6H PRN nausea and 02/09/23 tablet vomiting #10 tabs nitrofurantoin 100 mg PO Q12H 7 days #14 ca ps 10/10/23 monohydrate/macrocrystals 100 mg capsule (Macrobid) nirmatrelvir 300 mg (150 mg See Rx Instructions PO .CO MPLEX 09/01/24 x2)-ritonavir 100 mg tablet,dose #30 ea pack (Paxlovid) ibuprofen 600 mg tablet 600 mg PO Q8H PRN pain #20 t abs 01/27/25 cefuroxime axetil 500 mg tablet 500 mg PO BID 7 days # 14 tabs 02/11/25 Allergies Allergy/AdvReac Type Severity Reaction Status Date / Time No Known Allergies (No Known Allergy Verified 02/11/25 09:32 Allergies*) Review of Systems 2 Review of Systems: Constitutional : No Fever, No Chills ENT/Mouth : No sore throat Eyes: No Eye Pain, No Swelling, No Redness Cardiovascular : No Chest Pain, No SOB Respiratory : No Cough, No Sputum, No Wheezing Gastrointestinal : positive Nausea, no Vomiting, No Diarrhea, positive abdominal pain Genitourinary : positive Dysuria, positive urinary frequency, positive Hematuria, positive Flank Pain Musculoskeletal : No joint pain, No Myalgias Skin : No Skin Lesions, No rash Neuro : No Weakness, No Numbness, No Headache All other systems reviewed and are negative [facility] Past Medical History Attestation statement: The following information was validated with the patient. Source: old records reviewed Medical History History of trauma Generalized anxiety disorder with panic attacks No known health problems No known health problems Surgical History History of cholecystectomy Family History Family History Mother No problems noted. Sister No problems noted. Brother No problems noted. Father Unknown family medical history Social History Social History Alcohol intake: never Patient Tobacco Use Status: Tobacco use Unknown Smoked in Last 30 Days: No Use of substances other than those prescribed or required for medical reasons: No Advance Directives: No Advance Directives Information Provided: Yes Do you have a plan to hurt others: No Plan Patient : No Physical Exam ED Vital Signs: Vital Signs - 24 hr 02/11/25 09:29 Temperature 98.1 F Pulse Rate 92 Respiratory Rate 18 Blood Pressure 117/57 L Pulse Oximetry 98 Oxygen Delivery Method Room Air BMI result Body Mass Index 28.5 Appearance: Alert. Oriented X3. No acute distress. Eyes: Pupils equal, round and reactive to light. ENT: Pharynx normal. Neck: Normal inspection. Neck supple. CVS: Normal heart rate and rhythm. Pulses normal. Respiratory: No respiratory distress. Breath sounds normal. Abdomen: Soft and moderate ttp in RLQ pain R CVA ttp moderate Skin: Skin warm and dry. Normal skin color. Normal skin turgor. Extremities: No lower extremity edema. Neuro: Oriented X 3. No motor deficit. No sensory deficit. CN2-12 intact Medical Decision Making Medical Decision Making [facility] Narrative: 29 yo female with no known sig PMH here with c/o R flank pain and hematuria. She has RLQ pain on exam which is more than I would anticipate. At this time I am going to obtain basic labs, UA, hcg, CT scan for renal colic, appendicitis, pyelo, mass. She will be given fluids and toradol. called to bedside by RN patient is refusing further care. Had friend on phone to witness conversation. She still plans to leave [facility] despite me asking her to stay and discussing my concerns. Differential Diagnosis Differential Diagnoses: The differential diagnosis associated with the presentation includes renal colic, cystitis, pyelo, appendicitis Admission/Observation Consideration of admission/observation: Escalation of care including admission/observation considered refuses work up no issues and discussed what my concerns were and that they could pose serious risk she is able to repeat my concerns back to me but still refuses and wants to leave [facility]. She understands the conversation. She will be DC with possible cystitis / pyelo medications Lab Data [facility] Lab Attestation statement: I reviewed the patient's lab results. 02/11/25 09:39 02/11/25 09:39 Labs: Lab Results 02/11/25 02/11/25 Range/Units 09:39 10:15 WBC 7.7 (4.8-10.8) X10*3/uL RBC 4.76 (4.20-5.50) X10*6/uL Hgb 12.9 (12.0-16.0) g/dl Hct 39.0 (37.0-47.0) % MCV 81.9 (80.0-98.0) fL MCH 27.1 (27.0-33.0) pg MCHC 33.1 (31.0-35.0) g/dl RDW 13.4 (11.0-16.0) % Plt Count 230 (160-400) X10*3/uL MPV 10.7 (9.4-12.3) fL Immature Gran % (Auto) 0.4 (0.0-0.4) % Neut % (Auto) 78.2 H (45-73) % Lymph % (Auto) 12.5 L (20-40) % [place] % (Auto) 5.2 (2-11) % Eos % (Auto) 3.2 (0-4) % Baso % (Auto) 0.5 (0-2) % Lymph # (Auto) 1.0 L (1.2-4.9) X10*3/uL [place] # (Auto) 0.4 (0.1-1.2) X10*3/uL Eos # (Auto) 0.3 (0.0-0.4) X10*3/uL Baso # (Auto) 0.0 (0.0-0.2) X10*3/uL Abs Immat Gran (auto) 0.03 (0.00-0.03) X10*3/uL Absolute Neuts (auto) 6.0 (2.0-8.3) x10*3/uL Absolute Nucleated RBC 0.000 (0.0-0.012) X10*3/uL Nucleated RBC % (auto) 0.0 (0.0-0.2) /100WBC Sodium 139 (135-145) mmol/L Potassium 4.0 (3.3-5.1) mmol/L Chloride 105 (96-108) mmol/L Carbon Dioxide 27 (22-29) mmol/L Anion Gap 11 L (12-20) BUN 8 L (9-16) mg/dL Creatinine 0.68 (0.5-1.4) mg/dL Estim Creat Clear Calc 110.0 Estimated GFR > 60 Random Glucose 95 (60-115) mg/dL Calcium 9.4 (8.4-10.2) mg/dL Total Bilirubin 0.4 (0.0-1.0) mg/dL AST 26 (5-31) U/L ALT 28 (0-31) U/L Alkaline Phosphatase 69 (39-117) U/L Total Protein 7.5 (6.5-8.0) g/dL Albumin 4.6 (3.5-5.0) g/dL Urine Color Yellow Urine Appearance Cloudy Urine pH 5.5 (5.0-9.0) Ur Specific [place] 1.025 (1.005-1.025) Urine Protein 300 (3+) H (Neg-Trace) mg/dL Urine Glucose (UA) Negative (Negative) mg/dL Urine Ketones Trace (Negative) mg/dL Urine Blood Large (3+) H (Negative) Urine Nitrite Negative (Negative) Ur Leukocyte Esterase Small (1+) H (Negative) Urine RBC 11-20 H (0-2) /HPF Urine WBC 6-10 (0-5) /HPF Ur Squamous Epith Cells 6-10 (0-2) /HPF Urine Bacteria 2+ (None Seen) Hyaline Casts 0-2 (0-2) /LPF Urine Test NEGATIVE (NEGATIVE) External Record Review External record reviewed: Outpatient record and Prior outpatient labs Tests considered The following testing was considered but not selected: CT scan/US but she refused and signed out AMA Prescription Management I considered prescription management with: Antibiotic Discharge Plan Discharge Clinical Impression: Acute right flank pain Hematuria Qualifiers: Hematuria type: gross Qualified Code(s): R31.0 - Gross hematuria Patient Disposition: Left Against Medical Advice Instructions: Hematuria (ED), Flank Pain (ED), Against Medical Advice (ED) Additional Instructions: your labs were reassuring your urine showed some inflammation as well as small amount of blood we wanted to get a CT scan of the abdomen/flank to evaluate for stone, appendicitis, kidney infection but you refused you are welcome to come back at any time if you change your mind Prescriptions: New cefuroxime axetil 500 mg tablet 500 mg PO BID 7 Days Qty: 14 0RF No Action nitrofurantoin monohyd/m-cryst [Macrobid] 100 mg capsule 100 mg PO BID Qty: 10 0RF Rx Instructions: must administer with a meal/food phenazopyridine [Pyridium] 100 mg tablet 100 mg PO TID PRN (Reason: dysuria) Qty: 6 0RF ibuprofen 600 mg tablet 600 mg PO Q6H PRN (Reason: pain) Qty: 30 0RF cyclobenzaprine 10 mg tablet 10 mg PO TID PRN (Reason: muscle spasm) Qty: 20 0RF ondansetron 4 mg tablet,disintegrating 4 mg PO Q6H PRN (Reason: nausea and vomiting) Qty: 10 0RF ibuprofen 600 mg tablet 600 mg PO Q8H PRN (Reason: fever or pain) Qty: 30 0RF cyclobenzaprine 10 mg tablet 10 mg PO TID PRN (Reason: muscle spasm) Qty: 10 0RF ondansetron 4 mg tablet,disintegrating 4 mg PO Q6H PRN (Reason: nausea and vomiting) Qty: 10 0RF ibuprofen 600 mg tablet 600 mg PO Q8H PRN (Reason: pain) Qty: 20 0RF nitrofurantoin monohyd/m-cryst [Macrobid] 100 mg capsule 100 mg PO Q12H 7 Days Qty: 14 0RF Rx Instructions: must administer with a meal/food Paxlovid 300 mg (150 mg x 2)-100 mg tablets,dose pack See Rx Instructions .ROUTE .COMPLEX Qty: 30 0RF Rx Instructions: take TWO 150 mg tablets of nirmatrelvir with ONE 100 mg tablet of ritonavir twice daily for 5 days Print Language: Ukrainian
[2025-02-11 11:15] LABS: UPreg QC Valid YES
--- OUTSIDE RECORDS SUMMARY | 2025-02-11 11:24 | XMS_ITS | Encounter Summary ---
Author Organization [employer] Address [address] [place] [address] 7 [place] [address] Care Team Providers Care Ell Teacher Name Role Phone Angelique Kim Primary Care Provider [phone] Kami Aponte Primary Care Provider [phone] Encounter Details Date Type Department Care Team (Late st Contact Info) Description 02/27/2023 Orders Only [facility]S [address] [place], [place] [phone] Angelique Kim FNP [address] [place] [address] Social History Tobacco Use Types Packs/Day Years Used Date Smoking Tobacco: Never Smokeless Tobacco: Never Comments No Sex and Gender Information Value Date Recorded Sex Assigned at Female 04/17/2022 10:16 AM EDT Legal Sex Female 10:16 AM EDT Gender Identity Female 10/27/2022 11:49 AM EDT Sexual Orientation Bisexual 10/27/2022 11 :49 AM EDT documented as of this encounter Plan of Treatment Not on file documented as of this encounter Visit Diagnoses Not on filedocumented in this encounter Care Teams Ell Teacher Relationship Specialty Start Date End Date Angelique Kim FNP [address] [place], [place] [phone] PCP - General Family Medicine 02/06/23 07/17/23 Kami Aponte FNP [address] [place] [address] PCP - General Family Medicine 07/18/23 Mireille Patricia Magnetic Observer 07/14/24 documented as of this encounter
--- OUTSIDE RECORDS SUMMARY | 2025-02-11 11:24 | XMS_ITS | Encounter Summary ---
Author Organization [employer] Address [address] [facility] 7 [place] [address] Care Team Providers Care Instructional Assistant Name Role Phone Angelique Kim [facility] Primary Care Provider [phone] [facility] Primary Care Provider [phone] Encounter Details Date Type Department Care Team ([facility] st Contact Info) Description 05/25/2023 Orders Only [facility] MEDICINE [address] [place], [place] [phone] [facility] [address] [place] [address] Social History Tobacco Use Types Packs/Day Years Used Date Smoking Tobacco: Never Smokeless Tobacco: Never Depression Answer Date Recorded Patient Health Questionnaire-9 Score 0 03/05/2023 Housing Stability Answer Date Recorded What is your housing situation today? I have sourav barajas 04/10/[address] you li ve. Do you have problems with any of the following? None of the above 04/10/2023 Food Insecurity Answer Date Recorded Within the past 12 months, y ou worried that your food would run out before you got money to buy more: Never True 04/10/2023 Within the past 12 months,th e food you bought just didn't last and you didn't have enough money to get more: Never True Transportation Answer Date Recorded In the past [...] Answer Date Recorded Patient Health Questionnaire-2 Score 0 03/05/2023 Comments No Sex and Gender Information Value [...] Assessment Noted Time PHQ-9 Depression Total Score: 0 03/05/20 23 9:28 AM EDT documented as of this encounter Care Teams Instructional Assistant Relationship Specialty Start Date End Date Angelique Kim FNP [address] [place] [address] PCP - General Family Medicine 02/06/23 07/17/23 Angel FireKami FNP [address] [place] [address] PCP - General Family Medicine 07/18/23 Mireille Patricia Other Spatial Scientist 07/14/24 documented as of this encounter
--- OUTSIDE RECORDS SUMMARY | 2025-02-11 11:24 | XMS_ITS | Encounter Summary ---
Author Organization [employer] Address [address] [place] [address] 7 [place] [address] Care Team Providers Care Restorative Rehab Aide Name Role Phone Fadi [facility] Primary Care Provider [phone] Angelique Kim [facility] Primary Care Provider [phone] Remington [facility] Primary Care Provider [phone] Reason for Visit * Reason Onset Date Comments Results 11/21/2022 Encounter Details Date Type Department Care Team ([facility] st Contact Info) Description 11/21/2022 Telephone [facility] MEDICINE [address] [place], [place] [phone] Remington Kami [facility] [address] [place], [place] [phone] Results Social History Tobacco Use Types Packs/Day Years Used Date Smoking Tobacco: Never Smokeless Tobacco: Never Comments No Sex and Gender Information Value Date Recorded Sex Assigned at Female 04/17/2022 10:16 AM EDT Legal Sex Female 10:16 AM EDT Gender Identity Female 10/27/2022 11:49 AM EDT Sexual Orientation Bisexual 10/27/2022 11 :49 AM EDT COVID-19 Exposure Response Date Recorded In the last 10 days, have yo u been in contact with someone who was confirmed or suspected to have Coronavirus/COVID-19? No / Unsure 11/20/2022 12:55 PM EDT documented as of this encounter Miscellaneous Notes * Telephone Encounter - Isabelle Oden RN - 11/23/2022 1:55 PM EDT TC X1 to pt regarding message below. Pt informed of normal/negative results. Pt verbalized understanding and agrees with plan. * Telephone Encounter - Drea Manjarrez - 11/22/2022 2:36 PM EDT Tc from pt calling in regards to message above. Please contact pt at [phone] * Telephone Encounter - Drea Manjarrez - 11/21/2022 4:00 PM EDT Tc from pt requesting a call back in regards to lab results. Please contact pt at [phone] documented in this encounter Plan of Treatment Not on file documented as of this encounter Visit Diagnoses Not on filedocumented in this encounter Care Teams Restorative Rehab Aide Relationship Specialty Start Date End Date Kami Aponte FNP [address] [place] [address] PCP - General Family Medicine 08/15/22 02/05/23 Angelique Kim FNP [address] [place] [address] PCP - General Family Medicine 02/06/23 07/17/23 FadiKami FNP [address] [place] [address] PCP - General Family Medicine 07/18/23 Mireille Patricia Neck Cutter 07/14/24 documented as of this encounter
--- OUTSIDE RECORDS SUMMARY | 2025-02-11 11:24 | XMS_ITS | Encounter Summary ---
Author Organization [employer] Address [address] [place] [address] 7 [place] [address] Care Team Providers Care Forming Yardage Control Operator Name Role Phone Fadi [facility] Primary Care Provider [phone] Reason for Visit * Reason Onset Date Comments Medication Question 09/24/2024 Encounter Details Date Type Department Care Team ([facility] Contact Info) Description 09/24/2024 Telephone [facility] MEDICINE [address] [place], [place] [phone] Scotia Kami [facility] [address] [place] [address] Medication Question Social History Tobacco Use Types [...] 1:33 PM EDT TC placed to patient [phone] regarding below message. RN informed patient she has to make a appt with a provider to discuss control options. Pt was scheduled for 09/29/24 at 1130 with Sharla Gomez the computer operations technician. Patient also informed RN that she is liiking for a prescription Retin A 0.025% gel for her acne. PCP please review. Please advise if agreeable. PT to F/U PRN. * Telephone Encounter - Naheed Stevnes - 09/24/2024 12:57 PM EDT Tc from pt requesting control med. documented in this encounter Plan of Treatment Not on file documented as of this encounter Visit Diagnoses Not on filedocumented in this encounter Additional Health Concerns Assessment Noted Time PHQ-9 Depression Total Score: 9 03/03/20 24 11:13 AM EDT documented as of this encounter Care Teams Forming Yardage Control Operator Relationship Specialty Start Date End Date Scotia ROXY Mcclure [address] [place] [address] PCP - General Family Medicine 07/18/23 Mireille Patricia Mgmt Specialist 07/14/24 documented as of this encounter
--- OUTSIDE RECORDS SUMMARY | 2025-02-11 11:24 | XMS_ITS | Clinical Summary ---
Author Organization [facility] [address] [facility] Address [address] [place] [address] Phone Care Team Providers Care Assembler Mechanical Ordnance Name Role Phone Physician, No Pcp Primary [...] (07/07/2024): 3 hr GTT WNL Attempted suicide ([facility] V24, [facility] V28) Major depressive disorder 06/04/2024 Family history of Down syndrome 06/04/2024 Overview (06/04/2024): aunt Encounter for supervision of normal , a ntepartum 05/12/2024 Overview (09/12/2024): 1. [facility] site: [address] 2. Delivery site: [facility] 3. Mobile Mommas: No 4. Dating criteria: LMP confirmed by 1st trimester ultrasound 5. Blood type: AB pos 6. 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 GBS: Positive urine Date: 02/2024 7. FOB name: Janeth Stevens [phone] 8. Plans A. Epidural or other pain [...] disorder (ADHD), combined type 03/05/2023 Bipolar disorder ([facility] V24, [facility] V28) 02/16 Overview (09/12/2024): Psychiatric Hx-chart with [...] Visual impairment 08/12/2012 Overview (06/04/2024): Optometry-visit with [facility] 09/14/23 with c/o visual disturbances [...] / suicide attempts / inpatient admissions at [facility] in the past-2012. 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 pt admitted x 3 Suicide attempt ([facility] V24 , [facility] V28) 2012 DX:Suicide attempt ([facility]); CO MMENT: OD on pills. pt has had multiple attempts Adhd 2012 DX:ADHD; COMMENT : dx at [facility] Maternal varicella, non-immune 2018 D X:Maternal varicella, [...] care for your loved ones. For example, child protection specialist or elderly care for an older adult? [...] 08/15/2024 11 :35 AM EST Obstetrics History * This document contains information received from the source organization and may not represent a complete record from that organization. Para Term AB IAB SAB Ectopic Multiple Livin g Live Births 5 4 4 0 4 4 Date Outcome GA Total Labor Labor/2nd/3rd Weight Sex Type Anes PTL Ghada A1 A5 Name Clin 2014 Term 41w 2d 3459 g (122 oz) M Vag-S pont Epidur al N Livin g gioale xis Complications:None Delivery Location:[facility] Comments:2 vessel cord , induced - post dates 7 2017 Term 41w 4d 3629 g (128 oz) F Vag-S pont Epidur al,Loc al N Livin g Julianna C Smidy Complications:None Delivery Location:[facility] Comments:induced - pos t dates 2020 Term F CS-LT ranv Livin g 2024 Term 39w 0d 0h 02m 0h 02m 3130 g (110.4 oz) M CS-LT ranv Spinal N Livin g 8 9 Anson sullivan MD Complications:None Delivery Location:[facility] Last Filed Vital Signs Vital [...] Due Date Last Done Comments COVID-19 Vaccine (3 - 2024-25 season) 2024 01/03/2021, 12/13/2020 Depression Screening 06/18/2024 [...] LAB CHEMISTRY METHOD 07/07/2024 12:07 PM EST [facility] Blood Venous blood specimen / Unknown Venipuncture / Unknown 07/07/2024 9:26 AM EST 07/07/2024 9:26 AM EST us Marilynn Chavez [facility] BLOOD ORDERABLES Final Res ult Performing Organization Address [facility] Co de Phone Number [facility] [address] [place] [address], [place] [phone] * HIV 1,2 antibody, p24 antigen with reflex to differentiation (07/07/2024 9:26 AM EST) Pathologist [facility] HIV Combo AB/AG Negative Negative LAB CHEMISTRY METHOD 07/07/2024 12:07 PM EST [facility] Blood Venous blood specimen / Unknown Venipuncture / Unknown 07/07/2024 9:26 AM EST 07/07/2024 9:26 AM EST Narrative [facility] - 07/07/2024 12:07 PM EST This assay is a 4th generation assay allowing for earlier detection of HIV infection by detecting the presence of the HIV-1 p24 antigen as well as the traditional antibodies to HIV type 1 (including group O) and type 2. Use of a 4th generation assay is the current CDC recommendation for HIV screening. us Marilynn Chavez [facility] BLOOD ORDERABLES Final Res ult Performing Organization Address [facility]/ZIP Co de Phone Number [facility] [address] [place] [address], * Cervical Cancer Screening: HPV (03/13/2024) Cervical Cancer Screening: HPV No interpreta tion,abstr acted us Historical Provider MD HEALTH MAINTENANCE Final Result [...] currently active code status orders. Care Teams Assembler Mechanical Ordnance Relationship Specialty Start Date End Date Physician, No Pcp PCP - General 06/03/24
--- OUTSIDE RECORDS SUMMARY | 2025-02-11 11:24 | XMS_ITS | Clinical Summary ---
Author Organization [facility] Address [address] [place] [address] Care Team Providers Care Pulper Operator Name Role Phone Patient, Has No Pcp [...] of Treatment Not on file Care Teams Pulper Operator Relationship Specialty Start Date End Date Patient, Has No Pcp Or Ref DO NOT EDIT THIS RECORD VIA PROVIDER ON THE FLY PCP - General Student Support Counselor 02/07/21
--- OUTSIDE RECORDS SUMMARY | 2025-02-11 11:24 | XMS_ITS | Encounter Summary ---
Author Organization [employer] Address [address] [place] [address] 7 [place] [address] Care Team Providers Care Family Resource Management Professor Name Role Phone Kami Aponte CAN INTAKE WORKER Primary Care Provider [phone] Reason for Visit * Reason Comments Med Refill Encounter Details Date Type Department Care Team ([facility] Contact Info) Description 07/13/2024 Refill [facility] MEDICINE [address], [place] [phone] Sharla Gomez CNM [address] [place] [address] Encounter for procreative management, unspecified Social History Tobacco Use Types Packs/Day Years [...] documented as of this encounter Visit Diagnoses Diagnosis Encounter for procreative management, unspecified documented in this encounter Additional Health Concerns Assessment Noted Time PHQ-9 Depression Total Score: 9 03/03/20 24 11:13 AM EDT documented as of this encounter Care Teams Family Resource Management Professor Relationship Specialty Start Date End Date Kami Aponte FNP [address] [place] [phone] PCP - General Family Medicine 07/18/23 Mireille Patricia Dairy Laboratory Technician 07/14/24 documented as of this encounter
--- OUTSIDE RECORDS SUMMARY | 2025-02-11 11:24 | XMS_ITS | Encounter Summary ---
Author Organization [employer] Address [address] [facility] [address]t [place] [address] Care Team Providers Care Activity Assistant Name Role Phone Kami Aponte VETERINARY VIRUS SERUM INSPECTOR Primary Care Provider [phone] Encounter Details Date Type Department Care Team ([facility] st Contact Info) Description 02/11/2025 Orders Only GENERIC EXTERNAL DATA DEPARTMENT Provider, Generic External Data Social History Tobacco Use Types Packs/Day Years [...] Access Q2 Not on file 04/28/2024 Comments No Sex and Gender Information Value Date Recorded Sex Assigned at Female 04/17/2022 10:16 AM EDT Legal Sex Female 10:16 AM EDT Gender Identity Female 10/27/2022 11:49 AM EDT Sexual Orientation Bisexual 10/27/2022 11 :49 AM EDT documented as of this encounter Plan of Treatment Not on file documented as of this encounter Procedures Procedure Name Priority Date/Time Associated Diagnosis Comments URINALYSIS, COMPLETE, WITH REFLEX TO CULTURE Routine 02/11/2025 10:15 AM EDT HCG, QL, URINE Routine 02/11/2025 10:15 AM EDT URINALYSIS WITH REFLEX MICROSCOPIC Routine 02/11/2025 10:15 AM EDT CBC WITH AUTO DIFFERENTIAL Routine 02/11/2025 9:39 AM EDT COMPREHENSIVE METABOLIC PANEL Routine 02/11/2025 9:39 AM EDT documented in this encounter Results * HCG, Qualitative, Urine (02/11/2025 10:15 AM EDT) Urine NEGATIVE NEGATIVE [facility] Comment:This test was develo ped to detect early . Falsenegative results may occur after the 5th - 7th week ofpregnancy when using this test method. If clinicallyindicated, consider a serum hCG. 02/11/2025 10:1 5 AM EDT 02/11/2025 11:10 AM EDT us Generic External Data Provider LAB URINE ORDERAB LES Final Result [facility] [address] [place] [phone] * (ABNORMAL) Urinalysis, Complete, with Reflex to Culture (02/11/2025 10:15 AM EDT) Color Urine Yellow [facility] Appearance Urine Cloudy [facility] PH 5.5 5.0 - 9.0 [facility] Glucose Urine UA Negative Negative mg/dL [facility] Urine Blood Large (3+)(A) Negative [facility] Specific [place] - Urine 1.025 1.005 - 1.025 [facility] Urine Protein 300 (3+)(A) Neg-Trace mg/dL [facility] Urine Ketones Trace Negative mg/dL [facility] Nitrite Urine Negative Negative [facility] Leukocyte Esterase Urine Small (1+)(A) Negative [facility] RBC Urine 11-20(A) 0 - 2 /HPF [facility] Urine WBC 6-10 0 - 5 /HPF [facility] Urine Squamous Epithelial Cell 6-10 0 - 2 /HPF [facility] Urine Bacteria 2+ None Seen [facility] Hyaline Casts, Urine 0-2 0 - 2 /LPF [facility] 02/11/2025 10:1 5 AM EDT 02/11/2025 10:19 AM EDT Narrative [facility] - 02/11/2025 10:35 AM EDT Urine, Clean Catch us Generic External Data Provider LAB URINE ORDERAB LES Final Result Performing Organization Address City/State/[facility] Co de Phone Number [facility] [address] [place] [phone] * (ABNORMAL) Urinalysis w/reflex microscopic (02/11/2025 10:15 AM EDT) Color Urine Yellow [facility] Appearance Urine Cloudy [facility] PH 5.5 5.0 - 9.0 [facility] Glucose Urine UA Negative Negative mg/dL [facility] Urine Blood Large (3+)(A) Negative [facility] Specific [place] - Urine 1.025 1.005 - 1.025 [facility] Urine Protein 300 (3+)(A) Neg-Trace mg/dL [facility] Urine Ketones Trace Negative mg/dL [facility] Nitrite Urine Negative Negative [facility] Leukocyte Esterase Urine Small (1+)(A) Negative [facility] 02/11/2025 10:1 5 AM EDT 02/11/2025 10:19 AM EDT Narrative [facility] - 02/11/2025 10:24 AM EDT Urine, Clean Catch us Generic External Data Provider LAB URINE ORDERAB LES Final Result [facility] [address] [place] [phone] * (ABNORMAL) Comprehensive Metabolic Panel (02/11/2025 9:39 AM EDT) Sodium 139 135 - 145 mmol/L [facility] Potassium 4.0 3.3 - 5.1 mmol/L [facility] Chloride 105 96 - 108 mmol/L [facility] Carbon Dioxide 27 22 - 29 mmol/L [facility] Anion Gap 11(L) 12 - 20 [facility] Urea Nitrogen (BUN) 8(L) 9 - 16 mg/dL [facility] Creatinine, Serum 0.68 0.5 - 1.4 mg/dL [facility] Creatinine Clr Calc Pharmacy 110.0 [facility] Comment:Provided height and weight: 154.94 cm,68.5 kg.eGFR (calculated from the MDRD study equation) and eCrCl(calculated from the Cockcroft-Gault equation) are based ondifferent parameters and may not yield comparable results.If eCrCl result is absurd, please check patient'sheight/weight. Estimated Glomerular Filt Rate >60 [facility] Comment:Chronic Kidney Disea se: Estimated GFR < 60 mL/min/1.43c8Garffc Kidney Disease: Estimated GFR < 15 mL/min/1.73m2 Glucose 95 60 - 115 mg/dL [facility] Calcium 9.4 8.4 - 10.2 mg/dL [facility] Bilirubin, Total 0.4 0.0 - 1.0 mg/dL [facility] Aspartate Amino Transferase 26 5 - 31 U/L [facility] Alanine Aminotransferase 28 0 - 31 U/L [facility] Total Protein 7.5 6.5 - 8.0 g/dL [facility] Albumin Level 4.6 3.5 - 5.0 g/dL [facility] Alkaline Phosphatase 69 39 - 117 U/L [facility] 02/11/2025 9:39 AM EDT 02/11/2025 9:41 AM EDT us Generic External Data Provider LAB BLOOD ORDERAB LES Final Result [facility] [address] [place] [phone] * (ABNORMAL) CBC auto differential (02/11/2025 9:39 AM EDT) White Blood Count 7.7 4.8 - 10.8 X10*3/uL [facility] Red Blood Count 4.76 4.20 - 5.50 X10*6/uL [facility] Hemoglobin 12.9 12.0 - 16.0 g/dl [facility] Hematocrit 39.0 37.0 - 47.0 % [facility] Mean Corpuscular Volume 81.9 80.0 - 98.0 fL [facility] Mean Corpuscular Hemoglobin 27.1 27.0 - 33.0 pg [facility] Mean Corpuscular HGB Conc 33.1 31.0 - 35.0 g/dl [facility] Red Cell Distribution Width 13.4 11.0 - 16.0 % [facility] Platelet Count 230 160 - 400 X10*3/uL [facility] Mean Platelet Volume 10.7 9.4 - 12.3 fL [facility] Neutrophils Percent Auto 78.2(H) 45 - 73 % [facility] Imm Gran Pct Auto 0.4 0.0 - 0.4 % [facility] Lymphocytes Percent Auto 12.5(L) 20 - 40 % [facility] Monocytes Percent Auto 5.2 2 - 11 % [facility] Eosinophils Percent Auto 3.2 0 - 4 % [facility] Basophils Percent Auto 0.5 0 - 2 % [facility] NRBC Pct Auto 0.0 0.0 - 0.2 /100WBC [facility] Neutrophils Absolute Auto 6.0 2.0 - 8.3 x10*3/uL [facility] Imm Gran Abs Auto 0.03 0.00 - 0.03 X10*3/uL [facility] Lymphocytes Absolute Auto 1.0(L) 1.2 - 4.9 X10*3/uL [facility] Monocytes Absolute Auto 0.4 0.1 - 1.2 X10*3/uL [facility] Eosinophils Absolute Auto 0.3 0.0 - 0.4 X10*3/uL [facility] Basophils Absolute Auto 0.0 0.0 - 0.2 X10*3/uL [facility] NRBC Abs Auto 0.000 0.0 - 0.012 X10*3/uL [facility] 02/11/2025 9:39 AM EDT 02/11/2025 9:41 AM EDT us Generic External Data Provider LAB BLOOD ORDERAB LES Final Result Performing Organization Address City/State/[facility] Co de Phone Number [facility] [address] [place] [phone] documented in this encounter Visit Diagnoses Not on filedocumented in this encounter Additional Health Concerns Assessment Noted Time PHQ-9 Depression Total Score: 9 03/03/20 24 11:13 AM EDT documented as of this encounter Care Teams Activity Assistant Relationship Specialty Start Date End Date Kami Aponte FNP [address] [place] [phone] PCP - General Family Medicine 07/18/23 Mireille Patricia Patient Relations Liaison 1/27/25 documented as of this encounter
--- OUTSIDE RECORDS SUMMARY | 2025-02-11 11:25 | XMS_ITS | Encounter Summary ---
Author Organization [employer] Address [address] [place] [address] 7 [place] [address] Care Team Providers Care Wool Mixer Name Role Phone [facility] Primary Care Provider Reason for Visit * Reason Onset Date Comments Nurse Triage 01/14/2025 Encounter Details Date Type Department Care Team ([facility] Contact Info) Description 01/14/2025 Telephone [facility] MEDICINE [address] [place], [place] [phone] [place] Kami [facility] [address] [place] [address] Nurse Triage Social History Tobacco Use Types Packs/Day Years [...] encounter Miscellaneous Notes * Telephone Encounter - Nicolasa Braun RN - 01/14/2025 12:00 PM EDT Triage call Pt reports had first period which finished 2 weeks ago. Pt reports some spotting on toilet paper when wiping today. Pt is requesting to get the nexplanon at this time. Pt stopped breast feeding a month and a half ago and is not taking any control progestin as discussed 09/29/24 OV. APT scheduled for 01/20/25 @ 1000am with DHEERAJ Gomez. Pt agrees with disposition and insurance is verified as active. Protocol Used: - Vaginal Bleeding and Lochia (Adult) Protocol-Based Disposition: See in Office or Video Visit within 3 Days Override (Final) Disposition: See in Office or Video Visit within 2 Weeks Override Reason: No appointments available Positive Triage Question: * Vaginal bleeding or spotting lasts > 4 weeks AND red or red-brown * All higher-acuity triage questions were negative Care Advice Discussed: * Reassurance and Education - Normal Vaginal Bleeding * Lochia - 3 Overlapping Stages * When Bleeding Stops and Starts * Afterbirth Pains * Drink Plenty of Liquids * Use Pads Not Tampons * Reasons To Call Back - Severe abdomen pain or lightheadedness occurs - Bleeding worsens or does not improve - Fever 100.4 F (38.0 C) or higher - You become worse * Telephone Encounter - Augustinerancho Los - 01/14/2025 11:25 AM EDT Symptom: Vaginal Bleeding - Not Outcome: Schedule an urgent appointment (within 4 hours) or talk to a nurse or provider soon Reason: Started within the past 3 days The caller accepted this outcome. Contact pt at [phone] documented in this encounter Plan of Treatment Not on file documented as of this encounter Visit Diagnoses Not on filedocumented in this encounter Additional Health Concerns Assessment Noted Time PHQ-9 Depression Total Score: 9 03/03/20 24 11:13 AM EDT documented as of this encounter Care Teams Wool Mixer Relationship Specialty Start Date End Date Kami Aponte FNP [address] [place] [phone] PCP - General Family Medicine 07/18/23 Mireille Patricia Merchandising Team Lead 07/14/24 documented as of this encounter
--- OUTSIDE RECORDS SUMMARY | 2025-02-11 11:25 | XMS_ITS | Clinical Summary ---
Author Organization [employer] Address [address] [place] [address] [address] [place] [address] Care Team Providers Care Mesh Man Name Role Phone Kami Aponte Primary Care Provider [phone] Allergies No known active allergies Medications * This document contains information received from the source organization and may not represent a complete record from that organization. pyridoxine (Vitamin B-6) 25 MG tablet Active ondansetron (Zofran) 8 MG tablet Active doxylamine (Unisom) 25 MG tablet Active multivitamin () 27-0.8 MG tablet Take 1 tablet by mouth in the morning. 4 Active benzoyl peroxide 5 % gelIndications: Acne vulgaris APPLY TOPICALLY ONCE A DAY 60 g 2 5 Active tretinoin (Retin-A) 0.025 % gel APPLY TOPICALLY AT BEDTIME 45 g 5 Active norethindrone (Ortho Micronor) 0.35 MG tablet Take 1 tablet (0.35 mg) by mouth Once per day. 28 tablet 12 5 09/29/19 26 Active ferrous sulfate 325 (65 Fe) MG tablet Take 325 mg by mouth with breakfast. 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 No new partners. Declines COVID vaccine Severe anxiety 10/12/2023 Assessment & Plan (03/03/2024 11:30 AM EDT): During IBH Consult Sylvester presenting with excessive worry/anxiety, difficulty controlling worry, anxiety/worry associated to restlessness and/or feeling keyed-up/On edge , easily fatigued , difficulty concentrating and/or mind going blank , irritability, and sleep disturbance difficulty falling asleep, Fear , and sense of dread ; for a period of 18+ mo, for some symptoms in the context of family issues, relationship issues, and lack of engagement for MH services. Sylvester carries a diagnosis for Bipolar disorder, ADHD and anxiety per her medical chart. Today she presented with severe anxiety symptoms. Triggers identified as complicated relationship with significant others, lack of family/social support and lack of engagement to address mental health. Pt feels more anxious now that she will be starting a new job. Discussed coping mechanisms to practice to decrease anxiety, provided tools and practice breathing exercise during session. Pt is a mother of three, she feels frustrated due to the lack of support. clinician engaged with patient using open-ended questions. Reviewed and assessed for risk, current stressors and protective factors. Provided information for [facility] programs and also printed information to contact [facility]. Referral was placed on 11/2023 for OP services. clinician will provide additional support if needed during next visit. Bipolar disorder 03/05/2023 Overview (11/09/2023): Psychiatric Hx-chart with previous diagnosis of bipolar disorder, ADHD, cognitive delay, anxiety, hx of suicide attempt. No current medications. Not established with therapist. States heavy marijuana use is how she victoriano with mood changes--anger, irritability. Difficulty focusing. Assessment & Plan (10/12/2023 1:17 PM EDT): PROGRESS NOTE: ID: Sylvester is a 28 y.o. White Montenegrin bisexual-identified cis- female (pronouns ) with previous documented hx of Depression, Anxiety, Bipolar Disorder , ADHD/ADD, Developmental Delay, and Suicide Ideation MH services including OP Psychotherapy psychopharmacology Inpatient who presents for Anxiety, Safety Plan, Bipolar, and Depression During IBH Consult Sylvester presenting with depressed mood, loss of interests/pleasure , changes in sleep difficulty staying asleep , change in appetite or weight reduce appetite, psychomotor agitation, trouble concentrating, thoughts of worthlessness or guilt, fatigue/loss of energy, suicide attempt during her teen years, excessive worry/anxiety, difficulty controlling worry, restless/keyed up/On edge, easily fatigued, difficulty concentrating/Mind going blank , irritability, muscle tension, and sleep disturbance difficulty staying asleep , Difficulty with attention, Difficulty completing tasks/jumping between tasks or activities, Difficulty with focus, Easily distracted, Difficulty being still, Restlessness/fidgeting, Talkative, and Difficulty with relationships, and Pattern of unstable and intense interpersonal relationships, Feelings of emptiness, Intense anger, and Disassociation; for a period of 18+ mo, for all symptoms in the context of distrust in others as a result of traumatic events, single mother of 3, and currently not in medication management. Safely Plan Created and provided to patient. 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 Dx'd with retinal migraine. Had visual field testing with abnormal findings-concern for possible neurologic defect with recommendation for brain MR for further eval Resolved Problems Problem Noted Date Diagnosed Date Resolved Date Attempted suicide 03/05/2023 02/25/2024 Vaginal discharge 02/03/2023 02/25/2024 Assessment & Plan (02/03/2023 8:27 PM EDT): having 3d of vaginal itchiness, thick white discharge, not foul smelling. Denies fever, chills, nor Sx. Suspicion for BV vs ganesh infection ? -preg test urine today is neg -obtained sample today to r/o Trich,ganesh,BV ,Gn/Ch -prescribed today empirically fluconazole 150 mg x1 and metronidazole gel daily for 5 days Sore throat 10/27/2022 10/27/2022 Upper respiratory infection 10/27/2022 02/03/2023 Assessment & Plan (10/27/2022 5:48 PM EDT): Pt w upper respiratory symptoms , normal VS and on exam only erythematous throat w no exudates,afebrile, no SNYDER no cervical lymphadenopathy Centor's criteria is 0 -here covid ag,flu and strep rapid test are neg -urine preg test is neg -pt likely with symptoms of a viral URI -hydration -supportive tx for her respiratory and GI symptoms -alarm signs and symptoms discussed in case symptoms are worsening or not improving Chronic diarrhea 03/28/2018 02/25/2024 Anxiety 08/12/2012 02/25/2024 Benign neoplasm of skin of trunk 08/12/2012 02/25/2024 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 02/25/2024 Difficulty coping 08/12/2012 02/25/2024 Severe major depression with psychotic features 08/12/2012 02/25/2024 Encounters Date Type Department Care Team Description 02/11/2025 Orders Only GENERIC EXTERNAL DATA DEPARTMENT Provider, Generic External Data 02/02/[address] [address] Sharla Gomez CNM chart prep 02/02/[address] [address] Kami Aponte FNP Care Management (C3CM follow up call) 01/27/2025 Orders Only [facility] External Provider, [facility] 01/27/2025 Travel 01/14/2025 Telephone [facility] [address] [place] [address] Kami Aponte FNP Nurse Triage 01/08/[address] [address] [facility] Care Management (C3CM follow up call) 12/22/[address] [address] Sharla Gomez, CNM No Show 12/18/[address] [address] [facility] 12/15/[address] [address] [facility] Care Management (C3 TC #1-unable to lvm) 11/19/[address] [phone] [facility] Care Management (C3CM follow up call) from Last 3 Months Immunizations Immunization Administration Dates Next Due DTaP 05/08/2001, 9,1997,08/31,1997 HPV, Quadrivalent 06/07/2010,02/01/2010,12/01/19 10 Hep B, Adolescent or Pediatric 1997,1997,1997 Hib (HbO) 12/16/1999 IPV 05/08/2001, 8,1997,07/02 Influenza Injectable Quadriv alant Preservative Free IIV4 MDCK 07/07/2020 Influenza injectable quadriv alent preservative free 06/07/2016 Influenza, IIV3, injectable 06/22/2012 Influenza, Split (incl. gloria fied surface antigen) 03/11/2012 Influenza, live, intranasal 04/16/2013 Influenza, seasonal, injecta ble, preservative free 06/09/2015 MMR 08/27/1998,06/01/1998 Meningococcal MPSV4 10/12/2008 TD (adult), 2 Lf tetanus tox oid, preservative free, adsorbed 01/21/2019 Tdap 11/03/2020,09/04/2017,12/16/2007 Varicella 01/11/2021, 8,10/09/2007,06/02 Social History Tobacco Use Types Packs/Day Years Used Date Smoking Tobacco: Never Passive Smoke Exposure: Never Smokeless Tobacco: Never Depression Answer Date Recorded Patient Health Questionnaire-9 Score 9 03/03/2024 Patient Health Questionnaire-9 Score 9 03/03/2024 Last PHQ-9: Questionnaire Data Not on file 0 03/03/2024 Housing Stability Answer Date Recorded What is your housing situation today? I have souravnyasia barajas 04/10/[address] you [...] Q2 Not on file 04/28/2024 Comments No Intention Date Recorded No desire to become (finding) 0 09/29/2024 Sex and Gender Information Value Date Recorded Sex Assigned at Female 04/17/2022 10:16 AM EDT Legal Sex Female 10:16 AM EDT Gender Identity Female 10/27/2022 11:49 AM EDT Sexual Orientation Bisexual 10/27/2022 11 :49 AM EDT Last Filed Vital Signs Vital Sign Reading Time Taken Comments Blood Pressure 119/78 09/29/2024 11:41 AM EDT Pulse 93 09/29/2024 11:41 AM EDT Temperature 36.3 C (97.3 F) 09/29/2024 11:41 AM EDT Respiratory Rate 16 09/29/2024 11:41 AM EDT Oxygen Saturation 98% 09/29/2024 11:41 AM EDT Inhaled Oxygen Concentration - - Weight 70.6 kg (155 lb 9.6 oz) 09/29/2024 11:41 AM EDT Height 154.9 cm (5' 1 ) 09/29/2024 11:41 AM EDT Body Mass Index 29.4 09/29/2024 11:41 AM EDT Plan of Treatment Health Maintenance Due Date Last Done Comments Disability Screening 1997 Alcohol/Substance Use Screening 2009 COVID-19 Vaccine ( season) 2024 01/03/2021, 12/13/2020 Depression Monitoring 08/31/2024 03/03/2024, 024 Influenza Vaccine (#1) 2025 , 06/07/2016, 06/09/2015, Additional history exists Pap Smear 03/06/2025 03/06/2022, 03/06/2022 SDOH Screening 04/28/2025 04/28/2024 Family Planning (PISQ) 09/29/2025 09/29/2024 Tobacco Screening 09/29/2025 09/29/2024 DTaP/Tdap/Td Vaccines (11 - Td or Tdap) 07/02/2034 07/02/2024, 11/03/2020, 01/21/2019, Additional history exists Zoster Vaccines (1 of 2) 2047 RSV Patients and Patients Aged 60 years or older (1 - 1-dose 75+ series) 2072 Hepatitis B Vaccines Completed 1997, 1997, 1997 HIB Vaccines Completed 12/16/1999 IPV Vaccines Completed 05/08/2001, 10/16, 1997, Additional history exists Meningococcal Vaccine Aged Out 10/12/2008 No norma mayra eligible based on patient's age to complete this topic HPV Vaccines Completed 06/07/2010, 01/16, 11/30/2009 Hepatitis C Screening Completed 10/20/2021, 021 HIV Screening Completed 11/20/2022, 0510/2021, 04/20/2021 Hepatitis A Vaccines Aged Out No long er eligible based on patient's age to complete this topic Meningococcal B Vaccine Aged Out No l onger eligible based on patient's age to complete this topic Pneumococcal Vaccine: Pediatrics (0 to 5 Years) and At-Risk Patients (6 to 49) Years Aged Out No longer eligible based on patient's age to complete this topic RSV under 20 months Aged Out No longe r eligible based on patient's age to complete this topic Rotavirus Vaccines Aged Out No longer eligible based on patient's age to complete this topic Procedures Procedure Name Priority Date/Time Associated Diagnosis Comments HCG, QL, URINE Routine 02/11/2025 10:15 AM EDT URINALYSIS, COMPLETE, WITH REFLEX TO CULTURE Routine 02/11/2025 10:15 AM EDT URINALYSIS WITH REFLEX MICROSCOPIC Routine 02/11/2025 10:15 AM EDT COMPREHENSIVE METABOLIC PANEL Routine 02/11/2025 9:39 AM EDT CBC WITH AUTO DIFFERENTIAL Routine 02/11/2025 9:39 AM EDT XR HAND 3+ VIEWS RIGHT Routine 12:27 PM EDT HIV 1/2 ANTIGEN/ANTIBODY, FOURTH GENERATION W/RFL Routine 11/20/2022 1:28 PM EDT THINPREP IMAGING SYSTEM PAP Routine 03/06/2022 12:23 PM EDT ZZZ HISTORICAL HEPATITIS C AB W/REFL TO HCV RNA, QN, PCR Routine 10/20/2021 1:20 PM EDT from Last 3 Months or Most Recently Relevant to Health Maintenance Results * (ABNORMAL) Urinalysis, Complete, with Reflex to Culture (02/11/2025 10:15 AM EDT) Color Urine Yellow [facility] Appearance Urine Cloudy [facility] PH 5.5 5.0 - 9.0 [facility] Glucose Urine UA Negative Negative mg/dL [facility] Urine Blood Large (3+)(A) Negative [facility] Specific [place] - Urine 1.025 1.005 - 1.025 [facility] Urine Protein 300 (3+)(A) Neg-Trace mg/dL [facility] Urine Ketones Trace Negative mg/dL [facility] Nitrite Urine Negative Negative [facility] Leukocyte Esterase Urine Small (1+)(A) Negative [facility] RBC Urine 11-20(A) 0 - 2 /HPF [facility] Urine WBC 6-10 0 - 5 /HPF [facility] Urine Squamous Epithelial Cell 6-10 0 - 2 /HPF [facility] Urine Bacteria 2+ None Seen [facility] Hyaline Casts, Urine 0-2 0 - 2 /LPF [facility] 02/11/2025 10:1 5 AM EDT 02/11/2025 10:19 AM EDT Narrative [facility] - 02/11/2025 10:35 AM EDT Urine, Clean Catch us Generic External Data Provider LAB URINE ORDERAB LES Final Result Performing Organization Address [facility] Co de Phone Number [facility] [address] [place] [phone] * HCG, Qualitative, Urine (02/11/2025 10:15 AM EDT) Urine NEGATIVE NEGATIVE [facility] Comment:This test was develo ped to detect early . Falsenegative results may occur after the 5th - 7th week ofpregnancy when using this test method. If clinicallyindicated, consider a serum hCG. 02/11/2025 10:1 5 AM EDT 02/11/2025 11:10 AM EDT us Generic External Data Provider LAB URINE ORDERAB LES Final Result Performing Organization Address [facility]/ZIP Co de Phone Number [facility] [address] [place] [phone] * (ABNORMAL) Urinalysis w/reflex microscopic (02/11/2025 10:15 AM EDT) Color Urine Yellow [facility] Appearance Urine Cloudy [facility] PH 5.5 5.0 - 9.0 [facility] Glucose Urine UA Negative Negative mg/dL [facility] Urine Blood Large (3+)(A) Negative [facility] Specific [place] - Urine 1.025 1.005 - 1.025 [facility] Urine Protein 300 (3+)(A) Neg-Trace mg/dL [facility] Urine Ketones Trace Negative mg/dL [facility] Nitrite Urine Negative Negative [facility] Leukocyte Esterase Urine Small (1+)(A) Negative [facility] 02/11/2025 10:1 5 AM EDT 02/11/2025 10:19 AM EDT Narrative [facility] - 02/11/2025 10:24 AM EDT Urine, Clean Catch us Generic External Data Provider LAB URINE ORDERAB LES Final Result [facility] [address] [place] [phone] * (ABNORMAL) CBC auto differential (02/11/2025 9:39 AM EDT) White Blood Count 7.7 4.8 - 10.8 X10*3/uL [facility] Red Blood Count 4.76 4.20 - 5.50 X10*6/uL [facility] Hemoglobin 12.9 12.0 - 16.0 g/dl [facility] Hematocrit 39.0 37.0 - 47.0 % [facility] Mean Corpuscular Volume 81.9 80.0 - 98.0 fL [facility] Mean Corpuscular Hemoglobin 27.1 27.0 - 33.0 pg [facility] Mean Corpuscular HGB Conc 33.1 31.0 - 35.0 g/dl [facility] Red Cell Distribution Width 13.4 11.0 - 16.0 % [facility] Platelet Count 230 160 - 400 X10*3/uL [facility] Mean Platelet Volume 10.7 9.4 - 12.3 fL [facility] Neutrophils Percent Auto 78.2(H) 45 - 73 % [facility] Imm Gran Pct Auto 0.4 0.0 - 0.4 % [facility] Lymphocytes Percent Auto 12.5(L) 20 - 40 % [facility] Monocytes Percent Auto 5.2 2 - 11 % [facility] Eosinophils Percent Auto 3.2 0 - 4 % [facility] Basophils Percent Auto 0.5 0 - 2 % [facility] NRBC Pct Auto 0.0 0.0 - 0.2 /100WBC [facility] Neutrophils Absolute Auto 6.0 2.0 - 8.3 x10*3/uL [facility] Imm Gran Abs Auto 0.03 0.00 - 0.03 X10*3/uL [facility] Lymphocytes Absolute Auto 1.0(L) 1.2 - 4.9 X10*3/uL [facility] Monocytes Absolute Auto 0.4 0.1 - 1.2 X10*3/uL [facility] Eosinophils Absolute Auto 0.3 0.0 - 0.4 X10*3/uL [facility] Basophils Absolute Auto 0.0 0.0 - 0.2 X10*3/uL [facility] NRBC Abs Auto 0.000 0.0 - 0.012 X10*3/uL [facility] 02/11/2025 9:39 AM EDT 02/11/2025 9:41 AM EDT us Generic External Data Provider LAB BLOOD ORDERAB LES Final Result [facility] [address] [place] [phone] * (ABNORMAL) Comprehensive Metabolic Panel (02/11/2025 9:39 AM EDT) Sodium 139 135 - 145 mmol/L [facility] Potassium 4.0 3.3 - 5.1 mmol/L [facility] Chloride 105 96 - 108 mmol/L [facility] Carbon Dioxide 27 22 - 29 mmol/L [facility] Anion Gap 11(L) 12 - 20 [facility] Urea Nitrogen (BUN) 8(L) 9 - 16 mg/dL [facility] Creatinine, Serum 0.68 0.5 - 1.4 mg/dL [facility] Creatinine Clr Calc Pharmacy 110.0 [facility] Comment:Provided height and weight: 154.94 cm,68.5 kg.eGFR (calculated from the MDRD study equation) and eCrCl(calculated from the Cockcroft-Gault equation) are based ondifferent parameters and may not yield comparable results.If eCrCl result is absurd, please check patient'sheight/weight. Estimated Glomerular Filt Rate >60 [facility] Comment:Chronic Kidney Disea se: Estimated GFR < 60 mL/min/[id number] Kidney Disease: Estimated GFR < 15 mL/min/1.73m2 Glucose 95 60 - 115 mg/dL [facility] Calcium 9.4 8.4 - 10.2 mg/dL [facility] Bilirubin, Total 0.4 0.0 - 1.0 mg/dL [facility] Aspartate Amino Transferase 26 5 - 31 U/L [facility] Alanine Aminotransferase 28 0 - 31 U/L [facility] Total Protein 7.5 6.5 - 8.0 g/dL [facility] Albumin Level 4.6 3.5 - 5.0 g/dL [facility] Alkaline Phosphatase 69 39 - 117 U/L [facility] 02/11/2025 9:39 AM EDT 02/11/2025 9:41 AM EDT us Generic External Data Provider LAB BLOOD ORDERAB LES Final Result [facility] [address] [place] [phone] * XR Hand 3+ Views Right (01/27/2025 12:27 PM EDT) Anatomical Region Laterality Modality Upper Extremities, Hand Right Radiogra phic Imaging 01/27/2025 12:2 7 PM EDT Narrative 01/27/2025 1:36 PM EDT [place] [address] XRay Report Signed Patient: Sylvester Bates MR#: [id number] : 1995 Acct:[id number] Age/Sex: 29 / F ADM Date: 01/27/25 Loc: HO.ED Attending Dr: Ordering Physician: Trina Cooper Date of Service: 01/27/25 Procedure(s): XR hand RT min 3V Accession Number(s): [id number] cc: Trina Cooper; [facility] PARAPROFESSIONAL AIDE TEACHER EXAMINATION: XR HAND 3 OR MORE VIEWS RIGHT HISTORY: pain, injury COMPARISON: There are no prior studies available for comparison. FINDINGS: Three views of the right hand are submitted. Osseous mineralization is normal. There is no fracture or dislocation. The joint spaces are preserved. The soft tissues are unremarkable. XR/XR hand RT min 3V IMPRESSION: Unremarkable examination of the right hand. Electronically signed by: Tristan Arenas MD 01/27/2025 01:33 PM EDT Dictated By: Tristan Arenas MD Signed By: <Electronically signed by Tristan Arenas MD in OV> 01/27/25 1333 DD/ 1227 TD/TT: 01/27/25 1326 Communication Arts Lecturer: Procedure Note Donotmarianointerpreter, Image - 01/27/[address] [address] XRay Report Signed Patient: Sylvester Bates NMR#: [id number] : 1995Acct:[id number] Age/Sex: 29 / FADM Date: 01/27/25 Loc: HO.ED Attending Dr: Ordering Physician: Trina Cooper Date of Service: 01/27/25 Procedure(s): XR hand RT min 3V Accession Number(s): [id number] cc: Trina Cooper; [facility] PARAPROFESSIONAL AIDE TEACHER EXAMINATION: XR HAND 3 OR MORE VIEWS RIGHT HISTORY: pain, injury COMPARISON: There are no prior studies available for comparison. FINDINGS: Three views of the right hand are submitted. Osseous mineralization is normal. There is no fracture or dislocation. The joint spaces are preserved. The soft tissues are unremarkable. XR/XR hand RT min 3V IMPRESSION: Unremarkable examination of the right hand. Electronically signed by: Tristan Arenas MD 01/27/2025 01:33 PM EDT Dictated By: Tristan Arenas MD Signed By: <Electronically signed by Tristan Arenas MD in OV> 01/27/25 1333 DD/ 1227 TD/TT: 01/27/25 1326 Communication Arts Lecturer: [facility] External Provider IMG XR PROCEDURES Edited Result - Final * HIV-1/2 Antigen and Antibodies, Fourth Generation, with Reflexes (11/20/2022 1:28 PM EDT) Pathologist [facility] HIV Antigen/Antibody, 4th Generation NON-REAC TIVE NON-REAC TIVE [facility] Comment: HIV-1 antigen and HIV-1/HIV-2 antibodies were not detected. There is no laboratory evidence of HIV infection. PLEASE NOTE: This information has been disclosed to you from records whose confidentiality may be protected by state law. If your state requires such protection, then the state law prohibits you from making any further disclosure of the information without the specific written consent of the person to whom it pertains, or as otherwise permitted by law. A general authorization for the release of medical or other information is NOT sufficient for this purpose. For additional information please refer to http://education.Fare[employer].Talk Local/faq/BQI017 (This link is being provided for informational/ educational purposes only.) The performance of this assay has not been clinically validated in patients less than 2 years old. 11/20/2022 1:28 PM EDT 11/20/2022 1:29 PM EDT Narrative [facility] - 11/21/2022 7:30 PM EDT FASTING:UNKNOWN FASTING: UNKNOWN Sharla Gomez [facility] LAB BLOOD ORDERABLES Dipti scott Result [facility] [address], [place] [address] [facility] [address] [place] [address] * THINPREP TIS PAP (03/06/2022 12:23 PM EDT) Clinical Information: None given [facility] COMMENT SEE COMMENT [facility] Comment: EXPLANATORY NOTE: The Pap is a screening test for cervical cancer. It is not a diagnostic test and is subject to false negative and false positive results. It is most reliable when a satisfactory sample, regularly obtained, is submitted with relevant clinical findings and history, and when the Pap result is evaluated along with historic and current clinical information. COMMENT: SEE COMMENT [facility] Comment: This case could not be evaluated with computer assisted technology. The slide was manually screened according to routine procedures. Training Coordinator : SEE COMMENT [facility] Comment: BK,CT(ASCP) CT screening location: [address] Infection Fungal organisms morphologically consistent with Ganesh spp. [facility] Interpretation/R esult: Negative for intraepithelial lesion or malignancy. [facility] LMP: 03/05/2022 [facility] Prev. BX: NONE [facility]IVEN [facility] Prev. PAP: NONE GIVEN [facility] Review Training Coordinator : SEE COMMENT [facility] Comment: RK, CT(ASCP) CT screening location: [address] [phone] SOURCE: Cervix [facility] Statement Of Adequacy: SEE COMMENT [facility] Comment: Satisfactory for evaluation. Endocervical/transformation zone component present. 03/06/2022 12:2 3 PM EDT Sharla Gomez CNM LAB PATHOLOGY ORDERABLES Final Result Performing Organization Address [place] de Phone Number [facility] [address] * HEPATITIS C AB W/REFL TO HCV RNA, QN, PCR (10/20/2021 1:20 PM EDT) HEPATITIS C ANTIBODY NON-REACT IFEANYI NON-REACT IFEANYI [facility] INDEX 0.03 <1.00 [facility] Comment: HCV antibody was non-reactive. There is no laboratory evidence of HCV infection. In most cases, no further action is required. However, if recent HCV exposure is suspected, a test for HCV RNA (test code 73222) is suggested. For additional information please refer to [email or web address] [email or web address] (This link is being provided for informational/ educational purposes only.) 10/20/2021 1:20 PM EDT Joan Atkinson PARAPROFESSIONAL AIDE TEACHER HISTORICAL/NON ORDERABLE LABS Final Result Performing Organization Address [place] Phone Number [facility] [address] from Last 3 Months or Most Recently Relevant to Health Maintenance Insurance [facility] C3 Care Teams Mesh Man Relationship Specialty Start Date End Date Kami Aponte FNP [address] [place] [id number] PCP - General Family Medicine 07/18/23 Mireille Patricia [employer] Caser 07/14/24
--- NOTE | 2025-02-11 11:38 | PC.NURSE ---
Unable to establish IV access X2 tries; this RN sent another nurse in to try to gain access; pt sobbing in room, stating she's afraid of needles and is asking to be DC'd; emotional support gv and provider made aware of pt's refusal at this time
[2025-02-11 12:16] VITALS: BP 118/62; PULSE 98; RESP 18; TEMP 36.8; O2SAT 99
== END 2025-02-11 12:18 | disposition left against medical advice (07) ==
PROVIDERS: Emergency Provider Emergency Medicine; PCP Registered Nurse
DX: R10.31 Right lower quadrant pain (principal); R31.9 Hematuria, unspecified; Z53.29 Procedure and treatment not carried out because of patient's decision for other reasons
CPT/HCPCS: 36415; 80053; 81001; 81025; 85025; 87086; 87088; 87186; 99283

== ENCOUNTER 2025-04-28 10:10 | Outpatient (REF) | payer MEDICAID, SELFPAY ==
--- OUTSIDE RECORDS SUMMARY | 2025-04-28 09:15 | XMS_ITS | Encounter Summary ---
Author Organization [employer] Address [address] [place] [address] 7 [place] [address] Care Team Providers Care Blacksmith Hammer Operator Name Role Phone Kami Aponte GLOBAL UPSTREAM MARKETING MANAGER Primary Care Provider [phone] Reason for Visit * Reason Comments CHW - Office Visit Encounter Details Date Type Department Care Team ([facility] Contact Info) Description 04/28/2025 9:15 AM EST Office Visit [facility] MEDICINE [address] [place] [address] Sharla Whitlock, DHEERAJ [address] [place] [address] Irregular periods (Primary Dx); Cervical cancer screening; Pelvic and perineal pain Social History Tobacco Use Types Packs/Day Years Used Date Smoking Tobacco: Never Passive Smoke Exposure: Never Smokeless Tobacco: Never Tobacco Cessation:Counseling Given: Not Answered Depression Answer Date Recorded Patient Health Questionnaire-9 Score 2 04/28/2025 Patient Health Questionnaire-9 Score 2 04/28/2025 Last PHQ-9: Questionnaire Data Not on file 1 06/28/2024 Housing Stability Answer Date Recorded What is [...] Date Recorded Patient Health Questionnaire-2 Score 0 04/28/2025 Internet Access Answer Date Recorded Internet Access Q1 Yes 04/28/2024 Internet Access Q2 Not on file 04/28/2024 Comments Unknown Intention Date Recorded No desire to become (finding) 1 06/28/2024 Sex and Gender Information Value Date Recorded Sex Assigned at Female 04/17/2022 10:16 AM EDT Legal Sex Female 10:16 AM EDT Gender Identity Female 10/27/2022 11:49 AM EDT Sexual Orientation Bisexual 10/27/2022 11 :49 AM EDT documented as of this encounter Last Filed Vital Signs Vital Sign Reading Time Taken Comments Blood Pressure 118/78 04/28/2025 9:23 AM EST Pulse 94 04/28/2025 9:23 AM EST Temperature 36.4 C (97.6 F) 04/28/2025 9:23 AM EST Respiratory Rate 16 04/28/2025 9:23 AM EST Oxygen Saturation 98% 04/28/2025 9:23 AM EST Inhaled Oxygen Concentration - - Weight 70.5 kg (155 lb 8 oz) 04/28/2025 9:23 AM EST Height - - Body Mass Index 29.38 09/29/2024 11:41 AM EDT documented in this encounter Functional Status * Over the past 2 weeks, how often have you been bothered by any of the following problems? Question Answer Date of Assessment Author Patient Health Questionnaire -2 Score 0 04/28/2025 10:04 AM EST Annabel Aldana MA * Little interest or pleasure in doing things Answer Date of Assessment Author Not at all 04/28/2025 10:04 AM EST Annabel Aldana MA * Feeling down, depressed, or hopeless Answer Date of Assessment Author Not at all 04/28/2025 10:04 AM Annabel Whiting MA * Trouble falling or staying asleep, or sleeping too much Answer Date of Assessment Author Not at all 04/28/2025 10:04 AM Annabel Whiting MA * Feeling tired or having little energy Answer Date of Assessment Author Several days 04/28/2025 10:04 AM Annabel Whiting MA * Poor appetite or overeating Answer Date of Assessment Author Not at all 04/28/2025 10:04 AM Annabel Whiting MA * Feeling bad about yourself - or that you are a failure or have let yourself or your family down Answer Date of Assessment Author Not at all 04/28/2025 10:04 AM Annabel Whiting MA * Trouble concentrating on things, such as reading the newspaper or watching television Answer Date of Assessment Author Several days 04/28/2025 10:04 AM Annabel Whiting MA * Moving or speaking so slowly that other people could have noticed? Or the opposite - being so fidgety or restless that you have been moving around a lot more than usual. Answer Date of Assessment Author Not at all 04/28/2025 10:04 AM Annabel Whiting MA * Thoughts that you would be better off or hurting yourself in some way Answer Date of Assessment Author Not at all 04/28/2025 10:04 AM Annabel Whiting MA * Patient Health Questionnaire-9 Score Answer Date of Assessment Author 2 04/28/2025 10:04 AM Annabel Whiting MA * How difficult have these problems made it for you to do your work, take care of things at home, or get along with other people? Answer Date of Assessment Author Not difficult at all 04/28/2025 10:04 AM Annabel Ramos MA * Over the last 2 weeks, how often have you been bothered by any of the following problems? Question Answer Date of Assessment Author Feeling nervous, anxious, or on edge 2 04/28/2025 10:05 AM Annabel Whiting MA Not being able to stop or co ntrol worrying 1 04/28/2025 10:05 AM Annabel Whiting MA Trouble relaxing 1 04/28/2025 10:05 AM Annabel Whiting MA Being so restless that it is hard to sit still 1 04/28/2025 10:05 AM Annabel Whiting MA Becoming easily annoyed or irritable 3 04/28/2025 10:05 AM Annabel Whiting MA Feeling afraid as if somethi ng awful might happen 1 04/28/2025 10:05 AM Annabel Whiting MA documented as of this encounter Progress Notes * Sharla Whitlock, DHEERAJ - 04/28/2025 9:15 AM EST Subjective Patient ID: Sylvester Bates is a 29 y.o. female who presents for OUTREACH CONSULTANT visit Notes irregular periods, pain with sex, vasomotor symptoms, lack of interest in sex, lack of sensation and dryness with sex as well as increased forgetfulness and emotional lability. All of this has gotten progressively worse since giving . Stopped oral contraceptive pill and stopped about 4 months ago. Notes frequent light bleeding since then. Repeat c/s on 09/17/2024, HSV at 36 wks, baby boy Quin[place]. Hemoglobin/hematocrit 7.9/24.6 on 09/18. Normal hemoglobin/hematocrit 01/2025. No recent TSH on file. Pap NIL 02/2022. She would like pap today. Genital HSV 2 Gonorrhea/Chlamydia/trichomonas neg 06/2024. 1 AMAB partner x 2y, no safety concerns. Partner is supportive. Denies suicidal ideation/homicidal ideation. Has therapist that she will be seeing Sunday. Visit and history with ROXY Quinonez under my supervision. Review of Systems Endocrine: Positive for cold intolerance and heat intolerance. Genitourinary: Positive for dyspareunia, menstrual problem and vaginal bleeding. Negative for dysuria, hematuria, pelvic pain, vaginal discharge and vaginal pain. Objective BP 118/78 (BP Location: Left arm, Patient Position: Sitting, BP Cuff Size: Adult) Pulse 94 Temp97.6 ??F (36.4 ??C) (Oral) Resp 16 Wt 155 lb 8 oz (70.5 kg) LMP (LMP Unknown) SpO2 98% BMI 29.38 kg/m?? Physical Exam Exam conducted with a post manager present (ROXY Quinonez). Constitutional: Appearance: Normal appearance. Genitourinary: General: Normal vulva. Labia: Right: No rash, tenderness, lesion or injury. Left: No rash, tenderness, lesion or injury. Vagina: No signs of injury and foreign body. No vaginal discharge, erythema, tenderness, bleeding, lesions or prolapsed vaginal ortiz. Cervix: No cervical motion tenderness, discharge, lesion, erythema or cervical bleeding. Comments: Tenderness of vestibule at 7/5 o clock. Vaginismus noted. Limited view of cervix. Slight pallor of mucosa Neurological: Mental Status: She is alert. Psychiatric: Mood and Affect: Mood normal. Behavior: Behavior normal. Assessment/Plan Diagnoses and all orders for this visit: Irregular periods - TSH W/Reflex to FT4; Future - FSH; Future - Estradiol; Future - hCG, Total, Quantitative; Future Will check TSH, add on estradiol, FSH and hcg as precaution. If all normal, consider pelvic ultrasound. Cervical cancer screening Pap today. Repeat 3 years if normal. Pelvic and perineal pain Suggestive of pelvic floor dysfunction, especially given vaginismus and vestibular vulvodynia.Will return in 2 weeks for more comprehensive assessment. Possible hypoestrogenism, although not currently or on POP. Will trial vaginal estrogen as well to see if this helps. Other orders - Estradiol (Estrace) 0.01 % cream; Insert 0.5 g into the vagina See administration instructions. Nightly x 14 days, then twice weekly ongoing Declines BH handoff today, feels well to wait until Sunday for appointment with therapist. Urged to schedule appointment with PCP to address memory issues. 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 documented in this encounter Miscellaneous Notes * Addendum Note - Sharla Whitlock CNM - 04/28/2025 9:15 AM ESTAddended by: SHARLA WHITLOCK on: 04/28/2025 10:30 AM Modules accepted: Orders documented in this encounter Plan of Treatment Upcoming Encounters Date Type Department Care Team (Late st Contact Info) Description 05/19/2025 10:00 AM EST Office Visit [address] [address] Sharla Whitlock, CNM [address] [place] [address] 05/22/2025 11:15 AM EST Office Visit [facility] MEDICINE [address] [place] [address] [facility] [address] [place] [address] 07/15/2025 2:00 PM EST Office Visit [facility] OPTOMETRY [address] [place], [place] [phone] GianAgustin katzn, OD [address] [place] [address] Scheduled Orders Name Type Priority Associated Diagnoses Order Schedule TSH W/Reflex to FT4 Lab Routine Irregular periods Expected: 04/28/2025 (Approximate), Expires: 04/28/2026 FSH Lab Routine Irregular periods Expected: 04/28/2025, Expires: 04/28/2026 Estradiol Lab Routine Irregular periods Expected: 04/28/2025 (Approximate), Expires: 04/28/2026 hCG, Total, Quantitative Lab Routine Irregular periods Expected: 04/28/2025 (Approximate), Expires: 04/28/2026 Pap Smear Pathology and Cytology Routine Cervical cancer screening Ordered: 04/28/2025 documented as of this encounter Visit Diagnoses Diagnosis Irregular periods- Primary Cervical cancer screening Screening for malignant neoplasm of the cervix Pelvic and perineal pain documented in this encounter Additional Health Concerns Assessment Noted Time PHQ-9 Depression Total Score: 2 04/28/20 25 10:04 AM EST documented as of this encounter Care Teams Blacksmith Hammer Operator Relationship Specialty Start Date End Date Kami Aponte [facility] [address] [place] [address] PCP - General Family Medicine 07/18/23 Mireille Patricia Feller Operator 07/14/24 documented as of this encounter
--- OUTSIDE RECORDS SUMMARY | 2025-04-28 11:44 | XMS_ITS | Encounter Summary ---
Author Organization [employer] Address [address] [place] [address] 7 [place] [address] Care Team Providers Care Club Lounge Attendant Name Role Phone Fadi [facility] Primary Care Provider [phone] Angelique Kim [facility] Primary Care Provider [phone] Delong [facility] Primary Care Provider [phone] Reason for Visit * Reason Onset Date Comments Results 11/21/2022 Encounter Details Date Type Department Care Team ([facility] st Contact Info) Description 11/21/2022 Telephone [facility] MEDICINE [address] [place], [place] [phone] Delong Kami [facility] [address] [place] [address] Results Social History Tobacco Use Types Packs/Day [...] to message above. Please contact pt at [phone] * Telephone Encounter - Drea Manjarrez - 11/21/2022 4:00 PM EDT Tc from pt requesting a call back in regards to lab results. Please contact pt at [phone] documented in this encounter Plan of Treatment Upcoming Encounters Date Type Department Care Team (Late st Contact Info) Description 05/19/2025 10:00 AM EST Office Visit [facility] MEDICINE [address] [place] [address] Sharla Gomez CNM [address] [place] [address] 05/22/2025 11:15 AM EST Office Visit [facility] MEDICINE [address] [place] [address] DelongKami [facility] [address] [place] [address] 07/15/2025 2:00 PM EST Office Visit [facility] OPTOMETRY [address] [place] [address] Amberly Springer, OD [address] [place] [address] documented as of this encounter Visit Diagnoses Not on filedocumented in this encounter Care Teams Club Lounge Attendant Relationship Specialty Start Date End Date Kami Aponte [facility] [address] [place] [address] PCP - General Family Medicine 08/15/22 02/05/23 Angelique Kim FNP [address] [place] [address] PCP - General Family Medicine 02/06/23 07/17/23 DelongKami vaca FNP [address] [place] [address] PCP - General Family Medicine 07/18/23 Mireille Patricia Application Assistant 07/14/24 documented as of this encounter
--- OUTSIDE RECORDS SUMMARY | 2025-04-28 11:44 | XMS_ITS | Encounter Summary ---
Author Organization [employer] Address [address] [place] [address] 7 [place] [address] Care Team Providers Care Field Evidence Technician Name Role Phone Fadi [facility] Primary Care Provider [phone] Reason for Visit * Reason Onset Date Comments Medication Question 09/24/2024 Encounter Details Date Type Department Care Team ([facility] Contact Info) Description 09/24/2024 Telephone [facility] MEDICINE [address] [place], [place] [phone] [place] Kami [facility] [address] [place] [address] Medication Question Social History Tobacco Use Types [...] 1:33 PM EDT TC placed to patient [phone] regarding below message. RN informed patient she has to make a appt with a provider to discuss control options. Pt was scheduled for 09/29/24 at 1130 with Sharla Gomez the care rep. Patient also informed RN that she is [...] Description 05/19/2025 10:00 AM EST Office Visit [facility] MEDICINE [address] [place] [address] Sharla Gomez CNM [address] [place] [address] 05/22/2025 11:15 AM EST Office Visit [facility] MEDICINE [address] [place] [address] Kami Aponte FNP [address] [place] [address] 07/15/2025 2:00 PM EST Office Visit [facility] OPTOMETRY [address] [place], [place] [phone] GianAmberly katz, OD [address] [place], [place] [phone] documented as of this encounter Visit Diagnoses Not on filedocumented in this encounter Additional Health Concerns Assessment Noted Time PHQ-9 Depression Total Score: 9 03/03/20 24 11:13 AM EDT documented as of this encounter Care Teams Field Evidence Technician Relationship Specialty Start Date End Date Fadi ROXY Mcclure [address] [place] [address] PCP - General Family Medicine 07/18/23 Mireille Patricia Application Project Leader 07/14/24 documented as of this encounter
--- OUTSIDE RECORDS SUMMARY | 2025-04-28 11:44 | XMS_ITS | Clinical Summary ---
Author Organization [facility] Address [address] [place] [address] Care Team Providers Care Ophthalmic Photographer Name Role Phone Ref, Has No Pcp Or Primary Care Provider Unavail able Allergies No known active allergies Social History [...] of Treatment Not on file Care Teams Ophthalmic Photographer Relationship Specialty Start Date End Date Ref, Has No Pcp Or DO NOT EDIT THIS RECORD VIA PROVIDER ON THE FLY PCP - General Rolling Machine Operator 02/07/21
--- OUTSIDE RECORDS SUMMARY | 2025-04-28 11:44 | XMS_ITS | Encounter Summary ---
Author Organization [employer] Address [address] [place] [address] 7 [place] [address] Care Team Providers Care Manual Arts Therapy Teacher Name Role Phone Angelique Kim [facility] Primary Care Provider [phone] [place] [facility] Primary Care Provider [phone] Encounter Details Date Type Department Care Team ([facility] Contact Info) Description 02/27/2023 Orders Only [facility] [address] [place] [address] Angelique Kim FNP [address] [place] [address] Social History Tobacco Use Types Packs/Day Years Used Date Smoking Tobacco: Never Smokeless Tobacco: Never Comments No Sex and Gender Information Value Date Recorded Sex Assigned at Female 04/17/2022 10:16 AM EDT Legal Sex Female 10:16 AM EDT Gender Identity Female 10/27/2022 11:49 AM EDT Sexual Orientation Bisexual 10/27/2022 11 :49 AM EDT documented as of this encounter Plan of Treatment Upcoming Encounters Date Type Department Care Team ([facility] Contact Info) Description 05/19/2025 10:00 AM EST Office Visit [address] [address] Sharla Gomez CNM [address] [place] [address] 05/22/2025 11:15 AM EST Office Visit [address] [address] [place] [facility] [address] [place] [address] 07/15/2025 2:00 PM EST Office Visit [facility] [address] [place] [address] Gian, Amberly, OD [address] [place] [address] documented as of this encounter Visit Diagnoses Not on filedocumented in this encounter Care Teams Manual Arts Therapy Teacher Relationship Specialty Start Date End Date Angelique Kim FNP [address] [place] [address] PCP - General Family Medicine 02/06/23 07/17/23 [place] [facility] [address] [place] [address] PCP - General Family Medicine 07/18/23 Mireille Patricia Electrical Discharge Machine Operator 07/14/24 documented as of this encounter
--- OUTSIDE RECORDS SUMMARY | 2025-04-28 11:44 | XMS_ITS | Encounter Summary ---
Author Organization [employer] Address [address] [facility] 7t [place] [address] Care Team Providers Care Web Assistant Name Role Phone Kami Aponte USER EXPERIENCE RESEARCHER Primary Care Provider [phone] Encounter Details Date Type Department Care Team (Latest Contact Info) Description 04/28/2025 Travel Social History Tobacco Use Types Packs/Day Years [...] Q2 Not on file 04/28/2024 Comments Unknown Sex and Gender Information Value Date Recorded Sex Assigned at Female 04/17/2022 10:16 AM EDT Legal Sex Female 10:16 AM EDT Gender Identity Female 10/27/2022 11:49 AM EDT Sexual Orientation Bisexual 10/27/2022 11 :49 AM EDT documented as of this encounter Functional Status * Over the past 2 weeks, how often have you been bothered by any of the following problems? Question Answer Date of Assessment Author Patient Health Questionnaire -2 Score 0 04/28/2025 10:04 AM Annabel Whiting MA * Little interest or pleasure in doing things Answer Date of Assessment Author Not at all 04/28/2025 10:04 AM Annabel Whiting MA * Feeling down, depressed, or hopeless [...] Not at all 04/28/2025 10:04 AM Annabel Whitnig MA * Trouble concentrating on things, such [...] Trouble relaxing 1 04/28/2025 10:05 AM Annabel Whtiing MA Being so restless that it is hard to sit still 1 04/28/2025 10:05 AM Annabel Whiting MA Becoming easily annoyed or irritable 3 04/28/2025 10:05 AM Annabel Whiting MA Feeling afraid as if somethi ng awful might happen 1 04/28/2025 10:05 AM Annabel Whiting MA documented as of this encounter Plan of Treatment Upcoming Encounters Date Type Department Care Team (Late st Contact Info) Description 05/19/2025 10:00 AM EST Office Visit [facility] MEDICINE [address] [place] [address] Sharla Gomez CNM [address] [place] [address] 05/22/2025 11:15 AM EST Office Visit [facility] MEDICINE [address] [place] [address] Kami Aponte FNP [address] [place] [address] 07/15/2025 2:00 PM EST Office Visit [facility] OPTOMETRY [address] [place] [address] Amberly Springer, OD [address] [place] [address] documented as of this encounter Visit Diagnoses Not on filedocumented in this encounter Additional Health Concerns Assessment Noted Time PHQ-9 Depression Total Score: 2 04/28/20 25 10:04 AM EST documented as of this encounter Care Teams Web Assistant Relationship Specialty Start Date End Date [place]ami FNP [address] [place] [address] PCP - General Family Medicine 07/18/23 Mireille Patricia Extract Mixer 07/14/24 documented as of this encounter
--- OUTSIDE RECORDS SUMMARY | 2025-04-28 11:44 | XMS_ITS | Encounter Summary ---
Author Organization [employer] Address [address] [place] [address] 7 [place] [address] Care Team Providers Care Yacht Master Name Role Phone Kami Aponte EYEGLASS ASSEMBLER Primary Care Provider [phone] Reason for Visit * Reason Comments Med Refill Encounter Details Date Type Department Care Team ([facility] Contact Info) Description 07/13/2024 Refill [facility] [address] [place] [address] Sharla Gomez CNM [address] [place] [address] Encounter for procreative management, unspecified Social History [...] Description 05/19/2025 10:00 AM EST Office Visit [facility] [address] [place] [address] Sharla Gomez, DHEERAJ [address] [place] [address] 05/22/2025 11:15 AM EST Office Visit [facility] [address] [place] [address] Kami Aponte FNP [address] [place] [address] 07/15/2025 2:00 PM EST Office Visit [facility] OPTOMETRY [address] [place] [address] Gian, Amberly, OD [address] [place] [address] documented as of this encounter Visit Diagnoses Diagnosis Encounter for procreative management, unspecified documented in this encounter Additional Health Concerns Assessment Noted Time PHQ-9 Depression Total Score: 9 03/03/20 24 11:13 AM EDT documented as of this encounter Care Teams Yacht Master Relationship Specialty Start Date End Date Kami Aponte FNP [address] [place] [address] PCP - General Family Medicine 07/18/23 Mireille Patricia Binding Nicker 07/14/24 documented as of this encounter
--- OUTSIDE RECORDS SUMMARY | 2025-04-28 11:44 | XMS_ITS | Clinical Summary ---
Author Organization [employer] Address [address] [place] [address] 7t [place] [address] Care Team Providers Care Bushel Worker Name Role Phone Kami Aponte Primary Care Provider [phone] Allergies No known active allergies Medications * [...] morning. 4 Active benzoyl peroxide 5 % gelIndications :Acne vulgaris APPLY TOPICALLY ONCE A DAY 60 g 2 5 Active tretinoin (Retin-A) 0.025 % gel APPLY TOPICALLY AT BEDTIME 45 g 5 Active norethindrone (Ortho Micronor) 0.35 MG tablet Take 1 tablet (0.35 mg) by mouth Once per day. 28 tablet 12 5 026 Active ferrous sulfate 325 (65 Fe) MG tablet Take 325 mg by mouth with breakfast. 5 026 Active Estradiol (Estrace) 0.01 % cream Insert 0.5 g into the vagina See administration instructions. Nightly x 14 days, then twice weekly ongoing 42.5 g 1 5 Active Active Problems Problem Noted Date Diagnosed [...] and lack of engagement for MH services. Sylvseter carries a diagnosis for Bipolar disorder, ADHD [...] programs and also printed information to contact [facility] Counsel[facility]. Referral was placed on 11/2023 for [...] ID: Sylvester is a 28 y.o. 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 Dx'd with retinal migraine. Had visual field testing with abnormal findings-concern for possible neurologic defect with recommendation for brain MR for further eval Resolved Problems Problem Noted Date Diagnosed Date Resolved Date Attempted suicide ([facility]) 03/05/2023 02/25/2024 Vaginal discharge 02/03/2023 02/25/2024 Assessment [...] 02/25/2024 Severe major depression with psychotic features ([facility]) 08/12/2012 02/25/2024 Encounters Date Type Department Care Team Description 04/28/2025 9:15 AM EST Office Visit [facility] MEDICINE [address] [place] [phone] Sharla Gomez CNM Irregular periods (Primary Dx); Cervical cancer screening; Pelvic and perineal pain 04/28/2025 Travel 04/27/2025 Telephone [facility] MEDICINE [address] [place] [address] Sharla Gomez CNM chart prep 04/22/[address] [address] [place] [facility] Nurse Triage 04/21/[address] [address] [place] Kami, MUSIC DIRECTOR Call Back Request 04/16/[address] [address] [place] [facility] recall 04/07/[address] [address] [place] [facility] MUSIC DIRECTOR Care Management (C3CM TC #1-unable to lvm) 03/03/[address] [address] [place] [facility] MUSIC DIRECTOR Care Management (C3CM follow up call) 02/17/[address] [address] Vonda Chamorro, INSPECTOR COLD WORKING Follow-up 02/11/2025 Orders Only GENERIC EXTERNAL DATA DEPARTMENT Provider, Generic External Data 02/02/[address] [address] Sharla Gomez CNM chart prep 02/02/[address] [address] [place] [facility] (C3CM follow up call) 01/27/2025 Orders Only [facility] External Provider, [facility] 01/27/2025 Travel from Last 3 Months Immunizations Immunization Administration Dates Next Due DTaP 05/08/2001, 9,1997,08/31,1997 HPV, Quadrivalent 06/07/2010,02/01/2010,12/01/19 10 Hep B, Adolescent or Pediatric 1997,1997,1997 Hib (HbOC) 12/16/1999 IPV 05/08/2001, 8,1997,07/02 Influenza Injectable Quadriv alant Preservative Free IIV4 MDCK 07/07/2020 Influenza injectable quadriv alent preservative free 06/07/2016 Influenza, IIV3, injectable 06/22/2012 Influenza, Split (incl. gloria fied surface antigen) 03/11/2012 Influenza, live, intranasal 04/16/2013 Influenza, seasonal, injecta ble, preservative free 06/09/2015 MMR 08/27/1998,06/01/1998 Meningococcal MPSV4 10/12/2008 TD (adult), 2 Lf tetanus tox oid, preservative free, adsorbed 01/21/2019 Tdap 07/02/2024, 1,09/04/2017,12/15 Varicella 01/11/2021, 8,10/09/2007,06/02 Social History Tobacco Use [...] 8 oz) 04/28/2025 9:23 AM EST Height 154.9 cm (5' 1 ) 09/29/2024 11:41 AM EDT Body Mass Index 29.38 09/29/2024 11:41 AM EDT Plan of Treatment Upcoming Encounters Date Type Department Care Team (Late st Contact Info) Description 05/19/2025 10:00 AM EST Office Visit [facility] MEDICINE [address] [place] [address] Sharla Gomez, CNM [address] [place] [address] 05/22/2025 11:15 AM EST Office Visit [facility] MEDICINE [address] [place] [address] [place], [place], MUSIC DIRECTOR [address] [place] [address] 07/15/2025 2:00 PM EST Office Visit [facility] OPTOMETRY [address] [place] [address] Gian, Amberly, OD [address] [place] [address] Health Maintenance Due Date Last Done Comments COVID-19 Vaccine ( season) 2025 01/03/2021, 12/13/2020 Influenza Vaccine (#1) 2025 , 06/07/2016, 06/09/2015, Additional history exists Pap Smear 03/06/2025 03/06/2022, 03/06/2022 SDOH Screening 04/28/2025 04/28/2024 Alcohol/Substance Use Screening 04/28/2026 04/28/2025 Depression Screening 04/28/2026 04/28/2025, 04/28/20 25 Disability Screening 04/28/2026 04/28/2025 Family Planning (PISQ) 04/28/2026 04/28/2025 Tobacco Screening 04/28/2026 04/28/2025 DTaP/Tdap/Td Vaccines (11 - Td or Tdap) [...] AUTO DIFFERENTIAL Routine 02/11/2025 9:39 AM EDT CULTURE, URINE, ROUTINE Routine 02/11/2025 12:00 AM EDT XR HAND 3+ VIEWS RIGHT [...] (02/11/2025 10:15 AM EDT) Color Urine Yellow [facility] Appearance Urine Cloudy [facility] PH 5.5 5.0 - 9.0 [facility] Glucose Urine UA Negative Negative mg/dL [facility] Urine Blood Large (3+)(A) Negative [facility] Specific [place] - Urine 1.025 1.005 - 1.025 [facility] Urine Protein 300 (3+)(A) Neg-Trace mg/dL [facility] Urine Ketones Trace Negative mg/dL [facility] Nitrite Urine Negative Negative [facility] Leukocyte Esterase Urine Small (1+)(A) Negative [facility] RBC Urine 11-20(A) 0 - 2 /HPF [facility] Urine WBC 6-10 0 - 5 /HPF [facility] Urine Squamous Epithelial Cell 6-10 0 - 2 /HPF [facility] Urine Bacteria 2+ None Seen [facility] Hyaline Casts, Urine 0-2 0 - 2 /LPF [facility] 02/11/2025 10:1 5 AM EDT 02/11/2025 10:19 AM EDT Narrative [facility] - 02/11/2025 10:35 AM EDT Urine, Clean Catch Generic External Data Provider LAB URINE ORDERAB LES Final Result Performing Organization Address [facility] Co de Phone Number [facility] [address] [place] [phone] * HCG, Qualitative, Urine (02/11/2025 10:15 AM EDT) Urine NEGATIVE NEGATIVE [facility] Comment:This test was develo ped to detect early . Falsenegative results may occur after the 5th - 7th week ofpregnancy when using this test method. If clinicallyindicated, consider a serum hCG. 02/11/2025 10:1 5 AM EDT 02/11/2025 11:10 AM EDT us Generic External Data Provider LAB URINE ORDERAB LES Final Result Performing Organization Address [facility] Co de Phone Number [facility] [address] [place] [phone] * (ABNORMAL) Urinalysis w/reflex microscopic (02/11/2025 10:15 AM EDT) Color Urine Yellow [facility] Appearance Urine Cloudy [facility] PH 5.5 5.0 - 9.0 [facility] Glucose Urine UA Negative Negative mg/dL [facility] Urine Blood Large (3+)(A) Negative [facility] Specific [place] - Urine 1.025 1.005 - 1.025 [facility] Urine Protein 300 (3+)(A) Neg-Trace mg/dL [facility] Urine Ketones Trace Negative mg/dL [facility] Nitrite Urine Negative Negative [facility] Leukocyte Esterase Urine Small (1+)(A) Negative [facility] 02/11/2025 10:1 5 AM EDT 02/11/2025 10:19 AM EDT Narrative [facility] - 02/11/2025 10:24 AM EDT Urine, Clean Catch us Generic External Data Provider LAB URINE ORDERAB LES Final Result [facility] [address] [place] [phone] * (ABNORMAL) CBC auto differential (02/11/2025 9:39 AM EDT) White Blood Count 7.7 4.8 - 10.8 X10*3/uL [facility] Red Blood Count 4.76 4.20 - 5.50 X10*6/uL [facility] Hemoglobin 12.9 12.0 - 16.0 g/dl [facility] Hematocrit 39.0 37.0 - 47.0 % [facility] Mean Corpuscular Volume 81.9 80.0 - 98.0 fL [facility] Mean Corpuscular Hemoglobin 27.1 27.0 - 33.0 pg [facility] Mean Corpuscular HGB Conc 33.1 31.0 - 35.0 g/dl [facility] Red Cell Distribution Width 13.4 11.0 - 16.0 % [facility] Platelet Count 230 160 - 400 X10*3/uL [facility] Mean Platelet Volume 10.7 9.4 - 12.3 fL [facility] Neutrophils Percent Auto 78.2(H) 45 - 73 % [facility] Imm Gran Pct Auto 0.4 0.0 - 0.4 % [facility] Lymphocytes Percent Auto 12.5(L) 20 - 40 % [facility] Monocytes Percent Auto 5.2 2 - 11 % [facility] Eosinophils Percent Auto 3.2 0 - 4 % [facility] Basophils Percent Auto 0.5 0 - 2 % [facility] NRBC Pct Auto 0.0 0.0 - 0.2 /100WBC [facility] Neutrophils Absolute Auto 6.0 2.0 - 8.3 x10*3/uL [facility] Imm Gran Abs Auto 0.03 0.00 - 0.03 X10*3/uL [facility] Lymphocytes Absolute Auto 1.0(L) 1.2 - 4.9 X10*3/uL [facility] Monocytes Absolute Auto 0.4 0.1 - 1.2 X10*3/uL [facility] Eosinophils Absolute Auto 0.3 0.0 - 0.4 X10*3/uL [facility] Basophils Absolute Auto 0.0 0.0 - 0.2 X10*3/uL [facility] NRBC Abs Auto 0.000 0.0 - 0.012 X10*3/uL [facility] 02/11/2025 9:39 AM EDT 02/11/2025 9:41 AM EDT us Generic External Data Provider LAB BLOOD ORDERAB LES Final Result [facility] [address] [place] [phone] [phone] * (ABNORMAL) Comprehensive Metabolic Panel (02/11/2025 9:39 AM EDT) Sodium 139 135 - 145 mmol/L [facility] Potassium 4.0 3.3 - 5.1 mmol/L [facility] Chloride 105 96 - 108 mmol/L [facility] Carbon Dioxide 27 22 - 29 mmol/L [facility] Anion Gap 11(L) 12 - 20 [facility] Urea Nitrogen (BUN) 8(L) 9 - 16 mg/dL [facility] Creatinine, Serum 0.68 0.5 - 1.4 mg/dL [facility] Creatinine Clr Calc Pharmacy 110.0 [facility] Comment:Provided height and weight: 154.94 cm,68.5 kg.eGFR (calculated from the MDRD study equation) and eCrCl(calculated from the Cockcroft-Gault equation) are based ondifferent parameters and may not yield comparable results.If eCrCl result is absurd, please check patient'sheight/weight. Estimated Glomerular Filt Rate >60 [facility] Comment:Chronic Kidney Disea se: Estimated GFR < 60 mL/min/[id number] Kidney Disease: Estimated GFR < 15 mL/min/1.73m2 Glucose 95 60 - 115 mg/dL [facility] Calcium 9.4 8.4 - 10.2 mg/dL [facility] Bilirubin, Total 0.4 0.0 - 1.0 mg/dL [facility] Aspartate Amino Transferase 26 5 - 31 U/L [facility] Alanine Aminotransferase 28 0 - 31 U/L [facility] Total Protein 7.5 6.5 - 8.0 g/dL [facility] Albumin Level 4.6 3.5 - 5.0 g/dL [facility] Alkaline Phosphatase 69 39 - 117 U/L [facility] 02/11/2025 9:39 AM EDT 02/11/2025 9:41 AM EDT us Generic External Data Provider LAB BLOOD ORDERAB LES Final Result [facility] [address] [place] [phone] * Culture, Urine, Routine (02/11/2025 12:00 AM EDT) Urine Urine specimen obtained by clean catch procedure / Unknown 02/11/2025 02/11/2025 Comment:UACC Narrative [facility] - 02/14/2025 7:20 AM EDT Proteus mirabilis Quant 50,000 to 100,000 cfu/mL Escherichia coli Quant 10,000 to 50,000 cfu/mL Proteus mirabilis: Ampicillin <=2(S) Proteus mirabilis: Cefazolin (Urine) 4(S) Proteus mirabilis: Cefepime <=0.12(S) Proteus mirabilis: Ceftriaxone <=0.25(S) Proteus mirabilis: Ciprofloxacin <=0.06(S) Proteus mirabilis: Gentamicin <=1(S) Proteus mirabilis: Nitrofurantoin 64(R) Proteus mirabilis: Trimethoprim/Sulfamethoxazole <=20(S) Escherichia coli: Ampicillin >=32(R) Escherichia coli: Cefazolin (Urine) <=1(S) Escherichia coli: Cefepime <=0.12(S) Escherichia coli: Ceftriaxone <=0.25(S) Escherichia coli: Ciprofloxacin <=0.06(S) Escherichia coli: Gentamicin <=1(S) Escherichia coli: Nitrofurantoin <=16(S) Escherichia coli: Trimethoprim/Sulfamethoxazole <=20(S) Specimen Source: Urine clean catch Generic External Data Provider LAB MICROBIOLOGY - GENERAL ORDERABLES Final Result [facility] [address] [place] [phone] * XR Hand 3+ Views Right (01/27/2025 12:27 PM EDT) Anatomical Region Laterality Modality Upper Extremities, Hand Right Radiogra phic Imaging 01/27/2025 12:2 7 PM EDT Narrative 01/27/2025 1:36 PM EDT [address] [address] XRay Report Signed Patient: Sylvester Bates MR#: [id number] : 1995 Acct:[id number] Age/Sex: 29 / F ADM Date: 01/27/25 Loc: HO.ED Attending Dr: Ordering Physician: Trina Cooper Date of Service: 01/27/25 Procedure(s): XR hand RT min 3V Accession Number(s): [id number] cc: Trina Cooper; [facility] MUSIC DIRECTOR EXAMINATION: XR HAND 3 OR MORE VIEWS [...] Tristan Arenas MD 01/27/2025 01:33 PM EDT RP Dictated By: Tristan Arenas MD Signed By: <Electronically signed by Tristan Arenas MD in OV> 01/27/25 1333 DD/ 1227 TD/TT: 01/27/25 1326 Inspector Water Pollution Control: Procedure Note Donotuseinterpreter, Image - 01/27/2025 [place] [address] XRay Report Signed Patient: Sylvester Bates NMR#: [id number] : 1995Acct:[id number] Age/Sex: 29 / FADM Date: 01/27/25 Loc: HO.ED Attending Dr: Ordering Physician: Trina Cooper Date of Service: 01/27/25 Procedure(s): XR hand RT min 3V Accession Number(s): [id number] cc: Trina Cooper; [facility] MUSIC DIRECTOR EXAMINATION: XR HAND 3 OR MORE VIEWS [...] 01/27/25 1333 DD/ 1227 TD/TT: 01/27/25 1326 Inspector Water Pollution Control: [facility] External Provider IMG XR PROCEDURES Edited Result - Final * HIV-1/2 Antigen and Antibodies, Fourth Generation, with Reflexes (11/20/2022 1:28 PM EDT) HIV Antigen/Antibody, 4th Generation NON-REAC TIVE NON-REAC TIVE [employer] Comment: HIV-1 antigen and HIV-1/HIV-2 antibodies were [...] purpose. For additional information please refer to http://education.VenJuvo.YourSports/faq/DSR695 (This link is being provided for informational/ educational purposes only.) The performance of this assay has not been clinically validated in patients less than 2 years old. 11/20/2022 1:28 PM EDT 11/20/2022 1:29 PM EDT Narrative [facility] - 11/21/2022 7:30 PM EDT FASTING:UNKNOWN FASTING: UNKNOWN Sharla Gomez CNM LAB BLOOD ORDERABLES Dipti chavez Result [facility] [address], [place] [address] [employer] [place] [address] [place] [address] * THINPREP TIS PAP (03/06/2022 12:23 PM [...] was manually screened according to routine procedures. Aerospace Mechanic : SEE COMMENT [facility] Comment: BK,CT(ASCP) CT screening location: [address] Infection Fungal organisms morphologically consistent with Ganesh spp. [facility] Interpretation/R esult: Negative for intraepithelial lesion or malignancy. [facility] LMP: 03/05/2022 [facility] Prev. BX: NONE [facility]IV[facility] Prev. PAP: NONE [facility]IVEN [facility] Review Aerospace Mechanic : SEE COMMENT [facility] Comment: RK, CT(ASCP) CT screening location: [address] [address] SOURCE: [facility] Statement Of Adequacy: SEE COMMENT [facility] Comment: Satisfactory for evaluation. Endocervical/transformation zone component present. 03/06/2022 12:2 3 PM EDT Sharla ALLEN LAB PATHOLOGY ORDERABLES Final Result [facility] [address] * HEPATITIS C AB W/REFL TO HCV RNA, QN, PCR (10/20/2021 1:20 PM EDT) HEPATITIS C ANTIBODY NON-REACT [facility] NON-REACT [facility] INDEX 0.03 <1.00 [facility] Comment: HCV antibody was non-reactive. There is no laboratory evidence of HCV infection. In most cases, no further action is required. However, if recent HCV exposure is suspected, a test for HCV RNA (test code 72603) is suggested. For additional information please refer to http://education.VenJuvo.YourSports/faq/CBZ91r9 (This link is being provided for informational/ educational purposes only.) 10/20/2021 1:20 PM EDT Joan RAMSEY HISTORICAL/NON ORDERABLE LABS Final Result [facility] [address] from Last 3 Months or Most Recently Relevant to Health Maintenance Insurance [employer] C3 * Guarantor: Sylvester Bates Account Type Relation to Patient Date of Phone Billing Address Personal/Family Self [address] Care Teams Bushel Worker Relationship Specialty Start Date End Date Kami Aponte FNP [address] [place] [phone] PCP - General Family Medicine 07/18/23 Mireille Patricia Java Security Architect 07/14/24
--- OUTSIDE RECORDS SUMMARY | 2025-04-28 11:44 | XMS_ITS | Encounter Summary ---
Author Organization [employer] Address [address] [place] [address] 7 [place] [address] Care Team Providers Care Slot Machine Floor Person Name Role Phone Angelique Kim [facility] Primary Care Provider [phone] [facility] Primary Care Provider [phone] Encounter Details Date Type Department Care Team ([facility] st Contact Info) Description 05/25/2023 Orders Only [facility] MEDICINE [address] [place], [place] [phone] [facility] [address] [place] [address] Social History Tobacco Use Types Packs/Day Years [...] Description 05/19/2025 10:00 AM EST Office Visit [facility] MEDICINE [address] [place] [address] Sharla Gomez CNM [address] [place] [address] 05/22/2025 11:15 AM EST Office Visit [facility] MEDICINE [address] [place] [address] ReardanKami vaca FNP [address] [place] [address] 07/15/2025 2:00 PM EST Office Visit [facility] OPTOMETRY [address] [place] [address] Gian, Amberly, OD [address] [place] [address] documented as of this encounter Visit Diagnoses Not on filedocumented in this encounter Additional Health Concerns Assessment Noted Time PHQ-9 Depression Total Score: 0 03/05/20 23 9:28 AM EDT documented as of this encounter Care Teams Slot Machine Floor Person Relationship Specialty Start Date End Date Angelique Kim FNP [address] [place] [address] PCP - General Family Medicine 02/06/23 07/17/23 ReardanKami FNP [address] [place] [address] PCP - General Family Medicine 07/18/23 Mireille Patricia Pressing Machine Operator 07/14/24 documented as of this encounter
--- OUTSIDE RECORDS SUMMARY | 2025-04-28 11:44 | XMS_ITS | Encounter Summary ---
Author Organization [employer] Address [address] [place] [address] 7 [place] [address] Care Team Providers Care Elevator Erector Name Role Phone Kami Aponte MILLSTONE CLEANER Primary Care Provider Reason for Visit * Reason Onset Date Comments chart prep 04/27/2025 Encounter Details Date Type Department Care Team ([facility] Contact Info) Description 04/27/2025 Telephone [facility] MEDICINE [address] [place] [address] Sharla Gomez, TIFFANY [address] [place] [address] chart prep Social History Tobacco Use Types Packs/Day Years [...] encounter Miscellaneous Notes * Telephone Encounter - Kendra Lino [place] - 04/27/2025 9:39 AM EST Chart Prep Labs: not applicable Images: not applicable Referrals: not applicable Vaccines due: Covid and Flu Screenings: pap smear Overdue care gaps: SBIRT, PHQ-9, AMRITA-7, Oral health screening, and Disability screen documented in this encounter Plan of Treatment Upcoming Encounters Date Type Department Care Team (Late st Contact Info) Description 05/19/2025 10:00 AM EST Office Visit [facility] MEDICINE [address] [place] [address] Sharla Gomez CNM [address] [place] [address] 05/22/2025 11:15 AM EST Office Visit [facility] MEDICINE [address] [place] [address] [place], Kami, MILLSTONE CLEANER [address] [place] [address] 07/15/2025 2:00 PM EST Office Visit [facility] OPTOMETRY [address] [place] [address] Amberly Springer, OD [address] [place] [address] documented as of this encounter Visit Diagnoses Not on filedocumented in this encounter Additional Health Concerns Assessment Noted Time PHQ-9 Depression Total Score: 9 03/03/20 24 11:13 AM EDT documented as of this encounter Care Teams Elevator Erector Relationship Specialty Start Date End Date PomonaKami FNP [address] [place] [address] PCP - General Family Medicine 07/18/23 Mireille Patricia Building Construction Engineer 07/14/24 documented as of this encounter
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
[2025-04-29 05:13] LABS: Follicle Stimulating Hormone 3.0 mIU/mL
[2025-05-03 09:34] LABS: Estradiol Ultra Sensitive 37 pg/mL
== END 2025-04-28 10:11 | disposition home or self-care (01) ==
LOC: HO.HHCL 10:10
PROVIDERS: Advanced Practice Midwife; PCP Registered Nurse; Visit Provider Registered Nurse
DX: N92.6 Irregular menstruation, unspecified (principal)
CPT/HCPCS: 36415; 82670; 83001; 84443; 84702

== ENCOUNTER 2025-04-28 17:16 | Outpatient (REF) | payer MEDICAID, SELFPAY | END 2025-04-28 17:17 | disposition home or self-care (01) | LOC: HO.HHCLNP 17:16 | PROVIDERS: Visit Provider Advanced Practice Midwife | DX: Z12.4 Encounter for screening for malignant neoplasm of cervix (principal); Z11.51 Encounter for screening for human papillomavirus (HPV) | CPT/HCPCS: 87626; 88175 ==

== ENCOUNTER 2025-05-28 14:20 | Outpatient (REF) | payer MEDICAID, SELFPAY ==
--- NOTE | ~2025-05-28 | US_ITS ---
CLINICAL HISTORY: AUB US pelvis transabdominal and transvaginal with Doppler Comparison: None provided Findings: Transabdominal scanning performed for overall anatomy. Transvaginal scanning performed for additional detail. Anteverted uterus is 7.6 cm length. Normal myometrium. Endometrium 7.4 mm thickness. Right ovary 3.6 x 2.1 x 2.1 cm. Left ovary 3.2 x 2.5 x 1.9 cm. Normal color Doppler with arterial/venous spectral tracing of both ovaries. Bilateral avascular hypoechoic almost certainly benign ovarian cysts noted. No free fluid. IMPRESSION: 1. No acute findings or evidence of ovarian torsion. This document has been electronically signed by: Murphy Sheth MD on 05/29/2025 10:57:39
--- OUTSIDE RECORDS SUMMARY | 2025-05-28 21:59 | XMS_ITS | Encounter Summary ---
Author Organization [employer] Address [address] [place] [address] 7 [place] [address] Care Team Providers Care Airplane Rigger Name Role Phone Fadi [facility] Primary Care Provider [phone] Angelique Kim [facility] Primary Care Provider [phone] [place] [facility] Primary Care Provider [phone] Reason for Visit * Reason Onset Date Comments Results 11/21/2022 Encounter Details Date Type Department Care Team ([facility] st Contact Info) Description 11/21/2022 Telephone [facility] MEDICINE [address] [place], [place] [phone] [place] Kami [facility] [address] [place], [place] [phone] Results Social History Tobacco Use Types Packs/Day [...] to message above. Please contact pt at [phone] * Telephone Encounter - Drea Manjarrez - 11/21/2022 4:00 PM EDT Tc from pt requesting a call back in regards to lab results. Please contact pt at [phone] documented in this encounter Plan of Treatment Upcoming Encounters Date Type Department Care Team (Late st Contact Info) Description 07/15/2025 2:00 PM EST Office Visit [facility] OPTOMETRY [address] [place] [address] Gian, Amberly, OD [address] [place] [address] documented as of this encounter Visit Diagnoses Not on filedocumented in this encounter Care Teams Airplane Rigger Relationship Specialty Start Date End Date [place]woodKami [facility] [address] [place] [address] PCP - General Family Medicine 08/15/22 02/05/23 Angelique Kim FNP [address] [place] [address] PCP - General Family Medicine 02/06/23 07/17/23 [place]ami FNP [address] [place] [address] PCP - General Family Medicine 07/18/23 Mireille Jimenez Manager 07/14/24 documented as of this encounter
--- OUTSIDE RECORDS SUMMARY | 2025-05-28 21:59 | XMS_ITS | Encounter Summary ---
Author Organization [employer] Address [address] [place] [address] 7 [place] [address] Care Team Providers Care Ditto Machine Operator Name Role Phone Angelique Kim [facility] Primary Care Provider [phone] [facility] Primary Care Provider [phone] Encounter Details Date Type Department Care Team ([facility] st Contact Info) Description 05/25/2023 Orders Only [facility] MEDICINE [address] [place], [place] [phone] [facility] [address] [place] [address] Social History Tobacco Use Types Packs/Day Years [...] Description 07/15/2025 2:00 PM EST Office Visit [facility] OPTOMETRY [address] [place], [place] [phone] Amberly Springer, OD [address] [place] [address] documented as of this encounter Visit Diagnoses Not on filedocumented in this encounter Additional Health Concerns Assessment Noted Time PHQ-9 Depression Total Score: 0 03/05/20 23 9:28 AM EDT documented as of this encounter Care Teams Ditto Machine Operator Relationship Specialty Start Date End Date Angelique Kim FNP [address] [place] [address] PCP - General Family Medicine 02/06/23 07/17/23 [place]ami FNP [address] [place] [address] PCP - General Family Medicine 07/18/23 Mireille Patricia Agile Scrum Master 07/14/24 documented as of this encounter
--- OUTSIDE RECORDS SUMMARY | 2025-05-28 21:59 | XMS_ITS | Clinical Summary ---
Author Organization [facility] 444 [facility] Address [address] [place] [phone] Phone Care Team Providers Care Shell Trim Operator Name Role Phone Physician, No Pcp Primary [...] the morning. 30 each 1 09/30/2024 Active Active Problems Problem Noted Date [...] (07/07/2024): 3 hr GTT WNL Attempted suicide 06/04/2024 Major depressive disorder 06/04/2024 Family history of Down syndrome 06/04/2024 Overview (06/04/2024): aunt Encounter for supervision of normal , a ntepartum 05/12/2024 Overview (09/12/2024): 1. [facility] site: [address] 2. Delivery site: [facility] 3. Mobile Mommas: No 4. Dating criteria: LMP confirmed by 1st trimester ultrasound 5. Blood type: AB pos 6. 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 GBS: Positive urine Date: 02/2024 7. FOB name: Janeth Stevens [phone] 8. Plans A. Epidural or other pain [...] Active HSV lesion at 36 weeks Scheduled /2 at 8am Assessment & Plan (09/17/2024 7:00 [...] disorder (ADHD), combined type 03/05/2023 Bipolar disorder 03/05/2023 Overview (09/12/2024): Psychiatric Hx-chart with previous diagnosis of bipolar disorder, ADHD, cognitive delay, anxiety, hx of suicide attempt. No current medications. Not established with therapist. States heavy marijuana use is how she victoriano with mood changes--anger, irritability. Difficulty focusing. 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 12/22/2020 ordered [...] / suicide attempts / [facility] in [facility] past-2012. 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 pt admitted x 3 Suicide attempt ([facility] V24 , [facility] V28) 2012 DX:Suicide attempt ([facility]); CO MMENT: OD on pills. pt has had multiple attempts Adhd 2012 DX:ADHD; COMMENT : dx at [facility] Maternal varicella, non-immune 2018 D X:Maternal varicella, [...] Record ed Within the last 3 months, candice smith many times did you visit the emergency [...] for your loved ones. For example, child daycare worker or elderly care for an older adult? [...] N Livin g gioale xis Complications:None Delivery Location:[facility] Comments:2 vessel cord , induced - post dates 7 2017 Term 41w 4d 3629 g (128 oz) F Vag-S pont Epidur al,Loc al N Livin g Julianna Alonso Complications:None Delivery Location:[facility] Comments:induced - pos t dates 2020 Term F CS-LT ranv Livin g 2024 Term 39w 0d 0h 02m 0h 02m 3130 g (110.4 oz) M CS-LT ranv Spinal N Livin g 8 9 Anson sullivan MD Complications:None Delivery Location:[facility] ([facility]) Last Filed Vital Signs Vital [...] Cancer Screening: Pap Smear 03/13/2027 03/13/2024, 03/13/2024, 07/07/2020 DTaP,Tdap,and Td Vaccines (11 - Td or [...] Screen for STD (sexually transmitted disease) HM PAP SMEAR Routine 03/13/2024 from Last 3 Months or Most Recently Relevant to Health Maintenance Results * Hepatitis C antibody (07/07/2024 9:26 AM EST) Hepatitis C Antibody Negative Negative LAB CHEMISTRY METHOD 07/07/2024 12:07 PM EST [facility] Blood Venous blood specimen / Unknown Venipuncture / Unknown 07/07/2024 9:26 AM EST 07/07/2024 9:26 AM EST Marilynn Chavez [facility] BLOOD ORDERABLES Final Res ult Performing Organization Address [facility]/ZIP Co de Phone Number [facility] [address] [place] [address], [place] [phone] * HIV 1,2 antibody, p24 antigen with reflex to differentiation (07/07/2024 9:26 AM EST) HIV Combo AB/AG Negative Negative LAB CHEMISTRY METHOD 07/07/2024 12:07 PM EST [facility] Blood Venous blood specimen / Unknown Venipuncture / Unknown 07/07/2024 9:26 AM EST 07/07/2024 9:26 AM EST Narrative [facility] - 07/07/2024 12:07 PM EST This assay is a 4th generation assay allowing for earlier detection of HIV infection by detecting the presence of the HIV-1 p24 antigen as well as the traditional antibodies to HIV type 1 (including group O) and type 2. Use of a 4th generation assay is the current CDC recommendation for HIV screening. Marilynn Chavez [facility] BLOOD ORDERABLES Final Res ult Performing Organization Address City/[facility]/ZIP Co de Phone Number [facility] [address] [place] [address], [place] [phone] * Hm Pap Smear (03/13/2024) HM Pap smear No interpreta tion,abstr acted Historical Provider HEALTH [...] currently active code status orders. Care Teams Shell Trim Operator Relationship Specialty Start Date End Date Physician, No Pcp PCP - General 06/03/24
--- OUTSIDE RECORDS SUMMARY | 2025-05-28 21:59 | XMS_ITS | Encounter Summary ---
Author Organization [employer] Address [address] [place] [address] 7 [place] [address] Care Team Providers Care Railcar Brake Operator Name Role Phone Fadi [facility] Primary Care Provider [phone] Reason for Visit * Reason Onset Date Comments Medication Question 09/24/2024 Encounter Details Date Type Department Care Team ([facility] Contact Info) Description 09/24/2024 Telephone [facility] MEDICINE [address] [place], [place] [phone] [place] Kami [facility] [address] [place] [address] Medication Question Social History Tobacco Use Types [...] 1:33 PM EDT TC placed to patient [phone] regarding below message. RN informed patient she has to make a appt with a provider to discuss control options. Pt was scheduled for 09/29/24 at 1130 with Sharla Gomez the insert operator. Patient also informed RN that she is [...] Description 07/15/2025 2:00 PM EST Office Visit [facility] OPTOMETRY [address] [place] [phone] Amberly Springer, OD [address] [place] [address] documented as of this encounter Visit Diagnoses Not on filedocumented in this encounter Additional Health Concerns Assessment Noted Time PHQ-9 Depression Total Score: 9 03/03/20 24 11:13 AM EDT documented as of this encounter Care Teams Railcar Brake Operator Relationship Specialty Start Date End Date Kami Aponte FNP [address] [place] [address] PCP - General Family Medicine 07/18/23 Mireille Patricia Plastic Welder 07/14/24 documented as of this encounter
--- OUTSIDE RECORDS SUMMARY | 2025-05-28 21:59 | XMS_ITS | Encounter Summary ---
Author Organization [employer] Address [address] [place] [address] 7 [place] [address] Care Team Providers Care Moid Middle School Teacher Name Role Phone Angelique Kim Primary Care Provider [phone] [facility] ROXY Primary Care Provider [phone] Encounter Details Date Type Department Care Team ([facility] Contact Info) Description 02/27/2023 Orders Only [facility] MED & PEDS [address] [place] [address] Angelique Kim FNP [address] [place] [address] Social History Tobacco Use Types Packs/Day Years [...] Upcoming Encounters Date Type Department Care Team ([facility] Contact Info) Description 07/15/2025 2:00 PM EST Office Visit [facility] OPTOMETRY [address] [place], [place] [phone] Amberly Springer, OD [address] [place] [address] documented as of this encounter Visit Diagnoses Not on filedocumented in this encounter Care Teams [employer] Teacher Relationship Specialty Start Date End Date Angelique Kim FNP [address] [place] [address] PCP - General Family Medicine 02/06/23 07/17/23 Kami Aponte FNP [address] [place] [address] PCP - General Family Medicine 07/18/23 Mireille Patricia Aquatic Scientist 07/14/24 documented as of this encounter
--- OUTSIDE RECORDS SUMMARY | 2025-05-28 21:59 | XMS_ITS | Encounter Summary ---
Author Organization [employer] Address [address] [place] [address] 7 [place] [address] Care Team Providers Care Clerk Supervisor Name Role Phone Kami Aponte BLAST SETTER Primary Care Provider [phone] Encounter Details Date Type Department Care Team ([facility] Contact Info) Description 05/04/2025 Results Follow-Up [facility] MEDICINE [address] [place] [address] Sharla Gomez CNM [address] [place] [address] FSH, Pap Smear Social History Tobacco Use Types Packs/Day Years [...] Description 07/15/2025 2:00 PM EST Office Visit [facility] OPTOMETRY [address] [place] [address] Gian, Amberly, OD [address] [place] [address] documented as of this encounter Visit Diagnoses Not on filedocumented in this encounter Additional Health Concerns Assessment Noted Time PHQ-9 Depression Total Score: 2 04/28/20 25 10:04 AM EST documented as of this encounter Care Teams Clerk Supervisor Relationship Specialty Start Date End Date Kami Aponte FNP [address] [place] [address] PCP - General Family Medicine 07/18/23 Mireille Patricia Development Expert 07/14/24 documented as of this encounter
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
--- OUTSIDE RECORDS SUMMARY | 2025-05-28 21:59 | XMS_ITS | Clinical Summary ---
Author Organization [facility] Address [address] [place] [address] Care Team Providers Care Meat Hanger Name Role Phone Ref, [facility] Primary Care Provider Unavailabl e Allergies No known active allergies Social History [...] of Treatment Not on file Care Teams Meat Hanger Relationship Specialty Start Date End Date RefJake DO NOT EDIT THIS RECORD VIA PROVIDER ON THE FLY PCP - General Women Designer 02/07/21
--- OUTSIDE RECORDS SUMMARY | 2025-05-28 22:00 | XMS_ITS | Clinical Summary ---
Author Organization [employer] Address [address] [place] [address] 7[address] [place] [address] Care Team Providers Care Hospice Care Consultant Name Role Phone Kami Aponte SOLAR DESIGNER/INSTALLER Primary Care Provider [phone] Allergies No known active allergies Medications * This document contains information received from the source organization and may not represent a complete record from that organization. pyridoxine (Vitamin B-6) 25 MG tablet Active ondansetron (Zofran) 8 MG tablet Active doxylamine (Unisom) 25 MG tablet Active multivitamin () 27-0.8 MG tablet Take 1 tablet by mouth in the morning. 024 Active benzoyl peroxide 5 % gelIndications:A cne vulgaris APPLY TOPICALLY ONCE A DAY 60 g 2 025 Active tretinoin (Retin-A) 0.025 % gel APPLY TOPICALLY AT BEDTIME 45 g 025 Active ferrous sulfate 325 (65 Fe) MG tablet Take 325 mg by mouth with breakfast. 025 2025 Active Estradiol (Estrace) 0.01 % cream Insert 0.5 g into the vagina See administration instructions. Nightly x 14 days, then twice weekly ongoing 42.5 g 1 025 Active levonorgestrel-e thinyl estradiol (Aviane) 0.1-20 MG-MCG tabletIndication s:Encounter for counseling regarding contraception Take 1 tablet by mouth Once per day. 28 tablet 12 025 2025 Active norethindrone (Ortho Micronor) 0.35 MG tablet Take 1 tablet (0.35 mg) by mouth Once per day. 28 tablet 12 025 2024 Discontinued metroNIDAZOLE (Flagyl) 500 MG tablet Take 1 tablet (500 mg) by mouth 2 times daily for 7 days. 14 tablet 025 2024 Discontinued metroNIDAZOLE (Metrogel) 0.75 % vaginal gel Insert 1 Application. into the vagina at bedtime for 5 doses. 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 Sylvester carries a diagnosis for Bipolar [...] programs and also printed information to contact [facility]. Referral was placed on 11/2023 for [...] ID: Sylvester is a 28 y.o. 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 Dx'd with retinal migraine. Had visual field testing with abnormal findings-concern for possible neurologic defect with recommendation for brain MR for further eval Resolved Problems Problem Noted Date Diagnosed Date Resolved Date Attempted suicide ([facility]) 03/05/2023 02/25/2024 Vaginal discharge 02/03/2023 02/25/2024 [...] 02/25/2024 Severe major depression with psychotic features ([facility]) 08/12/2012 02/25/2024 Encounters Date Type Department Care Team Description 05/22/2025 11:15 AM EST Office Visit [place] [address] Kami Aponte FNP Irregular periods (Primary Dx); Encounter for counseling regarding contraception; Encounter for immunization 05/22/2025 Travel 05/20/2025 Telephone [facility] [place] [address] Kami Aponte FNP Nurse Triage 05/18/2025 Orders Only [facility] [place] [place] [address] Yaritza Whitlock CNM 05/18/2025 Telephone [facility] [place] [address] Annabel Aldana MA 05/11/2025 Orders Only [facility] [place] [address] Yaritza Whitlock CNM 05/08/2025 Telephone [facility] [place] [place] [address] Kami Aponte FNP Lab Orders 05/05/2025 Orders Only [facility] [place] [address] Yaritza Whitlock CNM Irregular periods (Primary Dx) 05/05/2025 Telephone [facility] [place] [address] Kami Aponte FNP Care Management (C3CM follow up call) 05/04/2025 Results Follow-Up [facility] [place] [address] Yaritza Whitlock CNM FSH, Pap Smear 04/28/2025 9:15 AM EST Office Visit [facility] [place] [address] Yaritza Whitlock CNM Irregular periods (Primary Dx); Cervical cancer screening; Pelvic and perineal pain 04/28/2025 Orders Only [address] [address] Yaritza Whitlock CNM 04/28/2025 Travel 04/27/[address] [address] Yaritza Whitlock CNM chart prep 04/22/[address] [address] [place] FNP Nurse Triage 04/21/[address] [address] Kami Aponte FNP Call Back Request 04/16/[address] [address] Kami Aponte FNP Dec recall 04/07/[address] [address] [place] vaca FNP Care Management (C3 TC #1-unable to lvm) 03/03/[address] [address] Kami Aponte FNP Care Management (C3 follow up call) from Last 3 Months [...] 04/16/2013 Influenza, seasonal, injecta ble, preservative free 05/22/2025,06/09/2015 MMR 08/27/1998,06/01/1998 Meningococcal MPSV4 10/12/2008 TD (adult), 2 Lf tetanus tox oid, preservative free, adsorbed 01/21/2019 Tdap 07/02/2024,,09/04/2017,12/15 Varicella 01/11/2021, 8,10/09/2007,06/02 Social History Tobacco Use Types Packs/Day Years Used Date Smoking Tobacco: Never Passive Smoke Exposure: Never Smokeless Tobacco: Never Tobacco Cessation:Counseling Given: Not Answered Depression Answer Date Recorded Patient Health Questionnaire-9 Score 0 05/22/2025 Patient Health Questionnaire-9 Score 0 05/22/2025 Last PHQ-9: Questionnaire Data Not on file 1 07/23/2024 Housing Stability Answer Date Recorded What is your housing situation today? I have sourav barajas 05/22/[address] you li ve. Do you have problems with any of the following? None of the above 05/22/2025 Food Insecurity Answer Date Recorded Within the past 12 months, y ou worried that your food would run out before you got money to buy more: Never True 05/22/2025 Within the past 12 months,th e food you bought just didn't last and you didn't have enough money to get more: Never True 10/2024 Transportation Answer Date Recorded In the past 12 months, has l ack of transportation kept you from medical appts, meetings, work or from getting things needed for daily living? No 05/22/2025 Utilities Answer Date Recorded In the past 12 months, has t he electric, gas, oil or water company threatened to shut off services in your home? No 05/22/2025 Depression Answer Date Recorded Patient Health Questionnaire-2 Score 0 05/22/2025 Internet Access Answer Date Recorded Internet Access Q1 Yes 05/22/2025 Internet Access Q2 Not on file 05/22/2025 Comments Unknown Intention Date Recorded No desire to become (finding) 1 06/28/2024 Sex and Gender Information Value Date Recorded Sex Assigned at Female 04/17/2022 10:16 AM EDT Legal Sex Female 10:16 AM EDT Gender Identity Female 10/27/2022 11:49 AM EDT Sexual Orientation Bisexual 10/27/2022 11 :49 AM EDT Last Filed Vital Signs Vital Sign Reading Time Taken Comments Blood Pressure 120/86 05/22/2025 11:37 AM EST Pulse 88 05/22/2025 11:37 AM EST Temperature 36.4 C (97.5 F) 05/22/2025 11:37 AM EST Respiratory Rate 18 05/22/2025 11:37 AM EST Oxygen Saturation 98% 04/28/2025 9:23 AM EST Inhaled Oxygen Concentration - - Weight 72.8 kg (160 lb 9.6 oz) 05/22/2025 11:37 AM EST Height 154.9 cm (5' 1 ) 05/22/2025 11:37 AM EST Body Mass Index 30.35 05/22/2025 11:37 AM EST Plan of Treatment Upcoming Encounters Date Type Department Care Team (Late st Contact Info) Description 07/15/2025 2:00 PM EST Office Visit [facility] [address] [place], [place] [phone] Gian, Amberly, OD [address] [place] [address] Health Maintenance Due Date Last Done Comments COVID-19 Vaccine ( season) 2025 01/03/2021, 12/13/2020 Alcohol/Substance Use Screening 04/28/2026 04/28/2025 Disability Screening 04/28/2026 04/28/2025 Family Planning (PISQ) 04/28/2026 04/28/2025 Depression Screening 05/22/2026 05/22/2025, 05/22/20 25 SDOH Screening 05/22/2026 05/22/2025 Tobacco Screening 05/24/2026 05/24/2025 HPV/Cotest 04/28/2028 04/28/2025 Pap Smear 04/28/2028 04/28/2025, 02/16, 03/06/2022 DTaP/Tdap/Td Vaccines (11 - Td or Tdap) [...] Completed 10/20/2021, 021 HIV Screening Completed 11/20/2022, 10/2021, 04/20/2021 Influenza Vaccine Completed 05/22/2025, , 06/07/2016, Additional history exists Hepatitis A Vaccines Aged Out No long [...] Procedure Name Priority Date/Time Associated Diagnosis Comments POCT , URINE Routine 05/22/2025 12:13 PM EST Encounter for counseling regarding contraception PAP SMEAR Routine 04/28/2025 10:30 AM EST Cervical cancer screening HPV DNA, LOW/HIGH RISK Routine 04/28/2025 10:30 AM EST HCG, TOTAL, QN Routine 04/28/2025 10:16 AM EST Irregular periods ESTRADIOL Routine 04/28/2025 10:16 AM EST Irregular periods FSH Routine 04/28/2025 10:16 AM EST Irregular periods TSH W/REFLEX TO FT4 Routine 04/28/2025 1 0:16 AM EST Irregular periods HIV 1/2 ANTIGEN/ANTIBODY, FOURTH GENERATION W/RFL Routine 11/20/2022 1:28 PM EDT ZZZ HISTORICAL HEPATITIS C AB W/REFL TO HCV RNA, QN, PCR Routine 10/20/2021 1:20 PM EDT from Last 3 Months or Most Recently Relevant to Health Maintenance Results * POCT Urine (05/22/2025 12:13 PM EST) Preg Test, Ur Negative Negative, Indeterminate, None Detected, Trace, 3+, Specimen unsatisfactory for evaluation, Weakly Positive, 1+, 2+ Urine 05/22/2025 12:1 3 PM EST [facility] POINT OF CARE TEST ENTER/EDIT ORDERABLES Final Result * HPV DNA, Low/High Risk (04/28/2025 10:30 AM EST) HPV High Risk Negative Negative [facility] HPV Genotype 16 Negative Negative [facility] HPV Genotype 18 Negative Negative [facility] Comment:HPV testing performe d at [facility] (CLIA#[id number]), [address] [place] [address].Testing for HPV was performed using the Rashid ARLETH 6800system. The presence of HPV in the female genital tract isassociated with a number of diseases, including cervicalcarcinoma. The HPV DNA high risk pool tests for HPV 31, 33,35, 39, 45, 51, 52, 56, 58, 59, 66 and 68. The testing forHPV 16 and 18 genotypes has also been performed. A positiveresult indicates detection of nucleic acid sequences fromone or more subtypes, whereas a negative result indicatessuch sequences were not detected. 04/28/2025 10:3 0 AM EST 05/07/2025 10:37 AM EST Yaritza Whitlock CNM LAB BLOOD ORDERABLES Dipti chavez Result [facility] [address] [place] [phone] * Pap Smear (04/28/2025 10:30 AM EST) Swab Cervix uteri structure / Unknown 04/28/2025 10:30 AM EST 04/29/2025 12:40 PM EST Narrative [facility] - 05/11/2025 10:13 AM EST ----- ------- Name: Sylvester Bates Age/Sex: 29/F : 1995 Unit#: [id number] Attend Dr: YARITZA WHITLOCK CNM Re04/28/25 Status: DEP REF Location: [facility] Disch: ----- ------- SPEC : [id number] RECD: 04/29/25 STATUS: JOSE LUIS NEVAREZ NUM: [id number] DAVID: 04/28/25-[address]: YARITZA WHITLOCK CNM ENTERED: 04/29/25 SP TYPE: Pap Smr OTHR DR: ORDERED: Pap Smear, PAP path review Interpretation ABNORMAL PAP TEST. Satisfactory for evaluation, with atypical squamous cells of undetermined significance (ASC-US). Coccobacilli consistent with shift in vaginal loli. HPV High Risk: Negative HPV Genotyping 16: Negative HPV Genotyping 18: Negative Clinical Information LMP: Previous PAP test:2021 NIL Other surgery: Other history: Material Received ThinPrep-Cervix ----- ------- Signed (signature on file) Margaret Blanc MD 05/11/25 1013 ----- ------- END OF REPORT Yaritza Whitlock [facility] CYTOLOGY ORDERABLES F inal Result Performing Organization Address [facility] de Phone Number [facility] [address] [place] [phone] * TSH W/Reflex to FT4 (04/28/2025 10:16 AM EST) TSH reflex Free T4 1.79 0.32 - 4.0 uIU/mL [facility] Blood Venous blood specimen / Unknown 04/28/2025 10:16 AM EST 04/28/2025 1:34 PM EST Yaritza Whitlock [facility] LAB BLOOD ORDERABLES Dipti l Result Performing Organization Address [facility] Co de Phone Number [facility] [address] [place] [address] [phone] * Estradiol (04/28/2025 10:16 AM EST) Estradiol Ultra Sensitive 37 pg/mL [facility] Comment:Female Reference Ran ges for Estradiol, Ultrasensitive (pg/mL): Follicular Phase: 39-375 Luteal Phase: 48-440 Postmenopausal Phase: < or = 10This test was developed and its analytical performancecharacteristics have been determined by [facility].It has not been cleared or approved by the FDA. This assayhas been validated pursuant to the CLIA regulations and isused for clinical purposes.THIS TEST WAS PERFORMED AT:[facility] [address] [employer] [id number] [place] [address]HBBYBMIKE SKELTON MD,PHD,JESUS Blood Venous blood specimen / Unknown 04/28/2025 10:16 AM EST 04/28/2025 11:10 AM EST us Yaritza Whitlock [facility] LAB BLOOD ORDERABLES Dipti l Result [facility] [address] [place] [phone] * hCG, Total, Quantitative (04/28/2025 10:16 AM EST) HCG Quantitative <2 mIU/mL [facility] Comment:Weeks post LMP Appro ximate hCG(Last Menstrual Period) Range (mIU/ml)3 - 4 weeks 9 - 1304 - 5 weeks 75 - 2,6005 - 6 weeks 850 - 20,8006 - 7 weeks 4000 - 100,2007 - 12 weeks 11,500 - 289,06057 - 16 weeks 18,300 - 137,50944 - 29 weeks (2nd trimester) 1,400 - 53,80518 - 41 weeks (3rd trimester) 940 - 60,000The Cross B- hCG assay is used for the early detection ofpregnancy; it cannot be used to diagnose any conditionunrelated to . If a B-hCG level is not supportedby the clinical evidence, results should be confirmed by analternative method (qualitative urine hCG, for example). Blood Venous blood specimen / Unknown 04/28/2025 10:16 AM EST 04/28/2025 1:34 PM EST Yaritza Whitlock [facility] LAB BLOOD ORDERABLES Dipti l Result Performing Organization Address [facility]/ZIP Co de Phone Number [facility] [address] [place] [phone] * FSH (04/28/2025 10:16 AM EST) Follicle Stimulating Hormone 3.0 mIU/mL [facility] Comment:Reference Range Foll icular Phase 2.5-10.2 Mid-cycle Peak 3.1-17.7 Luteal Phase 1.5- 9.1 Postmenopausal 23.0-116.3THIS TEST WAS PERFORMED AT:[facility] [address] [phone] BASS MD Blood Venous blood specimen / Unknown 04/28/2025 10:16 AM EST 04/28/2025 11:10 AM EST Result [facility] LAB BLOOD ORDERABLES Dipti l Result Performing Organization Address [facility] Co de Phone Number [facility] [address] [place] [phone] * HIV-1/2 Antigen and Antibodies, Fourth Generation, with Reflexes (11/20/2022 1:28 PM EDT) HIV Antigen/Antibody, 4th Generation NON-REAC TIVE NON-REAC TIVE [facility] Comment: HIV-1 antigen and HIV-1/HIV-2 antibodies were [...] purpose. For additional information please refer to http://[employer] ([employer])/faq/NBQ357 (This link is being provided for informational/ educational purposes only.) The performance of this assay has not been clinically validated in patients less than 2 years old. 11/20/2022 1:28 PM EDT 11/20/2022 1:29 PM EDT Narrative [facility] - 11/21/2022 7:30 PM EDT FASTING:UNKNOWN FASTING: UNKNOWN Yaritza ALLEN LAB BLOOD ORDERABLES Dipti l Result Performing Organization Address [facility] Co de Phone Number [facility] [address] [place] [phone] [facility] [address] [place] [phone] * HEPATITIS C AB W/REFL TO HCV RNA, QN, PCR (10/20/2021 1:20 PM EDT) HEPATITIS C ANTIBODY NON-REACT IFEANYI NON-REACT IFEANYI [facility] INDEX 0.03 <1.00 [facility] Comment: HCV antibody was non-reactive. There is no laboratory evidence of HCV infection. In most cases, no further action is required. However, if recent HCV exposure is suspected, a test for HCV RNA (test code 47825) is suggested. For additional information please refer to http://[employer])/faq/WDS96d5 (This link is being provided for informational/ educational purposes only.) 10/20/2021 1:20 PM EDT us Joan [facility] HISTORICAL/NON ORDERABLE LABS Final Result Performing Organization Address City/[facility] Co de Phone Number [facility] [address] from Last 3 Months or Most Recently Relevant to Health Maintenance Insurance [facility] C3 Care Teams Hospice Care Consultant Relationship Specialty Start Date End Date Kami Aponte FNP [address] [place] [phone] PCP - General Family Medicine 07/18/23 Mireille Patricia [employer] Offbearer 07/14/24
== END 2025-05-28 14:21 | disposition home or self-care (01) ==
LOC: HO.HMGCX 14:20
PROVIDERS: PCP Registered Nurse; Visit Provider Advanced Practice Midwife
DX: N92.6 Irregular menstruation, unspecified (principal)
CPT/HCPCS: 76830; 76856

== ENCOUNTER → 2025-05-28 14:21 | Outpatient (BNV) | payer MEDICAID, SELFPAY | PROVIDERS: PCP Registered Nurse; Visit Provider Specialist | DX: N93.9 Abnormal uterine and vaginal bleeding, unspecified (principal) | CPT/HCPCS: 76830; 76856 ==